=== PATIENT | male | born 1960 | race Caucasian/White ===

== ENCOUNTER 2018-03-22 00:24 | Emergency (ER) | payer OTHER ==
--- NOTE | 2018-03-22 01:59 | XR ---
EXAMINATION TYPE: XR shoulder complete RT DATE OF EXAM: 03/22/2018 COMPARISON: NONE HISTORY: Right shoulder pain TECHNIQUE: 3 views FINDINGS: I see no fracture nor dislocation. There is spurring at the AC joint. Glenohumeral joint is intact. IMPRESSION: No acute abnormality of the right shoulder.
--- NOTE | 2018-03-22 02:46 | ED ---
Alcohol HPI - General Chief Complaint: Alcohol Stated Complaint: Alcohol Time Seen by Provider: 03/22/18 00:37 Source: patient, EMS, RN notes reviewed, old records reviewed Mode of arrival: EMS Limitations: no limitations - History of Present Illness Initial Comments: This patient's a 57-year-old male presents emergency Department states she went of alcohol intoxication. He was found by [facility] the public quite intoxicated. Approximately 12 beers. He is homeless. Currently no residing at a [facility]. Patient states that he also is having some right shoulder pain it's been going on for months. Reports numbness and tingling to fingers on occasion. - Related Data Previous Rx's Medication Instructions Recorded Ibuprofen [Motrin] 600 mg PO Q8HR PRN #20 tab 03/22/18 chlordiazePOXIDE HCl [Librium] 10 mg PO DIRECTED #6 capsule 03/22/18 Allergies Allergy/AdvReac Type Severity Reaction Status Date / Time No Known Allergies Allergy Verified 03/22/18 00:35 Review of Systems ROS Statement: Those systems with pertinent positive or pertinent negative responses have been documented in the HPI. ROS Other: All systems not noted in ROS Statement are negative. Past Medical History Past Medical History: No Reported History History of Any Multi-Drug Resistant Organisms: None Reported Past Surgical History: Orthopedic Surgery Past Psychological History: No Psychological Hx Reported Smoking Status: Current every day smoker Past Alcohol Use History: Abuse Past Drug Use History: None Reported General Exam - General Exam Comments Initial Comments: Intoxicated 57-year-old male. Patient urinated on himself. Limitations: no limitations General appearance: alert, in no apparent distress Head exam: Present: atraumatic, normocephalic, normal inspection Eye exam: Present: normal appearance, PERRL, EOMI. Absent: scleral icterus, conjunctival injection, periorbital swelling ENT exam: Present: normal exam, mucous membranes moist Neck exam: Present: normal inspection. Absent: tenderness, meningismus, lymphadenopathy Respiratory exam: Present: normal lung sounds bilaterally. Absent: respiratory distress, wheezes, rales, rhonchi, stridor Cardiovascular Exam: Present: regular rate, normal rhythm, normal heart sounds. Absent: systolic murmur, diastolic murmur, rubs, gallop, clicks GI/Abdominal exam: Present: soft, normal bowel sounds. Absent: distended, tenderness, guarding, rebound, rigid Extremities exam: Present: normal inspection, full ROM, normal capillary refill. Absent: tenderness, pedal edema, joint swelling, calf tenderness Back exam: Present: normal inspection Neurological exam: Present: alert, oriented X3, CN II-XII intact Psychiatric exam: Present: normal affect, normal mood Skin exam: Present: warm, dry, intact, normal color. Absent: rash Course Vital Signs 03/22/18 00:31 Temperature 97.3 F L Pulse Rate 94 Respiratory 16 Rate Blood Pressure 123/69 O2 Sat by Pulse 97 Oximetry Medical Decision Making - Medical Decision Making Patient's 57-year-old male presents emergency department today with chief complaint alcohol and station. Patient also has had some right shoulder numbness for the past few months. Patient is quite intoxicated, Patient did urinate on his canceling sleeping. He is arousable and has normal conversation. He did complain of some numbness over his right arm and hand for many months. Vital signs are stable. He is full range of motion of the right arm and shoulder. Normal sensation. X-ray of the shoulder shows no acute abnormalities. At this time discussed the can follow-up with primary care physician with regards of the numbness and tingling down the fingers and arms. Patient will follow up with outpatient treatment service for alcohol abuse. - Radiology Data Radiology results: report reviewed No acute abnormality on right shoulder. Spurring on AC joint=. Disposition Clinical Impression: ETOH abuse, Arm paresthesia, right Disposition: HOME SELF-CARE Condition: Good Instructions: Alcohol Intoxication (ED) Additional Instructions: Patient is follow-up with outpatient treatment facilities. Prescriptions: chlordiazePOXIDE HCl [Librium] 10 mg PO DIRECTED #6 capsule Ibuprofen [Motrin] 600 mg PO Q8HR PRN #20 tab PRN Reason: Pain Is patient prescribed a controlled substance at d/c from ED?: No When asked, does pt state using other controlled substances?: No If prescribed controlled substance>3 days was MAPS reviewed?: No If opioid is for acute pain is fill amount 7 days or less?: No If Rx opioid, was Start Talking consent form obtained?: No Referrals: None,Stated [Primary Care Provider] - 1-2 days Valentina Ivy MD [STAFF PHYSICIAN] - 1-2 days Time of Disposition: 04:29
[2018-03-22 09:16] VITALS: BP 105/71; PULSE 100; RESP 18; TEMP 98.1
== END 2018-03-22 09:16 | disposition home or self-care (01) ==
LOC: EC 00:24
DX: R20.2 Paresthesia of skin (principal); M25.511 Pain in right shoulder; F10.129 Alcohol abuse with intoxication, unspecified; F17.200 Nicotine dependence, unspecified, uncomplicated; Z59.0 Homelessness
CPT/HCPCS: 82075; 99285

== ENCOUNTER 2022-07-02 11:39 | Inpatient (IN) | payer OTHER ==
--- NOTE | 2022-07-02 12:27 | XR ---
EXAMINATION TYPE: XR chest 2V DATE OF EXAM: 07/02/2022 COMPARISON: NONE HISTORY: Shortness of breath TECHNIQUE: Frontal and lateral views of the chest are obtained. FINDINGS: Small bilateral pleural effusions and bibasilar opacities favoring associated compressive atelectasis. Mild interstitial edema or prominence. The upper lungs are clear without pneumothorax T he cardiac silhouette size is upper limits of normal. The osseous structures are intact. IMPRESSION: Small bilateral pleural effusions with associated compressive atelectasis and mild bilat eral interstitial edema. Correlate for fluid overload state.
[2022-07-02 12:51] LABS: Basophils % (A) 0 %; Eosinophils % (A) 0 %; HCT 35.8 % (39.0-53.0); HGB 12.3 gm/dL (13.0-17.5); Lymphocytes # (A) 0.7 k/uL (1.0-4.8); Lymphocytes % (A) 4 %; MCH 32.1 pg (25.0-35.0); MCHC 34.3 g/dL (31.0-37.0); MCV 93.7 fL (80.0-100.0); Mean Platelet Volume 8.9; Monocytes # (A) 0.9 k/uL (0-1.0); Monocytes % (A) 5 %; Neutrophils # (A) 16.9 k/uL (1.3-7.7); Neutrophils % (A) 90 %; Platelet Count 396 k/uL (150-450); RBC 3.82 m/uL (4.30-5.90); RDW 13.9 % (11.5-15.5); WBC 18.8 k/uL (3.8-10.6)
[2022-07-02 13:11] LABS: ALT 24 U/L (4-49); AST 39 U/L (17-59); African American GFR (CKD) >90 (>60 ml/min/1.73 sqM); Albumin 3.2 g/dL (3.5-5.0); Alkaline Phosphatase 59 U/L (38-126); Anion Gap 17 mmol/L; Blood Urea Nitrogen 9 mg/dL (9-20); Calcium 8.3 mg/dL (8.4-10.2); Carbon Dioxide 18 mmol/L (22-30); Chloride 95 mmol/L (98-107); Glucose 116 mg/dL (74-99); Magnesium 1.8 mg/dL (1.6-2.3); Non-African American GFR(CKD) >90 (>60 ml/min/1.73 sqM); Potassium 3.8 mmol/L (3.5-5.1); Sodium 130 mmol/L (137-145)
[2022-07-02 13:20] LABS: Partial Thromboplastin Time 30.6 sec (22.0-30.0); Prothrombin Time 10.9 sec (9.0-12.0)
--- NOTE | 2022-07-02 14:23 | CT ---
EXAMINATION TYPE: CT chest angio for PE DATE OF EXAM: 07/02/2022 COMPARISON: Chest x-ray earlier today HISTORY: Dyspnea CT DLP: 248 mGycm. Automated Exposure Control for Dose Reduction was Utilized. CONTRAST: CTA scan of the thorax is performed with IV Contrast, patient injected with 100 mL of Isovue 370, pul monary embolism protocol. MIP Images are created on CT scanner and reviewed. FINDINGS: LUNGS: Small to borderline moderate size left pleural fluid collection does not completely layer depe ndently. Similar finding on the right is noted. Exam is suboptimal as patient unable to hold breath. Groundglass opacity organizing consolidations in the right lower lobe are present. Findings also seen in the left lower lobe but less prominent. No pneumothorax seen bilaterally. MEDIASTINUM: There is a suboptimal study. Most dense contrast in the SVC. Equal contrast opacificati on of the aorta measuring up to 3.6 cm in diameter. No dissection is seen. Bovine aortic arch and dir ect origin left vertebral artery from arch which are both normal variants. Heterogeneity in the pulmo nary arteries without central pulmonary embolism. Suboptimal evaluation of smaller peripheral segment al and subsegmental branches noted. Mild cardiomegaly confirmed. No pericardial effusion is seen. Mil [id number] left atrial and left ventricular dilatation noted. Enlarged 1.8 x 1.4 cm pericarinal ly mph node axial image 66. Prominent right hilar lymph nodes. Additional prominent lymph nodes througho ut the mediastinum are seen. OTHER: Slight scoliotic curvature. IMPRESSION: 1. Suboptimal study without central pulmonary embolism. Smaller peripheral pulmonary emboli cannot be excluded on this exam. 2. Correlate for CHF exacerbation as there is confirmation of cardiomegaly with small to borderline m oderate sized bilateral pleural fluid collections. 3. There are Ground glass opacity is and organizing consolidations in the bilateral lower lobes right greater than left, acute infectious process needs to be considered. Correlate clinically. 4. Some abnormal thoracic adenopathy. Reactive adenopathy from infection would be favored. Correlate clinically.
--- NOTE | 2022-07-02 14:30 | ED ---
General Adult HPI - General Chief complaint: Shortness of Breath Stated complaint: SOB Time Seen by Provider: 07/02/22 12:07 Source: patient, RN notes reviewed Mode of arrival: ambulatory Limitations: no limitations - History of Present Illness Initial comments: 61-year-old male presents emergency Department from PCPs office for evaluation of shortness breath, cough. Patient states 3 days ago he started having increasing cough states is per . cough at times, states it's worse when he lays down. Patient states he feels short of breath. Patient states that he has no prior lung heart disease. Patient states is normally very active right despite daily. Patient denies any recent medication changes denies abdominal pain denies any GI symptoms clean nausea and diarrhea constipation denies any symptoms leg swelling. - Related Data Home Medications Medication Instructions Recorded Confirmed Cholecalciferol [Vitamin D3 (25 25 mcg PO DAILY 07/02/22 07/02/22 Mcg = 1000 Iu)] Cyanocobalamin (Vitamin B-12) 1,000 mcg PO DAILY 07/02/22 07/02/22 [Vitamin B-12] Allergies Allergy/AdvReac Type Severity Reaction Status Date / Time No Known Allergies Allergy Verified 07/02/22 14:10 Review of Systems ROS Statement: Those systems with pertinent positive or pertinent negative responses have been documented in the HPI. ROS Other: All systems not noted in ROS Statement are negative. Past Medical History Past Medical History: No Reported History History of Any Multi-Drug Resistant Organisms: None Reported Past Surgical History: Orthopedic Surgery Past Psychological History: No Psychological Hx Reported Smoking Status: Current every day smoker Past Alcohol Use History: Occasional Past Drug Use History: None Reported General Exam Limitations: no limitations Course Vital Signs 07/02/22 07/02/22 11:42 13:05 Temperature 98.3 F Pulse Rate 123 H 84 Respiratory 24 18 Rate Blood Pressure 144/88 157/87 O2 Sat by Pulse 90 L 94 L Oximetry Medical Decision Making - Lab Data Result diagrams: 07/02/22 12:43 07/02/22 12:43 Lab Results 07/02/22 07/02/22 07/02/22 Range/Units 12:43 12:43 12:43 WBC 18.8 H (3.8-10.6) k/uL RBC 3.82 L (4.30-5.90) m/uL Hgb 12.3 L (13.0-17.5) gm/dL Hct 35.8 L (39.0-53.0) % MCV 93.7 (80.0-100.0) fL MCH 32.1 (25.0-35.0) pg MCHC 34.3 (31.0-37.0) g/dL RDW 13.9 (11.5-15.5) % Plt Count 396 (150-450) k/uL MPV 8.9 Neutrophils % 90 % Lymphocytes % 4 % Monocytes % 5 % Eosinophils % 0 % Basophils % 0 % Neutrophils # 16.9 H (1.3-7.7) k/uL Lymphocytes # 0.7 L (1.0-4.8) k/uL Monocytes # 0.9 (0-1.0) k/uL Eosinophils # 0.0 (0-0.7) k/uL Basophils # 0.0 (0-0.2) k/uL PT 10.9 (9.0-12.0) sec INR 1.0 (<1.2) APTT 30.6 H (22.0-30.0) sec D-Dimer 6.27 H (<0.60) mg/L FEU Sodium 130 L (137-145) mmol/L Potassium 3.8 (3.5-5.1) mmol/L Chloride 95 L (98-107) mmol/L Carbon Dioxide 18 L (22-30) mmol/L Anion Gap 17 mmol/L BUN 9 (9-20) mg/dL Creatinine 0.62 L (0.66-1.25) mg/dL Est GFR (CKD-EPI)AfAm >90 (>60 ml/min/1.73 sqM) Est GFR (CKD-EPI)NonAf >90 (>60 ml/min/1.73 sqM) Glucose 116 H (74-99) mg/dL Plasma Lactic Acid Magan (0.7-2.0) mmol/L Calcium 8.3 L (8.4-10.2) mg/dL Magnesium 1.8 (1.6-2.3) mg/dL Total Bilirubin 1.0 (0.2-1.3) mg/dL AST 39 (17-59) U/L ALT 24 (4-49) U/L Alkaline Phosphatase 59 (38-126) U/L Troponin I (0.000-0.034) ng/mL NT-Pro-B Natriuret Pep pg/mL Total Protein 6.0 L (6.3-8.2) g/dL Albumin 3.2 L (3.5-5.0) g/dL 07/02/22 07/02/22 07/02/22 Range/Units 12:43 12:43 12:43 WBC (3.8-10.6) k/uL RBC (4.30-5.90) m/uL Hgb (13.0-17.5) gm/dL Hct (39.0-53.0) % MCV (80.0-100.0) fL MCH (25.0-35.0) pg MCHC (31.0-37.0) g/dL RDW (11.5-15.5) % Plt Count (150-450) k/uL MPV Neutrophils % % Lymphocytes % % Monocytes % % Eosinophils % % Basophils % % Neutrophils # (1.3-7.7) k/uL Lymphocytes # (1.0-4.8) k/uL Monocytes # (0-1.0) k/uL Eosinophils # (0-0.7) k/uL Basophils # (0-0.2) k/uL PT (9.0-12.0) sec INR (<1.2) APTT (22.0-30.0) sec D-Dimer (<0.60) mg/L FEU Sodium (137-145) mmol/L Potassium (3.5-5.1) mmol/L Chloride (98-107) mmol/L Carbon Dioxide (22-30) mmol/L Anion Gap mmol/L BUN (9-20) mg/dL Creatinine (0.66-1.25) mg/dL Est GFR (CKD-EPI)AfAm (>60 ml/min/1.73 sqM) Est GFR (CKD-EPI)NonAf (>60 ml/min/1.73 sqM) Glucose (74-99) mg/dL Plasma Lactic Acid Magan 1.3 (0.7-2.0) mmol/L Calcium (8.4-10.2) mg/dL Magnesium (1.6-2.3) mg/dL Total Bilirubin (0.2-1.3) mg/dL AST (17-59) U/L ALT (4-49) U/L Alkaline Phosphatase (38-126) U/L Troponin I <0.012 (0.000-0.034) ng/mL NT-Pro-B Natriuret Pep 826 pg/mL Total Protein (6.3-8.2) g/dL Albumin (3.5-5.0) g/dL Disposition Clinical Impression: Pulmonary edema, New onset of congestive heart failure, Bilateral pneumonia Disposition: ADMITTED IP TO THIS HOSP Condition: Fair Referrals: Kristin Cavanaugh MD [Primary Care Provider] - 1-2 days Time of Disposition: 14:30
[2022-07-02] MEDS ORDERED: IPRATROPIUM-ALBUTEROL 3 ML NEB INHALATION PRN (14:35)
[2022-07-02] MEDS ORDERED: PNEUMONIA PROTOCOL UTILIZED 1 EACH MISC PO PRN (14:35)
[2022-07-02] MEDS ORDERED: AZITHROMYCIN 500 MG in SODIUM CHLORIDE 0.9% 250 ML IVPB STA (14:35)
[2022-07-02] MEDS ORDERED: FUROSEMIDE 10 MG/ML 4 ML VIAL IV STA (15:18)
--- NOTE | 2022-07-03 01:44 | P.HPIM ---
History of Present Illness H&P Date: 07/02/22 Chief Complaint: Exertional dyspnea Patient is a 61-year-old male with a known history of ongoing nicotine Addiction was sent to ER by his primary care physician for evaluation of cough and shortness of breath. Patient states that he has been having exertional dyspnea and cough for the past 3 days. Patient states that he has been feeling well before this and is easily active daily.. Patient does have cough without much sputum production. Denied any fevers or chills at home. No complaints of chest pain. No nausea vomiting abdominal pain or diarrhea. On admission blood pressure was 144/88 pulse 123 respiration 24 and pulse ox 90% on room air. Chest x-ray showed small bilateral pleural effusions with associated compressive ectasis and mild bilateral interstitial edema. Correlate for fluid overload state. Patient was found to have elevated D-dimer level to 6. CT angiogram of the chest showed suboptimal study without central pulmonary embolism. Smaller per ipheral pulmonary emboli cannot be excluded. Correlate for CHF exacerbation as there is confirmation of cardiomegaly with small to borderline moderate sized bilateral pleural fluid collections. Groundglass opacity is an organizing consolidations in the bilateral lower lobes right greater than left, acute infective process need to be considered. Correlate clinically. Some abnormal thoracic adenopathy. Reactive adenopathy from infection will be favored. Laboratory data showed WBC 18.8 hemoglobin 12.3 and platelets 396 neutrophils 16.9 D-dimer 6.27 Sodium 130 potassium 3.8 chloride 95 bicarb is 18 BUN 9 and creatinine 0.62 and blood sugar 116 Liver enzymes are not elevated proBNP 826 and albumin level is 3.2 Coronavirus PCR not detected. Review of Systems Constitutional: Patient denies any fever or chills . no Generalized weakness. Abdomen: Patient denied any nausea or vomiting or abd. pain Cardiovascular: Patient denies any chest pain. Positive short of breath no palpitations. No leg swelling Respiratory: Patient does have cough with whitish sputum production. Exertional dyspnea and shortness of breath Neurologic: Patient denied any numbness or tingling headache. Musculoskeletal: Patient denies any complaints of joint swelling or deformity. Skin: Negative Psychiatric: Negative Endocrine: No heat or cold intolerance. No recent weight gain. Genitourinary: No dysuria or hematuria. All other 14 point ROS negative except the above Past Medical History Past Medical History: No Reported History History of Any Multi-Drug Resistant Organisms: None Reported Past Surgical History: Orthopedic Surgery Past Psychological History: No Psychological Hx Reported Smoking Status: Current every day smoker Past Alcohol Use History: Occasional Past Drug Use History: None Reported Medications and Allergies Home Medications Medication Instructions Recorded Confirmed Type Cholecalciferol [Vitamin D3 (25 25 mcg PO DAILY 07/02/22 07/02/22 History Mcg = 1000 Iu)] Cyanocobalamin (Vitamin B-12) 1,000 mcg PO DAILY 07/02/22 07/02/22 History [Vitamin B-12] Allergies Allergy/AdvReac Type Severity Reaction Status Date / Time No Known Allergies Allergy Verified 07/02/22 14:10 Physical Exam Vitals: Vital Signs Temp Pulse Pulse Resp BP BP Pulse Ox 07/02/22 20:10 18 07/02/22 20:00 97.0 F L 111 H 17 131/89 94 L 07/02/22 15:55 94 L 07/02/22 15:16 90 18 134/71 94 L 07/02/22 13:05 84 18 157/87 94 L 07/02/22 11:42 98.3 F 123 H 24 144/88 90 L FiO2 07/02/22 20:10 07/02/22 20:00 07/02/22 15:55 21 07/02/22 15:16 07/02/22 13:05 07/02/22 11:42 Intake and Output 07/02/22 07/02/22 07/02/22 06:59 14:59 22:59 Other: Voiding Method Toilet # Voids 1 Weight 75.75 kg 75.75 kg PHYSICAL EXAMINATION: Patient is lying in the bed comfortably, no acute distress, awake alert and oriented.. HEENT: Normocephalic. Neck is supple. Pupils reactive. Nostrils clear. Oral cavity is moist. Neck reveals no JVD, carotid bruits, or thyromegaly. CHEST EXAMINATION: Trachea is central. Symmetrical expansion. Bibasilar crackles and mild expiratory wheeze. No rhonchi. Nonlabored breathing.. CARDIAC: Normal S1, S2 with no gallops. No murmurs ABDOMEN: Soft. Bowel sounds present. Nontender. No organomegaly. No abdominal bruits. Extremities: reveal no edema. No clubbing or cyanosis Neurologically awake, alert, oriented x3 with well-coordinated movements. No focal deficits noted Skin: No rash or skin lesions. Psychiatric: Coperative. Nonsuicidal, Musculoskeletal: No joint swelling or deformity. Normal range of motion. Results CBC & Chem 7: 07/02/22 12:43 07/02/22 12:43 Labs: Abnormal Lab Results - Last 24 Hours (Table) 07/02/22 07/02/22 07/02/22 Range/Units 12:43 12:43 12:43 WBC 18.8 H (3.8-10.6) k/uL RBC 3.82 L (4.30-5.90) m/uL Hgb 12.3 L (13.0-17.5) gm/dL Hct 35.8 L (39.0-53.0) % Neutrophils # 16.9 H (1.3-7.7) k/uL Lymphocytes # 0.7 L (1.0-4.8) k/uL APTT 30.6 H (22.0-30.0) sec D-Dimer 6.27 H (<0.60) mg/L FEU Sodium 130 L (137-145) mmol/L Chloride 95 L (98-107) mmol/L Carbon Dioxide 18 L (22-30) mmol/L Creatinine 0.62 L (0.66-1.25) mg/dL Glucose 116 H (74-99) mg/dL Calcium 8.3 L (8.4-10.2) mg/dL Total Protein 6.0 L (6.3-8.2) g/dL Albumin 3.2 L (3.5-5.0) g/dL Thrombosis Risk Factor Assmnt - DVT/VTE Prophylaxis DVT/VTE Prophylaxis: Pharmacologic Prophylaxis ordered - Choose All That Apply Any of the Below Risk Factors Present?: Yes Each Factor Represents 1 point: Age 41-60 years Other Risk Factors: No Other congenital or acquired thrombophilia - If yes, enter type in comment: No Thrombosis Risk Factor Assessment Total Risk Factor Score: 1 Thrombosis Risk Factor Assessment Level: Low Risk Assessment and Plan Assessment: Acute bilateral pneumonia with groundglass opacity and organizing consolidat ions. Sepsis secondary to pneumonia Moderate bilateral pleural effusion Possible underlying COPD Hypovolemic hyponatremia Ongoing nicotine addiction History of COVID-19 infection in November 2020 DVT prophylaxis with heparin subcu Plan: Patient will be continued on antibiotics azithromycin and ceftriaxone IV. Follow-up sputum cultures and blood cultures. Patient was given IV Lasix and continue with duo nebs. Pulmonary was consulted due to alkalizing consolidation and pleural effusions. Continue to follow closely. Prognosis guarded.. Time with Patient: Greater than 30
--- NOTE | 2022-07-03 08:34 | XR ---
EXAMINATION TYPE: XR chest 2V DATE OF EXAM: 07/03/2022 COMPARISON: Chest x-ray and CT 07/02/2022 HISTORY: Pneumonia TECHNIQUE: Frontal and lateral views of the chest are obtained. FINDINGS: Bibasilar density obscures the hemidiaphragms. Heart is also obscured and may be enlarged. There is no evident pneumothorax. Bones are stable. IMPRESSION: Possible basilar basilar effusions with associated atelectasis, correlate for pneumonia or possible congestive heart failure
[2022-07-03] MEDS: HEPARIN SODIUM,PORCINE/PF 5,000 UNIT/0.5 ML SYRINGE SQ SCH ×3 (09:43→23:45)
[2022-07-03] MEDS: FAMOTIDINE 20 MG TAB PO SCH ×2 (09:44→20:27)
[2022-07-03] MEDS: CHOLECALCIFEROL 25 MCG (1000 IU) TABLET PO SCH (09:44)
[2022-07-03] MEDS: CYANOCOBALAMIN 500 MCG TAB PO SCH (09:50)
[2022-07-03] MEDS: AZITHROMYCIN 500 MG TAB PO SCH (10:58)
[2022-07-03 12:55] LABS: Basophils # (A) 0.09 X 10*3/uL (0.00-0.10); Basophils % (A) 0.5 %; Eosinophils # (A) 0.05 X 10*3/uL (0.04-0.35); Eosinophils % (A) 0.3 %; HCT 34.2 % (39.6-50.0); HGB 11.6 g/dL (13.0-17.0); Immature Grans, Automated 1.1 %; Lymphocytes # (A) 1.06 X 10*3/uL (0.90-5.00); Lymphocytes % (A) 5.4 %; MCH 31.8 pg (27.0-32.0); MCHC 33.9 g/dL (32.0-37.0); MCV 93.7 fL (80.0-97.0); Mean Platelet Volume 11.2 fL (9.5-12.2); Monocytes # (A) 1.05 X 10*3/uL (0.20-1.00); Monocytes % (A) 5.4 %; NRBC Per 100 WBC 0 /100 WBCS (0.0-0.0); Neutrophils # (A) 17.14 X 10*3/uL (1.80-7.70); Neutrophils % (A) 87.3 %; Platelet Count 465 X 10*3/uL (140-440); RBC 3.65 X 10*6/uL (4.40-5.60); RDW 15.5 % (11.5-14.5)
[2022-07-03 13:20] LABS: BUN/Creat Ratio 15.98 Ratio (12.00-20.00); Blood Urea Nitrogen 10.5 mg/dL (9.0-27.0); Calcium 8.3 mg/dL (8.7-10.3); Carbon Dioxide 23.6 mmol/L (20.0-27.5); Chloride 94 mmol/L (96-109); Glucose 159 mg/dL (70-110); Non-African American GFR(CKD) 105.3 (60.0-200.0); Potassium 3.3 mmol/L (3.5-5.5); Sodium 132 mmol/L (135-145)
[2022-07-03] MEDS ORDERED: POTASSIUM CHLORIDE ER 20 MEQ TAB.ER PO STA (13:52)
--- NOTE | 2022-07-03 15:08 | P.CNPUL ---
History of Present Illness Consult date: 07/03/22 Requesting physician: Esau Husain Reason for consult: dyspnea, abnormal CXR/CT Chief complaint: Shortness of breath, cough or congestion History of present illness: This a very pleasant 61-year-old male patient who Follows Doctor Salvador Hughes. He has no significant past medical history. Not on any home medications. He developed increasing shortness of breath, cough and congestion and presented here to the emergency room yesterday for the same. Chest x-ray reveals small bilateral pleural effusions with associated compressive atelectasis and mild bilateral interstitial edema. Fluid volume overload. CT angiogram was suboptimal for central pulmonary embolism. Correlate for CHF exacerbation as there is confirmation of cardiomegaly small to borderline pleural effusions. There is groundglass opacity and organizing consolidation in the bilateral lower shoulders right greater than left, acute processes be considered. Thoracic adenopathy. Reactive adenopathy from infection is favored. Drip, acute infectious process needs to be considered. Some abnormal thoracic adenopathy. Reactive adenopathy from infection is favored. White count 19.6. Hemoglobin 11.6. D-dimer 6.27. Sodium 132. Potassium 3.3. Glucose 159. proCalcitonin 0.49. Clindamycin by PCR not detected. ProBNP 826. He has been initiated on azithromycin and ceftriaxone. Heparin for DVT prophylaxis. He was given Lasix 40 mg IVP 1. He is seen today in consultation on the regular medical floor. Awake and alert in no acute distress. He is currently maintaining good O2 saturations in the 90s on room air. Afebrile. Hemodynamically stable. Review of Systems REVIEW OF SYSTEMS: CONSTITUTIONAL: Denies any recent significant weight loss or weight gain. EYES: Denies change in vision. EARS, NOSE, MOUTH, THROAT: Denies headaches, denies sore throat. CARDIOVASCULAR: Denies chest pain, palpitations or syncopal episodes. RESPIRATORY: Positive for shortness of breath, cough, congestion no hemoptysis. GASTROINTESTINAL: Denies change in appetite, denies abdominal pain GENITOURINARY: Denies hematuria, denies infections. MUSKULOSKELETAL: Denies pain, denies swelling. INTEGUMENTARY: Denies rash, denies eczema. NEUROLOGICAL: Denies recent memory loss, no recent seizure activity. PSYCHIATRIC: Denies anxiety, denies depression. HEMATOLOGIC/LYMPHATIC: Denies anemia, denies enlarged lymph nodes. Past Medical History Past Medical History: No Reported History History of Any Multi-Drug Resistant Organisms: None Reported Past Surgical History: Orthopedic Surgery Past Psychological History: No Psychological Hx Reported Smoking Status: Current every day smoker Past Alcohol Use History: Occasional Past Drug Use History: None Reported Medications and Allergies Home Medications Medication Instructions Recorded Confirmed Type Cholecalciferol [Vitamin D3 (25 25 mcg PO DAILY 07/02/22 07/02/22 History Mcg = 1000 Iu)] Cyanocobalamin (Vitamin B-12) 1,000 mcg PO DAILY 07/02/22 07/02/22 History [Vitamin B-12] Allergies Allergy/AdvReac Type Severity Reaction Status Date / Time No Known Allergies Allergy Verified 07/02/22 14:10 Physical Exam Vitals: Vital Signs Temp Pulse Pulse Resp BP BP Pulse Ox 07/03/22 07:43 98.3 F 87 18 119/75 91 L 07/03/22 01:58 96.9 F L 91 16 124/77 92 L 07/02/22 20:10 18 07/02/22 20:00 97.0 F L 111 H 17 131/89 94 L 07/02/22 15:55 94 L 07/02/22 15:16 90 18 134/71 94 L FiO2 07/03/22 07:43 07/03/22 01:58 07/02/22 20:10 07/02/22 20:00 07/02/22 15:55 21 07/02/22 15:16 Intake and Output 07/02/22 07/03/22 07/03/22 22:59 06:59 14:59 Other: Voiding Method Toilet Toilet # Voids 1 4 Weight 75.75 kg GENERAL EXAM: Alert, pleasant 61-year-old male patient on room air, comfortable in no apparent distress. HEAD: Normocephalic. EYES: Normal reaction of pupils, equal size. NOSE: Clear with pink turbinates. THROAT: No erythema or exudates. NECK: No masses, no JVD. CHEST: No chest wall deformity. LUNGS: Equal air entry with faint crackles in the posterior bases. CVS: S1 and S2 normal with no audible murmur, regular rhythm. ABDOMEN: No hepatosplenomegaly, normal bowel sounds, no guarding or rigidity. SPINE: No scoliosis or deformity SKIN: No rashes CENTRAL NERVOUS SYSTEM: No focal deficits, tone is normal in all 4 extremities. EXTREMITIES: There is no peripheral edema. No clubbing, no cyanosis. Peripheral pulses are intact. Results - Laboratory Findings CBC and BMP: 07/03/22 06:53 07/03/22 06:53 PT/INR, D-dimer PT 10.9 sec (9.0-12.0) 07/02/22 12:43 INR 1.0 (<1.2) 07/02/22 12:43 D-Dimer 6.27 mg/L FEU (<0.60) H 07/02/22 12:43 Abnormal lab findings: Abnormal Labs 07/02/22 07/02/22 07/02/22 12:43 12:43 12:43 WBC 18.8 H RBC 3.82 L Hgb 12.3 L Hct 35.8 L RDW Plt Count Immature Gran # Neutrophils # 16.9 H Lymphocytes # 0.7 L Monocytes # APTT 30.6 H D-Dimer 6.27 H Sodium 130 L Potassium Chloride 95 L Carbon Dioxide 18 L Creatinine 0.62 L Glucose 116 H Calcium 8.3 L Total Protein 6.0 L Albumin 3.2 L Procalcitonin 07/03/22 07/03/22 07/03/22 06:53 06:53 06:53 WBC 19.60 H RBC 3.65 L Hgb 11.6 L Hct 34.2 L RDW 15.5 H Plt Count 465 H Immature Gran # 0.21 H Neutrophils # 17.14 H Lymphocytes # Monocytes # 1.05 H APTT D-Dimer Sodium 132 L Potassium 3.3 L Chloride 94 L Carbon Dioxide Creatinine Glucose 159 H Calcium 8.3 L Total Protein Albumin Procalcitonin 0.49 H - Diagnostic Findings Chest x-ray: image reviewed CT scan - chest: image reviewed Assessment and Plan Assessment: Dyspnea secondary to suspected exacerbation of possible systolic versus diastoli c congestive heart failure and/or community-acquired pneumonia. Echocardiogram pending. Procalcitonin 0.49. Bermudez virus not detected Leukocytosis secondary to above Chronic and ongoing tobacco dependence Plan: The patient was seen and evaluated Chest x-ray, CAT scan and labs reviewed Continue azithromycin and ceftriaxone for now Echocardiogram pending He is educated regarding the importance of complete smoking cessation Nicoderm patch should be ordered. We will continue to follow and make further recommendations based on his clinical status I have personally seen and examined the patient, performed the documentation and the assessment and plan as written. Number of minutes spent on the visit: 20.
--- NOTE | 2022-07-03 15:21 | CA ---
Transthoracic Echo Report Name: Vadim Velez Age: 61 Gender: M : 1960 Exam Date: 07/02/2022 15:32 Exam Location: [facility] Ht (in): 72 Wt (lb): 167 Ordering Physician: Ricky Benedict Attending/Referring Phys: [id number], Jak [employer] Kika Goode, RACHAEL Procedure CPT: Indications: Bilateral pleural effusion, pulmonary edema Cardiac Hx: Technical Quality: Contrast 1: Total Dose (mL): Contrast 2: Total Dose (mL): MEASUREMENTS (Male / Female) Normal Values 2D ECHO LV Diastolic Diameter PLAX 4.9 cm 4.2 - 5.9 / 3.9 - 5.3 cm LV Systolic Diameter PLAX 3.4 cm IVS Diastolic Thickness 1.0 cm 0.6 - 1.0 / 0.6 - 0.9 cm LVPW Diastolic Thickness 1.6 cm 0.6 - 1.0 / 0.6 - 0.9 cm LV Relative Wall Thickness 0.5 M-MODE Aortic Root Diameter MM 3.5 cm LA Systolic Diameter MM 3.9 cm LA Ao Ratio MM 1.1 MV E Point Septal Separation 0.3 cm AV Cusp Separation MM 2.2 cm DOPPLER MV Area PHT 3.6 cm??? Mitral E Point Velocity 67.7 cm/s Mitral A Point Velocity 86.0 cm/s Mitral E to A Ratio 0.8 MV Deceleration Time 211.9 ms MV E' Velocity 8.8 cm/s Mitral E to MV E' Ratio 7.7 TR Peak Velocity 277.8 cm/s TR Peak Gradient 30.9 mmHg Right Ventricular Systolic Press 35.8 mmHg FINDINGS Left Ventricle Left ventricular ejection fraction is estimated at 50-55%. Right Ventricle Mild right ventricular dilatation. Mild pulmonary hypertension. Right Atrium Normal right atrial size. Left Atrium Normal left atrial size. Mitral Valve Structurally normal mitral valve. Mild mitral regurgitation. Aortic Valve Trileaflet aortic valve. Tricuspid Valve Structurally normal tricuspid valve. Pulmonic Valve Structurally normal pulmonic valve. Pericardium Normal pericardium. Aorta Normal size aortic root and proximal ascending aorta. CONCLUSIONS Normal LV systolic function Previewed by: Dr. Lennox Benítez MD (Electronically Signed) Final Date: 03 July 2022 15:20
[2022-07-03] MEDS: NICOTINE 14MG/24HR PATCH TRANSDERM SCH (16:06)
--- NOTE | 2022-07-04 00:49 | P.PN ---
Subjective Progress Note Date: 07/03/22 Patient is a 61-year-old male with a known history of ongoing nicotine Addiction was sent to ER by his primary care physician for evaluation of cough and shortness of breath. Patient states that he has been having exertional dyspnea and cough for the past 3 days. Patient states that he has been feeling well before this and is easily active daily.. Patient does have cough without much sputum production. Denied any fevers or chills at home. No complaints of chest pain. No nausea vomiting abdominal pain or diarrhea. On admission blood pressure was 144/88 pulse 123 respiration 24 and pulse ox 90% on room air. Chest x-ray showed small bilateral pleural effusions with associated compressive ectasis and mild bilateral interstitial edema. Correlate for fluid overload state. Patient was found to have elevated D-dimer level to 6. CT angiogram of the chest showed suboptimal study without central pulmonary embolism. Smaller peripheral pulmonary emboli cannot be excluded. Correlate for CHF exacerbation as there is confirmation of cardiomegaly with small to borderline moderate sized bilateral pleural fluid collections. Groundglass opacity is an organizing consolidations in the bilateral lower lobes right greater than left, acute infective process need to be considered. Correlate clinically. Some abnormal thoracic adenopathy. Reactive adenopathy from infection will be favored. Laboratory data showed WBC 18.8 hemoglobin 12.3 and platelets 396 neutrophils 16.9 D-dimer 6.27 Sodium 130 potassium 3.8 chloride 95 bicarb is 18 BUN 9 and creatinine 0.62 and blood sugar 116 Liver enzymes are not elevated proBNP 826 and albumin level is 3.2 Coronavirus PCR not detected. 07/03/2022 Patient is currently lying in the bed. Awake alert and oriented x3. Patient states that his breathing is better today. Currently on room air. Patient has been afebrile. No nausea vomiting or diarrhea. Still having exertional short of breath. Patient is being current on antibiotics in the form of ceftriaxone and azithromycin. Continue on duo nebs. Pulmonology is on board. Laboratory data showed WBC 19.6 hemoglobin 11.6 and platelets 465 BUN 10.5 and creatinine 0.7 sodium 132 potassium 3.3 chloride 94 and procalcitonin level was 0.49. Current medications reviewed. Objective - Vital Signs Vital signs: Vital Signs Temp 98.3 F 07/03/22 07:43 Pulse 87 07/03/22 07:43 Resp 18 07/03/22 07:43 BP 119/75 07/03/22 07:43 Pulse Ox 91 L 07/03/22 07:43 FiO2 21 07/02/22 15:55 Intake & Output 07/02/22 07/03/22 07/03/22 18:59 06:59 18:59 Weight 75.75 kg Other: Voiding Method Toilet Toilet # Voids 1 4 - Exam PHYSICAL EXAMINATION: Patient is lying in the bed comfortably, no acute distress, awake alert and oriented.. HEENT: Normocephalic. Neck is supple. Pupils reactive. Nostrils clear. Oral cavity is moist. Neck reveals no JVD, carotid bruits, or thyromegaly. CHEST EXAMINATION: Trachea is central. Symmetrical expansion. Bibasilar crackles and mild expiratory wheeze. No rhonchi. Nonlabored breathing.. CARDIAC: Normal S1, S2 with no gallops. No murmurs ABDOMEN: Soft. Bowel sounds present. Nontender. No organomegaly. No abdominal bruits. Extremities: reveal no edema. No clubbing or cyanosis Neurologically awake, alert, oriented x3 with well-coordinated movements. No focal deficits noted Skin: No rash or skin lesions. Psychiatric: Coperative. Nonsuicidal, Musculoskeletal: No joint swelling or deformity. Normal range of motion. - Labs CBC & Chem 7: 07/03/22 06:53 07/03/22 06:53 Labs: Abnormal Lab Results - Last 24 Hours (Table) 07/03/22 07/03/22 07/03/22 Range/Units 06:53 06:53 06:53 WBC 19.60 H (4.50-10.00) X 10*3/uL RBC 3.65 L (4.40-5.60) X 10*6/uL Hgb 11.6 L (13.0-17.0) g/dL Hct 34.2 L (39.6-50.0) % RDW 15.5 H (11.5-14.5) % Plt Count 465 H (140-440) X 10*3/uL Immature Gran # 0.21 H (0.00-0.04) X 10*3/uL Neutrophils # 17.14 H (1.80-7.70) X 10*3/uL Monocytes # 1.05 H (0.20-1.00) X 10*3/uL Sodium 132 L (135-145) mmol/L Potassium 3.3 L (3.5-5.5) mmol/L Chloride 94 L (96-109) mmol/L Glucose 159 H (70-110) mg/dL Calcium 8.3 L (8.7-10.3) mg/dL Procalcitonin 0.49 H (0.02-0.09) ng/mL Assessment and Plan Assessment: Acute bilateral pneumonia with groundglass opacity and organizing conso lidations. Sepsis secondary to pneumonia Moderate bilateral pleural effusion Possible underlying COPD Hypovolemic hyponatremia Ongoing nicotine addiction History of COVID-19 infection in November 2020 DVT prophylaxis with heparin subcu Plan: Patient will be continued on antibiotics azithromycin and ceftriaxone IV. Follow-up sputum cultures and blood cultures. Patient was given IV Lasix and continue with duo nebs. 2D echocardiogram showed normal ejection fraction. Pulmonary was consulted due to organizing consolidation and pleural effusions. Continue to follow closely. Prognosis guarded.. Time with Patient: Greater than 30
[2022-07-04] MEDS: CYANOCOBALAMIN 500 MCG TAB PO SCH (09:52)
[2022-07-04] MEDS: HEPARIN SODIUM,PORCINE/PF 5,000 UNIT/0.5 ML SYRINGE SQ SCH ×3 (09:52→23:43)
[2022-07-04] MEDS: FAMOTIDINE 20 MG TAB PO SCH ×2 (09:52→22:08)
[2022-07-04] MEDS: AZITHROMYCIN 500 MG TAB PO SCH (09:53)
[2022-07-04] MEDS: CHOLECALCIFEROL 25 MCG (1000 IU) TABLET PO SCH (09:53)
[2022-07-04] MEDS: NICOTINE 14MG/24HR PATCH TRANSDERM SCH (10:05)
[2022-07-04 10:45] LABS: Basophils # (A) 0.12 X 10*3/uL (0.00-0.10); Basophils % (A) 0.7 %; Eosinophils # (A) 0.21 X 10*3/uL (0.04-0.35); Eosinophils % (A) 1.2 %; HCT 36.7 % (39.6-50.0); HGB 12.3 g/dL (13.0-17.0); Immature Grans, Automated 2.5 %; Lymphocytes # (A) 1.37 X 10*3/uL (0.90-5.00); Lymphocytes % (A) 8.1 %; MCH 31.9 pg (27.0-32.0); MCHC 33.5 g/dL (32.0-37.0); MCV 95.1 fL (80.0-97.0); Mean Platelet Volume 11.1 fL (9.5-12.2); Monocytes # (A) 1.11 X 10*3/uL (0.20-1.00); Monocytes % (A) 6.6 %; NRBC Per 100 WBC 0 /100 WBCS (0.0-0.0); Neutrophils # (A) 13.71 X 10*3/uL (1.80-7.70); Neutrophils % (A) 80.9 %; Platelet Count 554 X 10*3/uL (140-440); RBC 3.86 X 10*6/uL (4.40-5.60); RDW 15.7 % (11.5-14.5); WBC 16.94 X 10*3/uL (4.50-10.00)
[2022-07-04 10:48] LABS: African American GFR (CKD) 107.2 (60.0-200.0); Anion Gap 12.2 mmol/L (10.00-18.00); BUN/Creat Ratio 15.78 Ratio (12.00-20.00); Blood Urea Nitrogen 14.2 mg/dL (9.0-27.0); Calcium 8.9 mg/dL (8.7-10.3); Carbon Dioxide 26.8 mmol/L (20.0-27.5); Non-African American GFR(CKD) 92.5 (60.0-200.0); Potassium 4.1 mmol/L (3.5-5.5)
--- NOTE | 2022-07-04 14:16 | P.PN ---
Subjective Progress Note Date: 07/04/22 This a very pleasant 61-year-old male patient who Follows Doctor Salvador Hughes. He has no significant past medical history. Not on any home medications. He developed increasing shortness of breath, cough and congestion and presented here to the emergency room yesterday for the same. Chest x-ray reveals small bilateral pleural effusions with associated compressive atelectasis and mild bilateral interstitial edema. Fluid volume overload. CT angiogram was suboptimal for central pulmonary embolism. Correlate for CHF exacerbation as there is confirmation of cardiomegaly small to borderline pleural effusions. There is groundglass opacity and organizing consolidation in the bilateral lower shoulders right greater than left, acute processes be considered. Thoracic adenopathy. Reactive adenopathy from infection is favored. Drip, acute infectious process needs to be considered. Some abnormal thoracic adenopathy. Reactive adenopathy from infection is favored. White count 19.6. Hemoglobin 1 1.6. D-dimer 6.27. Sodium 132. Potassium 3.3. Glucose 159. proCalcitonin 0.49. Clindamycin by PCR not detected. ProBNP 826. He has been initiated on azithromycin and ceftriaxone. Heparin for DVT prophylaxis. He was given Lasix 40 mg IVP 1. He is seen today in consultation on the regular medical floor. Awake and alert in no acute distress. He is currently maintaining good O2 saturations in the 90s on room air. Afebrile. Hemodynamically stable. The patient is seen today 07/04/2022 in follow-up on the regular medical floor. He is currently sitting up in a chair at the bedside. Awake and alert in no acute distress. Denies any worsening shortness of breath, cough or congestion. He is feeling better. Maintaining O2 saturations in the 90s on room air. He's been afebrile. Hemodynamically stable. Blood cultures revealed no growth. White count 16.9. Hemoglobin 12.3. Sodium 139. Potassium 4.1. BUN 14. Creatinine 0.9. He is continued on ceftriaxone. Heparin for DVT prophylaxis. Remains on bronchodilators. NicoDerm patch in place. Objective - Vital Signs Vital signs: Vital Signs Temp 98.1 F 07/04/22 14:00 Pulse 88 07/04/22 14:00 Resp 18 07/04/22 14:00 BP 108/63 07/04/22 14:00 Pulse Ox 92 L 07/04/22 14:00 FiO2 21 07/02/22 15:55 Intake & Output 07/03/22 07/04/22 07/04/22 18:59 06:59 18:59 Other: Voiding Method Toilet Toilet Toilet # Voids 4 - Exam GENERAL EXAM: Alert, 61-year-old male patient, on room air, comfortable in no apparent distress. HEAD: Normocephalic. EYES: Normal reaction of pupils, equal size. NOSE: Clear with pink turbinates. THROAT: No erythema or exudates. NECK: No masses, no JVD. CHEST: No chest wall deformity. LUNGS: Equal air entry with faint crackles in the posterior bases. CVS: S1 and S2 normal with no audible murmur, regular rhythm. ABDOMEN: No hepatosplenomegaly, normal bowel sounds, no guarding or rigidity. SPINE: No scoliosis or deformity SKIN: No rashes CENTRAL NERVOUS SYSTEM: No focal deficits, tone is normal in all 4 extremities. EXTREMITIES: There is no peripheral edema. No clubbing, no cyanosis. Peripheral pulses are intact. - Labs CBC & Chem 7: 07/04/22 07:43 07/04/22 07:43 Labs: Abnormal Lab Results - Last 24 Hours (Table) 07/04/22 07/04/22 Range/Units 07:43 07:43 WBC 16.94 H (4.50-10.00) X 10*3/uL RBC 3.86 L (4.40-5.60) X 10*6/uL Hgb 12.3 L (13.0-17.0) g/dL Hct 36.7 L (39.6-50.0) % RDW 15.7 H (11.5-14.5) % Plt Count 554 H (140-440) X 10*3/uL Immature Gran # 0.42 H (0.00-0.04) X 10*3/uL Neutrophils # 13.71 H (1.80-7.70) X 10*3/uL Monocytes # 1.11 H (0.20-1.00) X 10*3/uL Basophils # 0.12 H (0.00-0.10) X 10*3/uL Glucose 135 H (70-110) mg/dL Microbiology - Last 24 Hours (Table) 07/02/22 15:15 Blood Culture - Preliminary Blood No Growth after 24 hours 07/02/22 15:00 Blood Culture - Preliminary Blood No Growth after 24 hours Assessment and Plan Assessment: Dyspnea secondary to suspected exacerbation of diastolic congestive heart failure and/or community-acquired pneumonia. Procalcitonin 0.49. Bermudez virus n ot detected. Echocardiogram revealed preserved left ventricular systolic function. Leukocytosis secondary to above Chronic and ongoing tobacco dependence Plan: The patient was seen and evaluated Medications and labs reviewed He is cleared for discharge from the pulmonary standpoint Complete a course of antibiotics with Ceftin or Omnicef He is educated regarding the importance of complete smoking cessation Would benefit from a follow-up in our office in 1-2 weeks' I have personally seen and examined the patient, performed the documentation and the assessment and plan as written. Number of minutes spent on the visit: 10.
--- NOTE | 2022-07-04 18:25 | P.PN ---
Subjective Progress Note Date: 07/04/22 61-year-old male with a known history of ongoing nicotine Addiction was sent to ER by his primary care physician for evaluation of cough and shortness of breath. Patient states that he has been having exertional dyspnea and cough for the past 3 days. Patient states that he has been feeling well before this and is easily active daily.. Patient does have cough without much sputum production. Denied any fevers or chills at home. No complaints of chest pain. No nausea vomiting abdominal pain or diarrhea. On admission blood pressure was 144/88 pulse 123 respiration 24 and pulse ox 90% on room air. Chest x-ray showed small bilateral pleural effusions with associated compressive ectasis and mild bilateral interstitial edema. Correlate for fluid overload state. Patient was found to have elevated D-dimer level to 6. CT angiogram of the chest showed suboptimal study without central pulmonary embolism. Smaller peripheral pulmonary emboli cannot be excluded. Correlate for CHF exacerbation as there is confirmation of cardiomegaly with small to borderline moderate sized bilateral pleural fluid collections. Groundglass opacity is an organizing consolidations in the bilateral lower lobes right greater than left, acute infective process need to be considered. Correlate clinically. Some abnormal thoracic adenopathy. Reactive adenopathy from infection will be favored. Laboratory data showed WBC 18.8 hemoglobin 12.3 and platelets 396 neutrophils 16.9 D-dimer 6.27 Sodium 130 potassium 3.8 chloride 95 bicarb is 18 BUN 9 and creatinine 0.62 and blood sugar 116 Liver enzymes are not elevated proBNP 826 and albumin level is 3.2 Coronavirus PCR not detected. Objective - Vital Signs Vital signs: Vital Signs Temp 98.3 F 07/04/22 08:00 Pulse 70 07/04/22 08:00 Resp 19 07/04/22 08:00 BP 125/74 07/04/22 08:00 Pulse Ox 92 L 07/04/22 08:00 FiO2 21 07/02/22 15:55 Intake & Output 07/03/22 07/04/22 07/04/22 18:59 06:59 18:59 Other: Voiding Method Toilet Toilet Toilet # Voids 4 - Exam HEENT: Normocephalic. Neck is supple. Pupils reactive. Nostrils clear. Oral cavity is moist. Neck reveals no JVD, carotid bruits, or thyromegaly. CHEST EXAMINATION: Trachea is central. Symmetrical expansion. Bibasilar crackles and mild expiratory wheeze. No rhonchi. Nonlabored breathing.. CARDIAC: Normal S1, S2 with no gallops. No murmurs ABDOMEN: Soft. Bowel sounds present. Nontender. No organomegaly. No abdominal bruits. Extremities: reveal no edema. No clubbing or cyanosis Neurologically awake, alert, oriented x3 with well-coordinated movements. No focal deficits noted Skin: No rash or skin lesions. Psychiatric: Coperative. Nonsuicidal, Musculoskeletal: No joint swelling or deformity. Normal range of motion. - Labs CBC & Chem 7: 07/04/22 07:43 07/04/22 07:43 Labs: Abnormal Lab Results - Last 24 Hours (Table) 07/04/22 07/04/22 Range/Units 07:43 07:43 WBC 16.94 H (4.50-10.00) X 10*3/uL RBC 3.86 L (4.40-5.60) X 10*6/uL Hgb 12.3 L (13.0-17.0) g/dL Hct 36.7 L (39.6-50.0) % RDW 15.7 H (11.5-14.5) % Plt Count 554 H (140-440) X 10*3/uL Immature Gran # 0.42 H (0.00-0.04) X 10*3/uL Neutrophils # 13.71 H (1.80-7.70) X 10*3/uL Monocytes # 1.11 H (0.20-1.00) X 10*3/uL Basophils # 0.12 H (0.00-0.10) X 10*3/uL Glucose 135 H (70-110) mg/dL Microbiology - Last 24 Hours (Table) 07/02/22 15:15 Blood Culture - Preliminary Blood No Growth after 24 hours 07/02/22 15:00 Blood Culture - Preliminary Blood No Growth after 24 hours Assessment and Plan Assessment: Acute bilateral pneumonia with groundglass opacity and organizing consolidations. Sepsis secondary to pneumonia Moderate bilateral pleural effusion Possible underlying COPD Hypovolemic hyponatremia Ongoing nicotine addiction History of COVID-19 infection in November 2020 DVT prophylaxis with heparin subcu Plan: Patient will be continued on antibiotics azithromycin and ceftriaxone IV. Follow-up sputum cultures and blood cultures. Patient was given IV Lasix and continue with duo nebs. 2D echocardiogram showed normal ejection fraction. Pulmonary was consulted due to organizing consolidation and pleural effusions. Continue to follow closely. Prognosis guarded..
[2022-07-05] MEDS: HEPARIN SODIUM,PORCINE/PF 5,000 UNIT/0.5 ML SYRINGE SQ SCH ×3 (06:52→23:32)
[2022-07-05] MEDS: NICOTINE 14MG/24HR PATCH TRANSDERM SCH (06:53)
[2022-07-05] MEDS: FAMOTIDINE 20 MG TAB PO SCH ×2 (06:53→20:20)
[2022-07-05] MEDS: CYANOCOBALAMIN 500 MCG TAB PO SCH (06:53)
[2022-07-05] MEDS: CHOLECALCIFEROL 25 MCG (1000 IU) TABLET PO SCH (06:53)
[2022-07-05 12:59] LABS: Basophils # (A) 0.1 k/uL (0-0.2); Basophils % (A) 1 %; Eosinophils # (A) 0.2 k/uL (0-0.7); Eosinophils % (A) 1 %; HCT 36.8 % (39.0-53.0); HGB 12.3 gm/dL (13.0-17.5); Lymphocytes # (A) 1.5 k/uL (1.0-4.8); Lymphocytes % (A) 11 %; MCH 31.8 pg (25.0-35.0); MCHC 33.3 g/dL (31.0-37.0); MCV 95.5 fL (80.0-100.0); Mean Platelet Volume 8.8; Monocytes # (A) 0.7 k/uL (0-1.0); Monocytes % (A) 5 %; Neutrophils # (A) 11.1 k/uL (1.3-7.7); Neutrophils % (A) 80 %; Platelet Count 531 k/uL (150-450); RBC 3.86 m/uL (4.30-5.90); RDW 14.5 % (11.5-15.5); WBC 13.9 k/uL (3.8-10.6)
--- NOTE | 2022-07-05 13:06 | P.PN ---
Subjective Progress Note Date: 07/05/22 This a very pleasant 61-year-old male patient who follows Doctor Viola Franco. He has no significant past medical history. Not on any home medications. He developed increasing shortness of breath, cough and congestion and presented here to the emergency room yesterday for the same. Chest x-ray reveals small bilateral pleural effusions with associated compressive atelectasis and mild bilateral interstitial edema. Fluid volume overload. CT angiogram was suboptimal for central pulmonary embolism. Correlate for CHF exacerbation as there is confirmation of cardiomegaly small to borderline pleural effusions. There is groundglass opacity and organizing consolidation in the bilateral lower shoulders right greater than left, acute processes be considered. Thoracic adenopathy. Reactive adenopathy from infection is favored. Drip, acute infectious process needs to be considered. Some abnormal thoracic adenopathy. Reactive adenopathy from infection is favored. White count 19.6. Hemoglobin 1 1.6. D-dimer 6.27. Sodium 132. Potassium 3.3. Glucose 159. proCalcitonin 0.49. Clindamycin by PCR not detected. ProBNP 826. He has been initiated on azithromycin and ceftriaxone. Heparin for DVT prophylaxis. He was given Lasix 40 mg IVP 1. He is seen today in consultation on the regular medical floor. Awake and alert in no acute distress. He is currently maintaining good O2 saturations in the 90s on room air. Afebrile. Hemodynamically stable. The patient is seen today 07/04/2022 in follow-up on the regular medical floor. He is currently sitting up in a chair at the bedside. Awake and alert in no acute distress. Denies any worsening shortness of breath, cough or congestion. He is feeling better. Maintaining O2 saturations in the 90s on room air. He's been afebrile. Hemodynamically stable. Blood cultures revealed no growth. White count 16.9. Hemoglobin 12.3. Sodium 139. Potassium 4.1. BUN 14. Creatinine 0.9. He is continued on ceftriaxone. Heparin for DVT prophylaxis. Remains on bronchodilators. NicoDerm patch in place. Patient is seen today 07/05/2022 in follow-up on the regular medical floor. He is awake and alert in no acute distress. He's been up ambulating in his room. He denies any worsening shortness of breath, cough or congestion. No hemoptysis. He is maintaining O2 saturations in the 90s on room air. He's been afebrile. The cultures revealed no growth. White count 13.9. He won't 13.3. He is continued on ceftriaxone. Heparin for DVT prophylaxis. Continued on bronchodilators. NicoDerm patch in place. Objective - Vital Signs Vital signs: Vital Signs Temp 98.0 F 07/05/22 07:58 Pulse 88 07/05/22 07:58 Resp 18 07/05/22 07:58 BP 109/68 07/05/22 07:58 Pulse Ox 91 L 07/05/22 07:58 FiO2 21 07/02/22 15:55 Intake & Output 07/04/22 07/05/22 07/05/22 18:59 06:59 18:59 Other: Voiding Method Toilet Toilet # Voids 2 3 # Bowel Movements 1 1 - Exam GENERAL EXAM: Alert, pleasant 61-year-old male patient, on room air, comfortable in no apparent distress. HEAD: Normocephalic. EYES: Normal reaction of pupils, equal size. NOSE: Clear with pink turbinates. THROAT: No erythema or exudates. NECK: No masses, no JVD. CHEST: No chest wall deformity. LUNGS: Equal air entry with faint crackles in the posterior bases. CVS: S1 and S2 normal with no audible murmur, regular rhythm. ABDOMEN: No hepatosplenomegaly, normal bowel sounds, no guarding or rigidity. SPINE: No scoliosis or deformity SKIN: No rashes CENTRAL NERVOUS SYSTEM: No focal deficits, tone is normal in all 4 extremities. EXTREMITIES: There is no peripheral edema. No clubbing, no cyanosis. Peripheral pulses are intact. - Labs CBC & Chem 7: 07/05/22 12:51 07/04/22 07:43 Labs: Abnormal Lab Results - Last 24 Hours (Table) 07/05/22 Range/Units 12:51 WBC 13.9 H (3.8-10.6) k/uL RBC 3.86 L (4.30-5.90) m/uL Hgb 12.3 L (13.0-17.5) gm/dL Hct 36.8 L (39.0-53.0) % Plt Count 531 H (150-450) k/uL Neutrophils # 11.1 H (1.3-7.7) k/uL Microbiology - Last 24 Hours (Table) 07/02/22 15:15 Blood Culture - Preliminary Blood No Growth after 48 hours 07/02/22 15:00 Blood Culture - Preliminary Blood No Growth after 48 hours Assessment and Plan Assessment: Dyspnea secondary to suspected exacerbation of diastolic congestive heart failure and/or community-acquired pneumonia. Procalcitonin 0.49. Bermudez virus not detected. Echocardiogram revealed preserved left ventricular systolic function. Leukocytosis secondary to above Chronic and ongoing tobacco dependence Plan: The patient was seen and evaluated Medications and labs reviewed He is cleared for discharge from the pulmonary standpoint Complete a course of antibiotics with Ceftin or Omnicef Again educated regarding the importance of complete smoking cessation Follow-up in our office in 1-2 weeks' I have personally seen and examined the patient, performed the documentation and the assessment and plan as written. Number of minutes spent on the visit: 10.
[2022-07-05 13:16] LABS: African American GFR (CKD) >90 (>60 ml/min/1.73 sqM); Anion Gap 12 mmol/L; Blood Urea Nitrogen 11 mg/dL (9-20); Calcium 8.1 mg/dL (8.4-10.2); Carbon Dioxide 24 mmol/L (22-30); Chloride 98 mmol/L (98-107); Glucose 134 mg/dL (74-99); Non-African American GFR(CKD) >90 (>60 ml/min/1.73 sqM); Potassium 3.7 mmol/L (3.5-5.1); Sodium 134 mmol/L (137-145)
[2022-07-06] MEDS: FAMOTIDINE 20 MG TAB PO SCH (07:00)
[2022-07-06] MEDS: HEPARIN SODIUM,PORCINE/PF 5,000 UNIT/0.5 ML SYRINGE SQ SCH (07:00)
[2022-07-06] MEDS: NICOTINE 14MG/24HR PATCH TRANSDERM SCH (07:01)
[2022-07-06] MEDS: CYANOCOBALAMIN 500 MCG TAB PO SCH (07:01)
[2022-07-06] MEDS: CHOLECALCIFEROL 25 MCG (1000 IU) TABLET PO SCH (07:01)
[2022-07-06 07:46] VITALS: BP 108/69; PULSE 91; RESP 17; TEMP 98.4
--- NOTE | 2022-07-06 11:17 | P.PN ---
Subjective Progress Note Date: 07/06/22 Principal diagnosis: Shortness of breath. This a very pleasant 61-year-old male patient who follows Doctor Viola Franco. He has no significant past medical history. Not on any home medications. He developed increasing shortness of breath, cough and congestion and presented her e to the emergency room yesterday for the same. Chest x-ray reveals small bilateral pleural effusions with associated compressive atelectasis and mild bilateral interstitial edema. Fluid volume overload. CT angiogram was suboptimal for central pulmonary embolism. Correlate for CHF exacerbation as there is confirmation of cardiomegaly small to borderline pleural effusions. There is groundglass opacity and organizing consolidation in the bilateral lower shoulders right greater than left, acute processes be considered. Thoracic adenopathy. Reactive adenopathy from infection is favored. Drip, acute infectious process needs to be considered. Some abnormal thoracic adenopathy. Reactive adenopathy from infection is favored. White count 19.6. Hemoglobin 11.6. D-dimer 6.27. Sodium 132. Potassium 3.3. Glucose 159. proCalcitonin 0.49. Clindamycin by PCR not detected. ProBNP 826. He has been initiated on azithromycin and ceftriaxone. Heparin for DVT prophylaxis. He was given Lasix 40 mg IVP 1. He is seen today in consultation on the regular medical floor. Awake and alert in no acute distress. He is currently maintaining good O2 saturations in the 90s on room air. Afebrile. Hemodynamically stable. The patient is seen today 07/04/2022 in follow-up on the regular medical floor. He is currently sitting up in a chair at the bedside. Awake and alert in no acute distress. Denies any worsening shortness of breath, cough or congestion. He is feeling better. Maintaining O2 saturations in the 90s on room air. He's been afebrile. Hemodynamically stable. Blood cultures revealed no growth. White count 16.9. Hemoglobin 12.3. Sodium 139. Potassium 4.1. BUN 14. Creatinine 0.9. He is continued on ceftriaxone. Heparin for DVT prophylaxis. Remains on bronchodilators. NicoDerm patch in place. Patient is seen today 07/05/2022 in follow-up on the regular medical floor. He is awake and alert in no acute distress. He's been up ambulating in his room. He denies any worsening shortness of breath, cough or congestion. No hemoptysis. He is maintaining O2 saturations in the 90s on room air. He's been afebrile. The cultures revealed no growth. White count 13.9. He won't 13.3. He is continued on ceftriaxone. Heparin for DVT prophylaxis. Continued on bronchodilators. NicoDerm patch in place. Progress note dated 07/06/2022. The patient is on room air. Not receiving any IV fluids. We mentioned yesterday and our note that we thought the patient could be discharged. Clinically, he is very stable. No new labs today. Labs from July 05 are reviewed. Blood cultures are negative. No recent chest x-ray. The patient denies shortness of breath, cough, wheezing, or phlegm production. There is no chest pain or pressure. There is no fever or chills. Objective - Vital Signs Vital signs: Vital Signs Temp 98.4 F 07/06/22 07:45 Pulse 91 07/06/22 07:45 Resp 17 07/06/22 07:45 BP 108/69 07/06/22 07:45 Pulse Ox 92 L 07/06/22 07:45 FiO2 21 07/02/22 15:55 Intake & Output 07/05/22 07/06/22 07/06/22 18:59 06:59 18:59 Intake Total 300 Output Total 0 Balance 0 300 Intake: Oral 300 Output: Stool 0 Other: Voiding Method Toilet # Voids 3 3 - Exam No acute distress, oriented 3. No conversational dyspnea or use of accessory muscles. Room air saturation between 92-95%. HEENT examination is grossly unremarkable. Neck supple. Full range of motion. No adenopathy thyromegaly or neck vein distention. Cardiovascular examination reveals regular rhythm rate. S1-S2 normal. No S3 or S4. No discernible murmur noted. Heart rate 91 bpm. Lungs reveal scattered rhonchi. No wheezes or crackles. Breath sounds equal bilaterally. Abdomen soft bowel sounds are heard. No masses or tenderness. Extremities are intact. No cyanosis clubbing or edema. Skin is without rash or lesion. Neurologic examination is brief but nonfocal. - Labs CBC & Chem 7: 07/05/22 12:51 07/05/22 12:51 Labs: Abnormal Lab Results - Last 24 Hours (Table) 07/05/22 07/05/22 Range/Units 12:51 12:51 WBC 13.9 H (3.8-10.6) k/uL RBC 3.86 L (4.30-5.90) m/uL Hgb 12.3 L (13.0-17.5) gm/dL Hct 36.8 L (39.0-53.0) % Plt Count 531 H (150-450) k/uL Neutrophils # 11.1 H (1.3-7.7) k/uL Sodium 134 L (137-145) mmol/L Glucose 134 H (74-99) mg/dL Calcium 8.1 L (8.4-10.2) mg/dL Microbiology - Last 24 Hours (Table) 07/02/22 15:15 Blood Culture - Preliminary Blood No Growth after 72 hours 07/02/22 15:00 Blood Culture - Preliminary Blood No Growth after 72 hours Assessment and Plan Assessment: Shortness of breath, secondary to suspected exacerbation of diastolic CHF, and/or community-acquired pneumonia. Chronic and ongoing tobacco dependence, rule out COPD. No history of any major medical problems. Plan: Progress note dated 07/06/2022. The patient is stable. He's on room air. The patient could be considered for possible discharge. No additional recommendations are made. We will be happy to see the patient post discharge, for complete pulmonary function testing, to determine whether or not the patient has any underlying COPD, chronic and ongoing tobacco use. Labs, x-rays, and medications are all reviewed. Time with Patient: Less than 30
--- NOTE | 2022-07-06 19:03 | P.PN ---
Subjective Progress Note Date: 07/05/22 61-year-old male with a known history of ongoing nicotine Addiction was sent to ER by his primary care physician for evaluation of cough and shortness of breath. Patient states that he has been having exertional dyspnea and cough for the past 3 days. Patient states that he has been feeling well before this and is easily active daily.. Patient does have cough without much sputum production. Denied any fevers or chills at home. No complaints of chest pain. No nausea vomiting abdominal pain or diarrhea. On admission blood pressure was 144/88 pulse 123 respiration 24 and pulse ox 90% on room air. Chest x-ray showed small bilateral pleural effusions with associated compressive ectasis and mild bilateral interstitial edema. Correlate for fluid overload state. Patient was found to have elevated D-dimer level to 6. CT angiogram of the chest showed suboptimal study without central pulmonary embolism. Smaller peripheral pulmonary emboli cannot be excluded. Correlate for CHF exacerbation as there is confirmation of cardiomegaly with small to borderline moderate sized bilateral pleural fluid collections. Groundglass opacity is an organizing consolidations in the bilateral lower lobes right greater than left, acute infective process need to be considered. Correlate clinically. Some abnormal thoracic adenopathy. Reactive adenopathy from infection will be favored. Laboratory data showed WBC 18.8 hemoglobin 12.3 and platelets 396 neutrophils 16.9 D-dimer 6.27 Sodium 130 potassium 3.8 chloride 95 bicarb is 18 BUN 9 and creatinine 0.62 and blood sugar 116 Liver enzymes are not elevated proBNP 826 and albumin level is 3.2 Coronavirus PCR not detected. 07/05/2022 Patient is seen in follow-up on the regular medical floor. He is awake and alert in no acute distress. He's been up ambulating in his room. He denies any worsening shortness of breath, cough or congestion. No hemoptysis. He is maintaining O2 saturations in the 90s on room air. He's been afebrile. The cultures revealed no growth. White count 13.9. He won't 13.3. He is continued on ceftriaxone. Heparin for DVT prophylaxis. Continued on bronchodilators. NicoDerm patch in place. Objective - Vital Signs Vital signs: Vital Signs Temp 98.0 F 07/05/22 07:58 Pulse 88 07/05/22 07:58 Resp 18 07/05/22 07:58 BP 109/68 07/05/22 07:58 Pulse Ox 91 L 07/05/22 07:58 FiO2 21 07/02/22 15:55 Intake & Output 07/04/22 07/05/22 07/05/22 18:59 06:59 18:59 Other: Voiding Method Toilet Toilet # Voids 2 3 # Bowel Movements 1 1 - Exam HEENT: Normocephalic. Neck is supple. Pupils reactive. Nostrils clear. Oral cavity is moist. Neck reveals no JVD, carotid bruits, or thyromegaly. CHEST EXAMINATION: Trachea is central. Symmetrical expansion. Bibasilar crackles and mild expiratory wheeze. No rhonchi. Nonlabored breathing.. CARDIAC: Normal S1, S2 with no gallops. No murmurs ABDOMEN: Soft. Bowel sounds present. Nontender. No organomegaly. No abdominal bruits. Extremities: reveal no edema. No clubbing or cyanosis Neurologically awake, alert, oriented x3 with well-coordinated movements. No focal deficits noted Skin: No rash or skin lesions. Psychiatric: Coperative. Nonsuicidal, Musculoskeletal: No joint swelling or deformity. Normal range of motion. - Labs CBC & Chem 7: 07/05/22 12:51 07/05/22 12:51 Labs: Microbiology - Last 24 Hours (Table) 07/02/22 15:15 Blood Culture - Preliminary Blood No Growth after 48 hours 07/02/22 15:00 Blood Culture - Preliminary Blood No Growth after 48 hours Assessment and Plan Assessment: Acute bilateral pneumonia with groundglass opacity and organizing consolidations. Sepsis secondary to pneumonia Moderate bilateral pleural effusion Possible underlying COPD Hypovolemic hyponatremia Ongoing nicotine addiction History of COVID-19 infection in November 2020 DVT prophylaxis with heparin subcu Plan: Patient will be continued on antibiotics azithromycin and ceftriaxone IV. Follow-up sputum cultures and blood cultures. Patient was given IV Lasix and continue with duo nebs. 2D echocardiogram showed normal ejection fraction. Pulmonary was consulted due to organizing consolidation and pleural effusions. Continue to follow closely. Prognosis guarded..
--- NOTE | 2022-07-06 19:04 | P.DS ---
Providers Date of admission: 07/02/22 14:47 Expected date of discharge: 07/06/22 Attending physician: Esau Husain Consults: 07/02/22 14:35 Consult Physician Routine Consulting Provider: Roberto Knapp Consult Reason/Comments: Pneumonia, pleural effusion Do you want consulting provider notified?: Yes Primary care physician: [facility] Hospital Course: 61-year-old male with a known history of ongoing nicotine Addiction was sent to ER by his primary care physician for evaluation of cough and shortness of breath. Patient states that he has been having exertional dyspnea and cough for the past 3 days. Patient states that he has been feeling well before this and is easily active daily.. Patient does have cough without much sputum production. Denied any fevers or chills at home. No complaints of chest pain. No nausea vomiting abdominal pain or diarrhea. On admission blood pressure was 144/88 pulse 123 respiration 24 and pulse ox 90% on room air. Chest x-ray showed small bilateral pleural effusions with associated compressive ectasis and mild bilateral interstitial edema. Correlate for fluid overload state. Patient was found to have elevated D-dimer level to 6. CT angiogram of the chest showed suboptimal study without central pulmonary embolism. Smaller peripheral pulmonary emboli cannot be excluded. Correlate for CHF exacerbation as there is confirmation of cardiomegaly with small to borderline moderate sized bilateral pleural fluid collections. Groundglass opacity is an organizing consolidations in the bilateral lower lobes right greater than left, acute infective process need to be considered. Correlate clinically. Some abnormal thoracic adenopathy. Reactive adenopathy from infection will be favored. Laboratory data showed WBC 18.8 hemoglobin 12.3 and platelets 396 neutrophils 16.9 D-dimer 6.27 Sodium 130 potassium 3.8 chloride 95 bicarb is 18 BUN 9 and creatinine 0.62 and blood sugar 116 Liver enzymes are not elevated proBNP 826 and albumin level is 3.2 Coronavirus PCR not detected. 07/05/2022 Patient is seen in follow-up on the regular medical floor. He is awake and alert in no acute distress. He's been up ambulating in his room. He denies any worsening shortness of breath, cough or congestion. No hemoptysis. He is maintaining O2 saturations in the 90s on room air. He's been afebrile. The cultures revealed no growth. White count 13.9. He won't 13.3. He is continued on ceftriaxone. Heparin for DVT prophylaxis. Continued on bronchodilators. NicoDerm patch in place. 07/06/2022; patient is stable and cleared for discharge by pulmonary service on Omnicef 300 mg every 12 hours for 3 days Patient Condition at Discharge: Fair Plan - Discharge Summary Discharge Rx Participant: No New Discharge Prescriptions: New Nicotine 14Mg/24Hr Patch [Habitrol] 1 patch TRANSDERM DAILY 7 Days #7 patch Cefdinir [Omnicef] 300 mg PO Q12HR 3 Days #6 capsule Continue Cholecalciferol [Vitamin D3 (25 Mcg = 1000 Iu)] 25 mcg PO DAILY Cyanocobalamin (Vitamin B-12) [Vitamin B-12] 1,000 mcg PO DAILY Discharge Medication List Cholecalciferol [Vitamin D3 (25 Mcg = 1000 Iu)] 25 mcg PO DAILY 07/02/22 [History] Cyanocobalamin (Vitamin B-12) [Vitamin B-12] 1,000 mcg PO DAILY 07/02/22 [History] Cefdinir [Omnicef] 300 mg PO Q12HR 3 Days #6 capsule 07/06/22 [Rx] Nicotine 14Mg/24Hr Patch [Habitrol] 1 patch TRANSDERM DAILY 7 Days #7 patch 07/06/22 [Rx] Follow up Appointment(s)/Referral(s): Kristin Cavanaugh MD [Primary Care Provider] - 1-2 days Patient Instructions/Handouts: Heart Failure (DC), Pulmonary Edema (DC), Community Acquired Pneumonia (DC) Discharge Disposition: HOME SELF-CARE
== END 2022-07-06 14:20 | disposition home or self-care (01) | DRG 871 ==
LOC: EC 11:39 → 4SSUR 14:47
PROVIDERS: ADMIT Internal Medicine; ATTEND Internal Medicine
DX: A41.9 Sepsis, unspecified organism (principal); I26.99 Other pulmonary embolism without acute cor pulmonale; I50.33 Acute on chronic diastolic (congestive) heart failure; J18.9 Pneumonia, unspecified organism; J98.11 Atelectasis; E87.1 Hypo-osmolality and hyponatremia; Z20.822 Contact with and (suspected) exposure to COVID-19; F17.210 Nicotine dependence, cigarettes, uncomplicated; Z86.16 Personal history of COVID-19; Z71.6 Tobacco abuse counseling; E86.1 Hypovolemia; R59.9 Enlarged lymph nodes, unspecified; I34.0 Nonrheumatic mitral (valve) insufficiency; I27.20 Pulmonary hypertension, unspecified
CPT/HCPCS: 36415; 71046; 71275; 80048; 80053; 83605; 83735; 83880; 84145; 84443; 84484; 85025; 85379; 85610; 85730; 87040; 87635; 93005; 93306; 96365; 96367; 96375; 99285

== ENCOUNTER 2024-07-29 12:28 | Inpatient (IN) | payer OTHER ==
--- NOTE | 2024-07-29 13:01 | ED ---
Male Urogenital HPI - General Source: patient, RN notes reviewed Mode of arrival: ambulatory Limitations: no limitations <Antonio Vann - Last Filed: 07/29/24 12:59> <Teressa Isbell - Last Filed: 07/31/24 09:28> - General Stated complaint: Urogenital Time Seen by Provider: 07/29/24 12:42 - History of Present Illness Initial comments: Quick note: This is a 63-year-old male complaining of a cyst/tumor near his right groin x 1 week. Patient states size has not changed during that time but endorses concern due to bilateral foot swelling since then. States pain is intermittent and 2/10. (Antonio Vann) 63-year-old male who presents to the emergency department with right pubic swelling. States it has been going on for the past week. Denies any trauma. Did admit that he had an upper respiratory infection 1 week ago which passed. No recent surgeries. He states the pain has progressed. He attempted to follow-up with his primary care doctor however he could not get an appointment. He denies any fevers. No nausea or vomiting. States that his lower extremities have been swelling. No history of heart failure. No history of DVT or PE. Admits that it has been more difficult for him to urinate. No dysuria or hematuria. Denies any chronic medical conditions. Has not taken anything stronger than Tylenol for pain. Denies drug or daily alcohol use. Reports to drinking 2 beers last week but denies any injuries. Patient does not take any blood thinners. No other alleviating, precipitating modifying factors (Teressa Isbell) - Related Data Home Medications Medication Instructions Recorded Confirmed No Known Home Medications 07/29/24 07/29/24 Allergies Allergy/AdvReac Type Severity Reaction Status Date / Time No Known Allergies Allergy Verified 07/29/24 17:35 Review of Systems ROS Other: All systems not noted in ROS Statement are negative. <Antonio Vann - Last Filed: 07/29/24 12:59> ROS Other: All systems not noted in ROS Statement are negative. <Teressa Isbell - Last Filed: 07/31/24 09:28> ROS Statement: Those systems with pertinent positive or pertinent negative responses have been documented in the HPI. Past Medical History Past Medical History: No Reported History History of Any Multi-Drug Resistant Organisms: None Reported Past Surgical History: Orthopedic Surgery Past Psychological History: No Psychological Hx Reported Smoking Status: Current every day smoker Past Alcohol Use History: Occasional Past Drug Use History: None Reported <Antonio Vann - Last Filed: 07/29/24 12:59> General Exam Limitations: no limitations <Antonio Vann - Last Filed: 07/29/24 12:59> General appearance: alert, in no apparent distress Head exam: Present: atraumatic, normocephalic, normal inspection Eye exam: Present: normal appearance, PERRL, EOMI. Absent: scleral icterus, conjunctival injection, periorbital swelling ENT exam: Present: normal exam, mucous membranes moist Neck exam: Present: normal inspection. Absent: tenderness, meningismus, lymphadenopathy Respiratory exam: Present: normal lung sounds bilaterally. Absent: respiratory distress, wheezes, rales, rhonchi, stridor Cardiovascular Exam: Present: regular rate, normal rhythm, normal heart sounds. Absent: systolic murmur, diastolic murmur, rubs, gallop, clicks GI/Abdominal exam: Present: soft, distended, tenderness (To the right lower quadrant, suprapubic region. Nonreducible), normal bowel sounds. Absent: guarding, rebound, rigid Extremities exam: Present: normal inspection, full ROM, normal capillary refill. Absent: tenderness, pedal edema, joint swelling, calf tenderness Back exam: Present: normal inspection Neurological exam: Present: alert, oriented X3, CN II-XII intact Psychiatric exam: Present: normal affect, normal mood Skin exam: Present: warm, dry, intact, normal color. Absent: rash <Teressa Isbell - Last Filed: 07/31/24 09:28> - General Exam Comments Initial Comments: Visual Physical Exam Vital signs reviewed General: Well-appearing, nontoxic, no acute distress. Head: Normocephalic, atraumatic Eyes: PERRLA, EOMI ENT: Airway patent Chest: Nonlabored breathing Skin: No visual rash, normal skin tone Neuro: Alert and oriented 3 Musculoskeletal: No gross abnormalities (Antonio Vann) Course Vital Signs 07/29/24 07/29/24 07/29/24 12:54 17:52 20:27 Temperature 98.2 F 98.8 F 98.7 F Pulse Rate 84 87 81 Respiratory 19 20 19 Rate Blood Pressure 119/74 118/74 128/78 O2 Sat by Pulse 98 97 96 Oximetry Medical Decision Making <Antonio Vann - Last Filed: 07/29/24 12:59> - Lab Data Result diagrams: 07/30/24 07:47 07/30/24 07:47 <Teressa Isbell - Last Filed: 07/31/24 09:28> - Medical Decision Making I completed the quick note portion of this chart signed IGNACIO Costa (Antonio Vann) Was pt. sent in by a medical professional or institution ([facility]IND[facility] Moore, SHOE REPAIRER, urgent care, hospital, or fpc...) When possible be specific @ -No Did you speak to anyone other than the patient for history (EMS, parent, family, police, friend...)? What history was obtained from this source @ -No Did you review nursing and triage notes (agree or disagree)? Why? @ -I reviewed and agree with nursing and triage notes Were old charts reviewed (outside hosp., previous admission, EMS record, old EKG, old radiological studies, urgent care reports/EKG's, fpc records)? Report findings @ -No old charts were reviewed Differential Diagnosis (chest pain, altered mental status, abdominal pain women, abdominal pain men, vaginal bleeding, weakness, fever, dyspnea, syncope, headache, dizziness, GI bleed, back pain, seizure, CVA, palpatations, mental health, musculoskeletal)? @ -Strangulated hernia, incarcerated hernia, abdominal mass, lymphadenopathy EKG interpreted by me (3pts min.). @ -Yes and demonstrates sinus rhythm with a rate of 77. SD interval 130. QRS 84. QTc of 425. No acute ST segment elevation or depression X-rays interpreted by me (1pt min.). @ -None done CT interpreted by me (1pt min.). @ -Yes and demonstrates large retroperitoneal mass U/S interpreted by me (1pt. min.). @ -None done What testing was considered but not performed or refused? (CT, X-rays, U/S, labs)? Why? @ -None What meds were considered but not given or refused? Why? @ -None Did you discuss the management of the patient with other professionals (professionals i.e. , PA, SHOE REPAIRER, lab, RT, psych nurse, social media coordinator, income tax auditor, teacher, pharmaceutical officer, vocational case manager)? Give summary @ -Spoke with Dr. Dumont. Recommended admission to medicine with IR consult Was smoking cessation discussed for >3mins.? @ -No Was critical care preformed (if so, how long)? @ -No Were there social determinants of health that impacted care today? How? (Homelessness, low income, unemployed, alcoholism, drug addiction, transportatio n, low edu. Level, literacy, decrease access to med. care, longterm, rehab)? @ -No Was there de-escalation of care discussed even if they declined (Discuss DNR or withdrawal of care, Hospice)? DNR status @ -No What co-morbidities impacted this encounter? (DM, HTN, Smoking, COPD, CAD, Cancer, CVA, ARF, Chemo, Hep., AIDS, mental health diagnosis, sleep apnea, morbid obesity)? @ -None Was patient admitted / discharged? Hospital course, mention meds given and route, prescriptions, significant lab abnormalities, going to OR and other pertinent info. @ -Upon arrival patient seen and evaluated in bed 21. Thorough history and physical exam was performed. IV was established. Laboratory studies are conducted. Patient is sent for CT which demonstrates a large retroperitoneal mass. Spoke with Dr. Dumont. Recommended medicine admission with antibiotics. Serial CBCs. Spoke with the patient and he was agreeable to admission. I will place IR on consult. Patient is admitted to the hospital in stable condition Undiagnosed new problem with uncertain prognosis? @ -No Drug Therapy requiring intensive monitoring for toxicity (Heparin, Nitro, Insulin, Cardizem)? @ -No Were any procedures done? @ -No Diagnosis/symptom? @ -Acute abdominal pain, large retroperitoneal massabscess versus hematoma Acute, or Chronic, or Acute on Chronic? @ -Acute Uncomplicated (without systemic symptoms) or Complicated (systemic symptoms)? @ -Complicated Side effects of treatment? @ -No Exacerbation, Progression, or Severe Exacerbation? @ -No Poses a threat to life or bodily function? How? (Chest pain, USA, VT, pneumonia, PE, COPD, DKA, ARF, appy, cholecystitis, CVA, Diverticulitis, Homicidal, Suicid al, threat to staff... and all critical care pts) @ -No (Teressa Isbell) - Lab Data Lab Results 07/29/24 07/29/24 07/29/24 Range/Units 13:08 13:08 13:08 WBC 9.1 (3.8-10.6) k/uL RBC 3.80 L (4.30-5.90) m/uL Hgb 12.4 L (13.0-17.5) gm/dL Hct 38.8 L (39.0-53.0) % MCV 102.2 H (80.0-100.0) fL MCH 32.6 (25.0-35.0) pg MCHC 31.9 (31.0-37.0) g/dL RDW 12.9 (11.5-15.5) % Plt Count 863 H (150-450) k/uL MPV 6.8 Neutrophils % 68 % Lymphocytes % 24 % Monocytes % 5 % Eosinophils % 1 % Basophils % 1 % Neutrophils # 6.2 (1.3-7.7) k/uL Lymphocytes # 2.2 (1.0-4.8) k/uL Monocytes # 0.5 (0-1.0) k/uL Eosinophils # 0.1 (0-0.7) k/uL Basophils # 0.0 (0-0.2) k/uL PT 10.4 (10.0-12.5) sec INR 0.9 (<1.2) APTT 26.9 (22.0-30.0) sec D-Dimer 1.76 H (<0.60) mg/L FEU Sodium 138 (137-145) mmol/L Potassium 4.4 (3.5-5.1) mmol/L Chloride 106 (98-107) mmol/L Carbon Dioxide 27 (22-30) mmol/L Anion Gap 5 mmol/L BUN 6 L (9-20) mg/dL Creatinine 0.69 (0.66-1.25) mg/dL Est GFR (CKD-EPI)AfAm >90 (>60 ml/min/1.73 sqM) Est GFR (CKD-EPI)NonAf >90 (>60 ml/min/1.73 sqM) Glucose 95 (74-99) mg/dL Plasma Lactic Acid Magan (0.7-2.0) mmol/L Calcium 8.8 (8.4-10.2) mg/dL Total Bilirubin 0.5 (0.2-1.3) mg/dL AST 28 (17-59) U/L ALT 17 (4-49) U/L Alkaline Phosphatase 48 (38-126) U/L Troponin I (0.000-0.034) ng/mL Total Protein 6.6 (6.3-8.2) g/dL Albumin 3.2 L (3.5-5.0) g/dL Urine Color Urine Appearance (Clear) Urine pH (5.0-8.0) Ur Specific [place] (1.001-1.035) Urine Protein (Negative) Urine Glucose (UA) (Negative) Urine Ketones (Negative) Urine Blood (Negative) Urine Nitrite (Negative) Urine Bilirubin (Negative) Urine Urobilinogen (<2.0) mg/dL Ur Leukocyte Esterase (Negative) 07/29/24 07/29/24 07/29/24 Range/Units 13:08 13:08 16:19 WBC (3.8-10.6) k/uL RBC (4.30-5.90) m/uL Hgb (13.0-17.5) gm/dL Hct (39.0-53.0) % MCV (80.0-100.0) fL MCH (25.0-35.0) pg MCHC (31.0-37.0) g/dL RDW (11.5-15.5) % Plt Count (150-450) k/uL MPV Neutrophils % % Lymphocytes % % Monocytes % % Eosinophils % % Basophils % % Neutrophils # (1.3-7.7) k/uL Lymphocytes # (1.0-4.8) k/uL Monocytes # (0-1.0) k/uL Eosinophils # (0-0.7) k/uL Basophils # (0-0.2) k/uL PT (10.0-12.5) sec INR (<1.2) APTT (22.0-30.0) sec D-Dimer (<0.60) mg/L FEU Sodium (137-145) mmol/L Potassium (3.5-5.1) mmol/L Chloride (98-107) mmol/L Carbon Dioxide (22-30) mmol/L Anion Gap mmol/L BUN (9-20) mg/dL Creatinine (0.66-1.25) mg/dL Est GFR (CKD-EPI)AfAm (>60 ml/min/1.73 sqM) Est GFR (CKD-EPI)NonAf (>60 ml/min/1.73 sqM) Glucose (74-99) mg/dL Plasma Lactic Acid Magan 0.7 (0.7-2.0) mmol/L Calcium (8.4-10.2) mg/dL Total Bilirubin (0.2-1.3) mg/dL AST (17-59) U/L ALT (4-49) U/L Alkaline Phosphatase (38-126) U/L Troponin I <0.012 (0.000-0.034) ng/mL Total Protein (6.3-8.2) g/dL Albumin (3.5-5.0) g/dL Urine Color Colorless Urine Appearance Clear (Clear) Urine pH 6.5 (5.0-8.0) Ur Specific [place] >1.050 H (1.001-1.035) Urine Protein Negative (Negative) Urine Glucose (UA) Negative (Negative) Urine Ketones Negative (Negative) Urine Blood Negative (Negative) Urine Nitrite Negative (Negative) Urine Bilirubin Negative (Negative) Urine Urobilinogen <2.0 (<2.0) mg/dL Ur Leukocyte Esterase Negative (Negative) Disposition <Antonio Vann - Last Filed: 07/29/24 12:59> Is patient prescribed a controlled substance at d/c from ED?: No Time of Disposition: 17:01 Decision to Admit Reason: Admit from EC Decision Date: 07/29/24 Decision Time: 17:01 <Teressa Isbell - Last Filed: 07/31/24 09:28> Clinical Impression: Retroperitoneal mass, Groin mass Disposition: ADMITTED IP TO THIS HOSP Condition: Stable
[2024-07-29 13:50] LABS: Basophils % (A) 1 %; Eosinophils # (A) 0.1 k/uL (0-0.7); Eosinophils % (A) 1 %; HCT 38.8 % (39.0-53.0); HGB 12.4 gm/dL (13.0-17.5); Lymphocytes # (A) 2.2 k/uL (1.0-4.8); Lymphocytes % (A) 24 %; MCH 32.6 pg (25.0-35.0); MCHC 31.9 g/dL (31.0-37.0); MCV 102.2 fL (80.0-100.0); Mean Platelet Volume 6.8; Monocytes # (A) 0.5 k/uL (0-1.0); Monocytes % (A) 5 %; Neutrophils # (A) 6.2 k/uL (1.3-7.7); Neutrophils % (A) 68 %; Platelet Count 863 k/uL (150-450); RDW 12.9 % (11.5-15.5); WBC 9.1 k/uL (3.8-10.6)
[2024-07-29 14:03] LABS: ALT 17 U/L (4-49); AST 28 U/L (17-59); African American GFR (CKD) >90 (>60 ml/min/1.73 sqM); Albumin 3.2 g/dL (3.5-5.0); Alkaline Phosphatase 48 U/L (38-126); Anion Gap 5 mmol/L; Blood Urea Nitrogen 6 mg/dL (9-20); Calcium 8.8 mg/dL (8.4-10.2); Carbon Dioxide 27 mmol/L (22-30); Chloride 106 mmol/L (98-107); Glucose 95 mg/dL (74-99); Non-African American GFR(CKD) >90 (>60 ml/min/1.73 sqM); Potassium 4.4 mmol/L (3.5-5.1); Sodium 138 mmol/L (137-145); Total Bilirubin 0.5 mg/dL (0.2-1.3); Total Protein 6.6 g/dL (6.3-8.2)
[2024-07-29 14:06] LABS: INR 0.9 (<1.2); Partial Thromboplastin Time 26.9 sec (22.0-30.0); Prothrombin Time 10.4 sec (10.0-12.5)
--- NOTE | 2024-07-29 14:45 | XR ---
EXAMINATION TYPE: XR chest 2V DATE OF EXAM: 07/29/2024 2:22 PM COMPARISON: Chest radiographs from CLINICAL INDICATION: Male, 63 years old with history of pulmonary edema; [facility] TECHNIQUE: XR chest 2V Frontal and lateral views of the chest. FINDINGS: Lungs/Pleura: There is no evidence of pleural effusion, focal consolidation, or pneumothorax. Pulmonary vascularity: Unremarkable. Heart/mediastinum: Cardiomediastinal silhouette is unremarkable. Musculoskeletal: No acute osseous pathology. Other findings: None IMPRESSION: No acute cardiopulmonary disease/process. No pulmonary edema. [facility], , 07/29/2024 2:42 PM
--- NOTE | 2024-07-29 14:54 | CT ---
EXAMINATION TYPE: CT angio chest DATE OF EXAM: 07/29/2024 COMPARISON: 07/02/2022 CLINICAL INDICATION: Male, 63 years old with history of Elevated D-dimer; PHH, rlq mass/ lower leg sw elling TECHNIQUE: CTA scan of the thorax is performed with IV Contrast, patient injected with 100ml mL of Isovue 370, p ulmonary embolism protocol. MIP images are created and reviewed. CT DLP: combined dlp 1368.[address] CTDI: mGy Automated exposure control for dose reduction was used. FINDINGS: The pulmonary arterial circulation is well opacified with contrast and there are no filling defects t o suggest pulmonary embolism. There is no mediastinal, hilar or axillary adenopathy. The great vessels the chest are normal in diam eter. There is no cardiomegaly. There is no airspace consolidation or abnormal interstitial density. There is no pleural effusion or pneumothorax. There is a stable 6 mm groundglass nodule in the right upper lobe with a tiny solid component. There is no new or suspicious lung mass or nodule. Impression: 1. No evidence of pulmonary embolism. 2. No acute cardiopulmonary disease. [facility], , 07/29/2024 2:52 PM
--- NOTE | 2024-07-29 15:02 | CT ---
EXAMINATION TYPE: CT abdomen pelvis w con DATE OF EXAM: 07/29/2024 COMPARISON: None CLINICAL INDICATION: Male, 63 years old with history of Mass noted near right groin; PHH, rlq mass/ l ower leg swelling TECHNIQUE: Performed without Oral Contrast and with IV Contrast, patient injected with 100ml mL of Isovue 370. CT DLP: combined 1368.[address] CTDI: mGy Automated exposure control for dose reduction was used. FINDINGS: The lung bases are clear. There are multiple gallstones but no gallbladder distention, wall thickening or pericholecystic fluid . There is no biliary ductal dilatation. There is no focal mass or organomegaly involving the liver, pancreas, spleen or adrenal glands. There is no solid renal mass or hydronephrosis and there is homogeneous contrast enhancement of the r enal parenchyma. The caliber the abdominal aorta is normal is no retroperitoneal adenopathy or hemorr neftali. The bowel loops are normal in caliber and there is no evidence of dilatation or obstruction. No infla mmatory changes are identified in the bowel wall or mesentery. There is a massive 16 cm x 13 cm x 19 cm somewhat heterogeneous but predominantly low density fluid collection in the right retroperitoneum which extends into the right aspect of the pelvis and and pr esacral region as well as anteriorly within the right inguinal region and anterior to the pubic symph ysis. The anterior portion of the fluid collection/mass is multiloculated. There are no intraluminal bubbles to suggest abscess but the collection could represent an abscess or possibly chronic hematoma . There are no focal osseous lesions. There is advanced degenerative disc disease in the lower lumbar s pine. IMPRESSION: 1. Massive retroperitoneal complex fluid collection on the right and extending into the presacral reg ion and anterior to the pubic symphysis. Findings suggest possibly an abscess chronic hematoma and cl inical correlation is recommended. 2. Cholelithiasis [facility], , 07/29/2024 3:00 PM
[2024-07-29] MEDS ORDERED: NALOXONE 0.4 MG/ML 1 ML VIAL IV PRN (17:02)
[2024-07-29 18:18] LABS: Appearance,Urine Clear (Clear); Bilirubin,Urine Negative (Negative); Blood,Urine Negative (Negative); Color,Urine Colorless; Glucose,Urine (UA) Negative (Negative); Ketones,Urine Negative (Negative); Leukocyte Esterase,Urine Negative (Negative); Nitrite,Urine Negative (Negative); PH, Urine 6.5 (5.0-8.0); Protein,Urine Negative (Negative); Urobilinogen,Urine <2.0 mg/dL (<2.0)
[2024-07-29] MEDS: PIPERACILLIN-TAZOBACTAM 3.375 GM in SODIUM CHLORIDE 0.9% 100 ML IVPB SCH (18:31)
[2024-07-29 18:38] LABS: Specific Gravity,Urine >1.050 (1.001-1.035)
[2024-07-29] MEDS: ACETAMINOPHEN TAB 325 MG TAB PO PRN (23:12)
[2024-07-30 02:56] LABS: Basophils % (A) 0 %; Eosinophils # (A) 0.1 k/uL (0-0.7); Eosinophils % (A) 2 %; HCT 34.2 % (39.0-53.0); Lymphocytes # (A) 1.7 k/uL (1.0-4.8); Lymphocytes % (A) 21 %; MCH 32.7 pg (25.0-35.0); MCHC 32.2 g/dL (31.0-37.0); MCV 101.4 fL (80.0-100.0); Mean Platelet Volume 7.3; Monocytes # (A) 0.5 k/uL (0-1.0); Monocytes % (A) 6 %; Neutrophils # (A) 5.6 k/uL (1.3-7.7); Neutrophils % (A) 69 %; Platelet Count 714 k/uL (150-450); RBC 3.37 m/uL (4.30-5.90); WBC 8.1 k/uL (3.8-10.6)
--- NOTE | 2024-07-30 07:22 | P.CON ---
Consult Note - . Consult date: 07/29/24 Assessment/Plan:: 63-year-old male who presents to the [facility] ED with right pubic swelling. He states that it has been going on for the past week. Denies any trauma. Did admit that he had an upper respiratory infection 1 week ago which passed. No recent surgeries. He states the pain has progressed. He attempted to follow-up with his primary care doctor however he could not get an appointment. He denies any fevers. No nausea or vomiting. States that his lower extremities have been swelling. No history of heart failure. No history of DVT or PE. Admits that it has been more difficult for him to urinate. No dysuria or hematuria. Denies any chronic medical conditions. Denies drug or daily alcohol use. Reports to drinking 2 beers last week but denies any injuries. Patient does not take any blood thinners. No other alleviating, precipitating modifying factors. He had a CT-AP which showed a massive retroperitoneal fluid collection on the right side which could represent a hematoma or abscess. Review of Systems ROS Statement: Those systems with pertinent positive or pertinent negative responses have been documented in the HPI. Past Medical History Past Medical History: No Reported History History of Any Multi-Drug Resistant Organisms: None Reported Past Surgical History: Orthopedic Surgery Past Psychological History: No Psychological Hx Reported Smoking Status: Current every day smoker Past Alcohol Use History: Occasional Past Drug Use History: None Reported General Exam Limitations: no limitations General appearance: alert, in no apparent distress Head exam: Present: atraumatic, normocephalic, normal inspection Eye exam: Present: normal appearance, PERRL, EOMI. Absent: scleral icterus, conjunctival injection, periorbital swelling ENT exam: Present: normal exam, mucous membranes moist Neck exam: Present: normal inspection. Absent: tenderness, meningismus, lymphadenopathy Respiratory exam: Present: normal lung sounds bilaterally. Absent: respiratory distress, wheezes, rales, rhonchi, stridor Cardiovascular Exam: Present: regular rate, normal rhythm, normal heart sounds. Absent: systolic murmur, diastolic murmur, rubs, gallop, clicks GI/Abdominal exam: Present: soft, normal bowel sounds. Absent: distended, tenderness, guarding, rebound, rigid Extremities exam: Present: normal inspection, full ROM, normal capillary refill. Absent: tenderness, pedal edema, joint swelling, calf tenderness Back exam: Present: normal inspection Neurological exam: Present: alert, oriented X3, CN II-XII intact Psychiatric exam: Present: normal affect, normal mood Skin exam: Present: warm, dry, intact, normal color. Absent: rash 63 year old male with complex retroperitoneal right sided fluid collection possibly representing a hematoma or abscess. -Recommend IR consult for drainage of collection -Recommend H/H q 8 hrs -Recommend Urology consult -Zosyn -Pain control -No acute surgical intervention. Further recs pending patients clinical course Herman Dumont DO [facility] [phone]
--- NOTE | 2024-07-30 07:23 | P.PN ---
Progress Note - Text Progress Note Date: 07/30/24 No acute events overnight. Vital Signs Stable. Pain is controlled. Physical Exam General-NAD CVS-RRR Lungs-NLB Abdomen-soft, NTND, no guarding, no rigidity 63 year old male with complex retroperitoneal right sided fluid collection possibly representing a hematoma or abscess. -Recommend IR consult for drainage of collection -Recommend H/H q 8 hrs -Ok for Regular Diet -Recommend Urology consult -Zosyn -Pain control -No acute surgical intervention. Further recs pending patients clinical course Herman Dumont DO [facility] [phone]
[2024-07-30 12:57] LABS: Basophils # (A) 0.08 X 10*3/uL (0.00-0.10); Eosinophils # (A) 0.16 X 10*3/uL (0.04-0.35); HCT 34.7 % (39.6-50.0); HGB 11.3 g/dL (13.0-17.0); Lymphocytes # (A) 1.68 X 10*3/uL (0.90-5.00); Lymphocytes % (A) 21.2 %; MCH 33.2 pg (27.0-32.0); MCHC 32.6 g/dL (32.0-37.0); MCV 102.1 FL (80.0-97.0); Mean Platelet Volume 9.2 FL (9.5-12.2); Monocytes # (A) 0.74 X 10*3/uL (0.20-1.00); Monocytes % (A) 9.3 %; NRBC Per 100 WBC 0 X 10*3/uL (0.00-0.01); Neutrophils # (A) 5.24 X 10*3/uL (1.80-7.70); Neutrophils % (A) 66.2 %; Platelet Count 724 X 10*3/uL (140-440); RDW 13.1 % (11.5-14.5); WBC 7.92 X 10*3/uL (4.50-10.00)
[2024-07-30 13:17] LABS: BUN/Creat Ratio 10.62 Ratio (12.00-20.00); Blood Urea Nitrogen 8.5 mg/dL (9.0-27.0); Chloride 104 mmol/L (96-109); Glucose 106 mg/dL (70-110); Potassium 3.9 mmol/L (3.5-5.5); Sodium 139 mmol/L (135-145)
[2024-07-30 13:18] LABS: Calcium 8.5 mg/dL (8.7-10.3); Carbon Dioxide 25.5 mmol/L (21.6-31.8)
--- NOTE | 2024-07-30 19:18 | P.HPIM ---
History of Present Illness This is a pleasant 63 years old male who presents with feeling a lump above his pubic symphysis area with little pain and bilateral leg swelling Patient fully awake oriented, denies overt abdominal pain vomiting or diarrhea. However he complains from mild pain about 2/10 in the right lower quadrant for about 1 week. Also has pain proximal to his right thigh. Denies urological symptoms like dysuria or urgency No chest pain or dyspnea. No headache dizziness weakness or numbness He smokes about 5 to 6 cigarettes/day and he was counseled to quit but he agrees. He declines nicotine patch. He denies alcohol or illicit drugs He states that his urine is little tight therefore we are going to check bladder scan Nicotine dependence Patient is afebrile Labs reviewed, no leukocytosis, hemoglobin 12.4 and 11.0 Platelet count 714 BMP, liver enzymes, INR and troponin x 1 were unremarkable Urinalysis is not significantly abnormal CT of the abdomen and pelvis showing massive retroperitoneal complex fluid collection on the right side extending into the presacral region and about 2 pubic symphysis, abscess versus chronic hematoma CTA of the chest is negative for PE D-dimer was elevated 1.76 Patient currently covered with [employer] Review of Systems Review of systems CONSTITUTIONAL: No fever, no malaise, no fatigue. HEENT: No recent visual problems or hearing problems. Denied any sore throat. CARDIOVASCULAR: No orthopnea, PND, no palpitations, no syncope. PULMONARY: No shortness of breath, no cough, no hemoptysis. GASTROINTESTINAL: No diarrhea, no nausea, no vomiting, no abdominal pain. N ormoactive bowel sounds. NEUROLOGICAL: No headaches, no weakness, no numbness. HEMATOLOGICAL: Denies any bleeding or petechiae. GENITOURINARY: Denies any burning micturition, frequency, or urgency. MUSCULOSKELETAL/RHEUMATOLOGICAL: Denies any joint pain, swelling, or any muscle pain. ENDOCRINE: Denies any polyuria or polydipsia. Past Medical History Past Medical History: No Reported History History of Any Multi-Drug Resistant Organisms: None Reported Past Surgical History: Orthopedic Surgery Past Psychological History: No Psychological Hx Reported Smoking Status: Current every day smoker Past Alcohol Use History: Rare Past Drug Use History: None Reported Medications and Allergies Home Medications Medication Instructions Recorded Confirmed Type No Known Home Medications 07/29/24 07/29/24 History Allergies Allergy/AdvReac Type Severity Reaction Status Date / Time No Known Allergies Allergy Verified 07/29/24 17:35 Physical Exam Vitals: Vital Signs Temp Pulse Pulse Resp BP BP Pulse Ox 07/30/24 06:54 98.4 F 68 18 125/67 97 07/30/24 02:00 98.1 F 86 13 123/75 96 07/29/24 21:51 98.1 F 95 16 107/66 95 07/29/24 20:27 98.7 F 81 19 128/78 96 07/29/24 17:52 98.8 F 87 20 118/74 97 07/29/24 12:54 98.2 F 84 19 119/74 98 Intake and Output 07/29/24 07/30/24 07/30/24 22:59 06:59 14:59 Other: Voiding Method Toilet Toilet Weight 72.575 kg GENERAL: The patient is alert and oriented x3, not in any acute distress. Well developed, well nourished. HEENT: Pupils are round and equally reacting to light. EOMI. No scleral icterus. No conjunctival pallor. Normocephalic, atraumatic. No pharyngeal erythema. No thyromegaly. CARDIOVASCULAR: S1 and S2 present. No murmurs, rubs, or gallops. PULMONARY: Chest is clear to auscultation, no wheezing , no crackles. -ABDOMEN: Soft, nontender, nondistended, normoactive bowel sounds. No palpable organomegaly. Mild fullness in the suprapubic area, on the right side, nontender, not red MUSCULOSKELETAL: No joint swelling or deformity. EXTREMITIES: No cyanosis, clubbing, or pedal edema. NEUROLOGICAL: Gross neurological examination did not reveal any focal deficits. SKIN: No rashes. no petechiae. Results CBC & Chem 7: 07/30/24 07:47 07/30/24 07:47 Labs: Abnormal Lab Results - Last 24 Hours (Table) 07/29/24 07/29/24 07/29/24 Range/Units 13:08 13:08 13:08 RBC 3.80 L (4.30-5.90) m/uL Hgb 12.4 L (13.0-17.5) gm/dL Hct 38.8 L (39.0-53.0) % MCV 102.2 H (80.0-100.0) fL Plt Count 863 H (150-450) k/uL D-Dimer 1.76 H (<0.60) mg/L FEU BUN 6 L (9-20) mg/dL Albumin 3.2 L (3.5-5.0) g/dL Ur Specific [place] (1.001-1.035) 07/29/24 07/30/24 Range/Units 16:19 02:34 RBC 3.37 L (4.30-5.90) m/uL Hgb 11.0 L (13.0-17.5) gm/dL Hct 34.2 L (39.0-53.0) % MCV 101.4 H (80.0-100.0) fL Plt Count 714 H (150-450) k/uL D-Dimer (<0.60) mg/L FEU BUN (9-20) mg/dL Albumin (3.5-5.0) g/dL Ur Specific [place] >1.050 H (1.001-1.035) Thrombosis Risk Factor Assmnt - Choose All That Apply Each Risk Factor Represents 2 Points: Age 61-74 years Thrombosis Risk Factor Assessment Total Risk Factor Score: 2 Thrombosis Risk Factor Assessment Level: Low Risk Assessment and Plan Assessment: Right retroperitoneal complex fluid collection, differential diagnosis including abscess versus hematoma. Rule out neurological causes Elevated D-dimer with negative CT of the chest for PE Mild bilateral feet and leg swelling. With mild right thigh pain Mild anemia Nicotine dependence Plan: Patient was started on Zosyn in the emergency room Follow-up culture results General Surgery on the case for recommended IR consult which is pending as it is weekend Urology team consulted per recommendation of surgery team Will check urine analysis and bladder scan Labs and medication were reviewed.. Continue same treatment. Continue with symptomatic treatment. Resume home medication. Monitor labs and vitals. DVT and GI prophylaxis. Further recommendations as per clinical course of the patient DVT prophylaxis: no Subcutaneous heparin, in view of possible hematoma of the retroperitoneal region GI Prophylaxis: Pepcid Prognosis is guarded
--- NOTE | 2024-07-30 20:08 | US ---
EXAMINATION TYPE: US venous doppler duplex LE BI DATE OF EXAM: 07/30/2024 7:57 PM COMPARISON: NONE CLINICAL INDICATION: Male, 63 years old with history of leg swelling; Patient states upper thigh pain ; otherwise no relevant signs, symptoms, or history, TECHNIQUE: The lower extremity deep venous system is examined utilizing real time linear array sonog sally with graded compression, color doppler sonography, and spectral doppler. SIDE PERFORMED: Bilateral FINDINGS: VESSELS IMAGED: Common Femoral Vein Deep Femoral Vein Greater Saphenous Vein Femoral Vein Popliteal Vein Small Saphenous Vein Proximal Calf Veins Right Leg: Negative for DVT, Color Doppler imaging shows patency of the vessels. Spectral waveforms are within normal limits. Left Leg: Negative for DVT, Color Doppler imaging shows patency of the vessels. Spectral waveforms a re within normal limits. IMPRESSION: No ultrasound evidence for deep venous thrombosis. [facility], , 07/30/2024 8:06 PM
[2024-07-30] MEDS: FAMOTIDINE 20 MG/2 ML VIAL IV SCH (20:53)
[2024-07-31 09:25] LABS: Basophils # (A) 0.07 X 10*3/uL (0.00-0.10); Eosinophils # (A) 0.13 X 10*3/uL (0.04-0.35); Eosinophils % (A) 1.8 %; HCT 34.7 % (39.6-50.0); HGB 11.2 g/dL (13.0-17.0); Lymphocytes # (A) 1.72 X 10*3/uL (0.90-5.00); MCH 32.7 pg (27.0-32.0); MCHC 32.3 g/dL (32.0-37.0); MCV 101.2 FL (80.0-97.0); Mean Platelet Volume 9.2 FL (9.5-12.2); Monocytes # (A) 0.71 X 10*3/uL (0.20-1.00); Monocytes % (A) 9.9 %; NRBC Per 100 WBC 0 X 10*3/uL (0.00-0.01); Neutrophils # (A) 4.52 X 10*3/uL (1.80-7.70); Neutrophils % (A) 63.2 %; Platelet Count 693 X 10*3/uL (140-440); RBC 3.43 X 10*6/uL (4.40-5.60); WBC 7.16 X 10*3/uL (4.50-10.00)
[2024-07-31 10:34] LABS: BUN/Creat Ratio 7.75 Ratio (12.00-20.00); Blood Urea Nitrogen 6.2 mg/dL (9.0-27.0); Calcium 8.7 mg/dL (8.7-10.3); Carbon Dioxide 26.4 mmol/L (21.6-31.8); Chloride 105 mmol/L (96-109); Glucose 110 mg/dL (70-110); Potassium 4.2 mmol/L (3.5-5.5); Sodium 140 mmol/L (135-145)
--- NOTE | 2024-07-31 11:09 | P.PN ---
Progress Note - Text Progress Note Date: 07/31/24 No acute events overnight. Vital Signs Stable. Pain is controlled. Physical Exam General-NAD CVS-RRR Lungs-NLB Abdomen-soft, NTND, no guarding, no rigidity 63 year old male with complex retroperitoneal right sided fluid collection possibly representing a hematoma or abscess. -Recommend IR consult for drainage of collection -monitor Hgb -Regular Diet -Urology recs -Zosyn -Pain control -No acute surgical intervention. Further recs pending patients clinical course Herman Dumont DO [facility] [phone]
--- NOTE | 2024-07-31 11:45 | P.GSCN ---
History of Present Illness Consult date: 07/31/24 Reason for Consult: Retroperitoneal fluid collection History of present illness: 63-year-old male presented to the hospital with right groin pain and right lower quadrant abdominal pain. Underwent a CT abdomen and pelvis that showed a large right-sided retroperitoneal fluid collection that extends from the retroperitoneum and into the presacral space and around the pubic symphysis. He denies any history of trauma, falls. No recent abdominal or retroperitoneal surgeries. Pain has been ongoing for 1 week. No previous history of kidney stones or any urological surgeries. Denies any voiding symptoms, denies any gross hematuria or dysuria or difficulty voiding. no previous known history of malignancies. His hemoglobin has been stable since admission, Review of Systems - Constitutional Denies fever, Denies weight loss - EENT Ears, nose, mouth and throat: Denies dysphagia - Cardiovascular Denies chest pain, Denies shortness of breath - Gastrointestinal Reports abdominal pain, Denies nausea, Denies vomiting - Genitourinary Reports flank pain, Denies testicular pain - Integumentary Denies rash, Denies unusual bruising - Neurological Denies headaches, Denies syncope Past Medical History Past Medical History: No Reported History History of Any Multi-Drug Resistant Organisms: None Reported Past Surgical History: Orthopedic Surgery Past Psychological History: No Psychological Hx Reported Smoking Status: Current every day smoker Past Alcohol Use History: Rare Past Drug Use History: None Reported Medications and Allergies Home Medications Medication Instructions Recorded Confirmed Type No Known Home Medications 07/29/24 07/29/24 History Allergies Allergy/AdvReac Type Severity Reaction Status Date / Time No Known Allergies Allergy Verified 07/29/24 17:35 Surgical - Exam Vital Signs Temp Pulse Resp BP Pulse Ox 98.2 F 84 19 119/74 98 07/29/24 12:54 07/29/24 12:54 07/29/24 12:54 07/29/24 12:54 07/29/24 12:54 - General no distress, no pain - Eyes normal ocular movement, no pale - ENT normal nares, normal mucosa - Respiratory normal expansion, normal respiratory effort - Abdomen Right indurated area along the right of the pubic symphysis and right groin Abdomen: soft, non tender - Genitourinary normal penis with no external lesions, testicles present - Psychiatric oriented to time, oriented to person, oriented to place Results - Labs 07/31/24 06:48 07/31/24 06:48 Abnormal Lab Results - Last 24 Hours (Table) 07/30/24 07/30/24 07/31/24 Range/Units 07:47 07:47 06:48 RBC 3.40 L 3.43 L (4.40-5.60) X 10*6/uL Hgb 11.3 L 11.2 L (13.0-17.0) g/dL Hct 34.7 L 34.7 L (39.6-50.0) % MCV 102.1 H 101.2 H (80.0-97.0) FL MCH 33.2 H 32.7 H (27.0-32.0) pg Plt Count 724 H 693 H (140-440) X 10*3/uL MPV 9.2 L 9.2 L (9.5-12.2) FL BUN 8.5 L (9.0-27.0) mg/dL BUN/Creatinine Ratio 10.62 L (12.00-20.00) Ratio Calcium 8.5 L (8.7-10.3) mg/dL C-Reactive Protein (0.00-0.80) mg/dL 07/31/24 Range/Units 06:48 RBC (4.40-5.60) X 10*6/uL Hgb (13.0-17.0) g/dL Hct (39.6-50.0) % MCV (80.0-97.0) FL MCH (27.0-32.0) pg Plt Count (140-440) X 10*3/uL MPV (9.5-12.2) FL BUN 6.2 L (9.0-27.0) mg/dL BUN/Creatinine Ratio 7.75 L (12.00-20.00) Ratio Calcium (8.7-10.3) mg/dL C-Reactive Protein 1.20 H (0.00-0.80) mg/dL Microbiology - Last 24 Hours (Table) 07/29/24 18:19 Blood Culture - Preliminary Blood Diabetes panel 07/30/24 07/31/24 Range/Units 07:47 06:48 Sodium 139 140 (135-145) mmol/L Potassium 3.9 4.2 (3.5-5.5) mmol/L Chloride 104 105 (96-109) mmol/L Carbon Dioxide 25.5 26.4 (21.6-31.8) mmol/L BUN 8.5 L 6.2 L (9.0-27.0) mg/dL Creatinine 0.8 0.8 (0.6-1.5) mg/dL Glucose 106 110 (70-110) mg/dL Calcium 8.5 L 8.7 (8.7-10.3) mg/dL Calcium panel 07/30/24 07/31/24 Range/Units 07:47 06:48 Calcium 8.5 L 8.7 (8.7-10.3) mg/dL Pituitary panel 07/30/24 07/31/24 Range/Units 07:47 06:48 Sodium 139 140 (135-145) mmol/L Potassium 3.9 4.2 (3.5-5.5) mmol/L Chloride 104 105 (96-109) mmol/L Carbon Dioxide 25.5 26.4 (21.6-31.8) mmol/L BUN 8.5 L 6.2 L (9.0-27.0) mg/dL Creatinine 0.8 0.8 (0.6-1.5) mg/dL Glucose 106 110 (70-110) mg/dL Calcium 8.5 L 8.7 (8.7-10.3) mg/dL Adrenal panel 07/30/24 07/31/24 Range/Units 07:47 06:48 Sodium 139 140 (135-145) mmol/L Potassium 3.9 4.2 (3.5-5.5) mmol/L Chloride 104 105 (96-109) mmol/L Carbon Dioxide 25.5 26.4 (21.6-31.8) mmol/L BUN 8.5 L 6.2 L (9.0-27.0) mg/dL Creatinine 0.8 0.8 (0.6-1.5) mg/dL Glucose 106 110 (70-110) mg/dL Calcium 8.5 L 8.7 (8.7-10.3) mg/dL Assessment and Plan Assessment: 63-year-old male with a large right sided retroperitoneal fluid collection, of unknown etiology. I reviewed his CT scans this appears to be independent of the kidney, also there is a 3-minute delayed images that showed no evidence of contrast extravasation though this is not a urine leak. Bladder on CT is within normal limits, there is no hematuria this does not represent a urine leak either. this is unlikely to be urological origin. Given the lack of leukocytosis, fever is highly unlikely this is an abscess. -From Urology standpoint no further intervention, I do recommend a repeat CT in 6 weeks to assess for progression versus resolution, -follow-up on general surgery Recs
--- NOTE | 2024-07-31 18:34 | P.PN ---
Subjective This is a pleasant 63 years old male who presents with feeling a lump above his pubic symphysis area with little pain and bilateral leg swelling Patient fully awake oriented, denies overt abdominal pain vomiting or diarrhea. However he complains from mild pain about 2/10 in the right lower quadrant for about 1 week. Also has pain proximal to his right thigh. Denies urological symptoms like dysuria or urgency No chest pain or dyspnea. No headache dizziness weakness or numbness He smokes about 5 to 6 cigarettes/day and he was counseled to quit but he agrees. He declines nicotine patch. He denies alcohol or illicit drugs He states that his urine is little tight therefore we are going to check bladder scan Nicotine dependence Patient is afebrile Labs reviewed, no leukocytosis, hemoglobin 12.4 and 11.0 Platelet count 714 BMP, liver enzymes, INR and troponin x 1 were unremarkable Urinalysis is not significantly abnormal CT of the abdomen and pelvis showing massive retroperitoneal complex fluid collection on the right side extending into the presacral region and about 2 pubic symphysis, abscess versus chronic hematoma CTA of the chest is negative for PE D-dimer was elevated 1.76 Patient currently covered with Zosyn 07/31 Patient clinically the same, with some suprapubic fullness and mild pain He has no fever, no leukocytosis He remains on Zosyn for his complex retroperitoneal cyst collection Plan for IR consult tomorrow/Thursday as there is no IR team on weekends Surgery team following closely Urologist also evaluated the patient today and he does not feel it is related to his renal system besides his UA and bladder scan were unremarkable Objective - Vital Signs Vital signs: Vital Signs Temp 98.0 F 07/31/24 07:03 Pulse 83 07/31/24 07:03 Resp 18 07/31/24 07:03 BP 117/67 07/31/24 07:03 Pulse Ox 94 L 07/31/24 07:03 FiO2 Intake & Output 07/30/24 07/31/24 07/31/24 18:59 06:59 18:59 Intake Total 680 Balance 680 Intake: Intake, IV Titration 100 Amount Piperacillin-Tazobactam 3 100 .375 gm In Sodium Chloride 0.9% 100 ml @ 25 mls/hr IVPB Q8HR [facility] Rx# :[id number] Oral 580 Other: Voiding Method Toilet Toilet Toilet # Voids 3 3 # Bowel Movements 3 - Exam GENERAL: The patient is alert and oriented x3, not in any acute distress. Well developed, well nourished. HEENT: Pupils are round and equally reacting to light. EOMI. No scleral icterus. No conjunctival pallor. Normocephalic, atraumatic. No pharyngeal erythema. No thyromegaly. CARDIOVASCULAR: S1 and S2 present. No murmurs, rubs, or gallops. PULMONARY: Chest is clear to auscultation, no wheezing , no crackles. -ABDOMEN: Soft, nontender, nondistended, normoactive bowel sounds. No palpable organomegaly. Fullness in the suprapubic area from fluid collection MUSCULOSKELETAL: No joint swelling or deformity. EXTREMITIES: No cyanosis, clubbing, or pedal edema. NEUROLOGICAL: Gross neurological examination did not reveal any focal deficits. SKIN: No rashes. no petechiae. - Labs CBC & Chem 7: 07/31/24 06:48 07/31/24 06:48 Labs: Abnormal Lab Results - Last 24 Hours (Table) 07/31/24 07/31/24 Range/Units 06:48 06:48 RBC 3.43 L (4.40-5.60) X 10*6/uL Hgb 11.2 L (13.0-17.0) g/dL Hct 34.7 L (39.6-50.0) % MCV 101.2 H (80.0-97.0) FL MCH 32.7 H (27.0-32.0) pg Plt Count 693 H (140-440) X 10*3/uL MPV 9.2 L (9.5-12.2) FL BUN 6.2 L (9.0-27.0) mg/dL BUN/Creatinine Ratio 7.75 L (12.00-20.00) Ratio C-Reactive Protein 1.20 H (0.00-0.80) mg/dL Microbiology - Last 24 Hours (Table) 07/29/24 18:19 Blood Culture - Preliminary Blood Assessment and Plan Assessment: Right retroperitoneal complex fluid collection, differential diagnosis including abscess versus hematoma. Rule out neurological causes Elevated D-dimer with negative CT of the chest for PE Mild bilateral feet and leg swelling. With mild right thigh pain Mild anemia Nicotine dependence Plan: Patient was started on Zosyn in the emergency room Follow-up culture results General Surgery on the case for recommended IR consult which is pending Urology team consulted: Unlikely to be of urological source, recommend to repeat CAT scan in 6 weeks urine analysis and bladder scan: Reviewed and they were unremarkable Labs and medication were reviewed.. Continue same treatment. Continue with symptomatic treatment. Resume home medication. Monitor labs and vitals. DVT and GI prophylaxis. Further recommendations as per clinical course of the patient DVT prophylaxis: no Subcutaneous heparin, in view of possible hematoma of the retroperitoneal region GI Prophylaxis: Pepcid Prognosis is guarded
[2024-08-01 09:09] LABS: Basophils # (A) 0.08 X 10*3/uL (0.00-0.10); Basophils % (A) 1.1 %; Eosinophils # (A) 0.19 X 10*3/uL (0.04-0.35); Eosinophils % (A) 2.5 %; HCT 33.5 % (39.6-50.0); Lymphocytes # (A) 2.09 X 10*3/uL (0.90-5.00); Lymphocytes % (A) 27.5 %; MCH 33.2 pg (27.0-32.0); MCHC 32.8 g/dL (32.0-37.0); MCV 101.2 FL (80.0-97.0); Mean Platelet Volume 9.1 FL (9.5-12.2); Monocytes # (A) 0.74 X 10*3/uL (0.20-1.00); Monocytes % (A) 9.7 %; NRBC Per 100 WBC 0 X 10*3/uL (0.00-0.01); Neutrophils # (A) 4.46 X 10*3/uL (1.80-7.70); Neutrophils % (A) 58.7 %; Platelet Count 659 X 10*3/uL (140-440); RBC 3.31 X 10*6/uL (4.40-5.60); RDW 13.1 % (11.5-14.5)
--- NOTE | 2024-08-01 09:20 | P.PN ---
Subjective Progress Note Date: 08/01/24 The patient is in the hospital with abdominal pain. He was identified to have a retroperitoneal fluid collection on the right side on computed tomography scan. He was seen by from our service yesterday. There did not appear to be any connection with the kidney or bladder. He is afebrile. His pain is minimal. His white count was normal. His urine is clear. Objective - Vital Signs Vital signs: Vital Signs Temp 97.9 F 08/01/24 07:20 Pulse 71 08/01/24 07:20 Resp 16 08/01/24 07:20 BP 130/82 08/01/24 07:20 Pulse Ox 95 08/01/24 07:20 FiO2 Intake & Output 07/31/24 08/01/24 08/01/24 18:59 06:59 18:59 Output Total 5 Balance -5 Output: Urine 5 Other: Voiding Method Toilet Toilet # Bowel Movements 3 - Labs CBC & Chem 7: 08/01/24 02:59 07/31/24 06:48 Labs: Abnormal Lab Results - Last 24 Hours (Table) 07/31/24 07/31/24 08/01/24 Range/Units 06:48 06:48 02:59 RBC 3.43 L 3.31 L (4.40-5.60) X 10*6/uL Hgb 11.2 L 11.0 L (13.0-17.0) g/dL Hct 34.7 L 33.5 L (39.6-50.0) % MCV 101.2 H 101.2 H (80.0-97.0) FL MCH 32.7 H 33.2 H (27.0-32.0) pg Plt Count 693 H 659 H (140-440) X 10*3/uL MPV 9.2 L 9.1 L (9.5-12.2) FL BUN 6.2 L (9.0-27.0) mg/dL BUN/Creatinine Ratio 7.75 L (12.00-20.00) Ratio C-Reactive Protein 1.20 H (0.00-0.80) mg/dL Microbiology - Last 24 Hours (Table) 07/29/24 18:19 Blood Culture - Preliminary Blood Assessment and Plan Assessment: Impression: Retroperitoneal fluid collection indeterminate etiology. Recommendations: I concur with recommendation. Since he is asymptomatic, afebrile, normal white count intervention may lead to infection or more surgeries. I suspect this is related to minor trauma. From a urologic standpoint would recommend a follow-up computed tomography scan in about 6 weeks.
[2024-08-01 09:25] LABS: BUN/Creat Ratio 8.67 Ratio (12.00-20.00); Blood Urea Nitrogen 7.8 mg/dL (9.0-27.0); Calcium 8.6 mg/dL (8.7-10.3); Carbon Dioxide 27.1 mmol/L (21.6-31.8); Chloride 105 mmol/L (96-109); Glucose 120 mg/dL (70-110); Potassium 4.4 mmol/L (3.5-5.5); Sodium 141 mmol/L (135-145)
--- NOTE | 2024-08-01 11:22 | P.PN ---
Subjective Progress Note Date: 08/01/24 SURGICAL PROGRESS NOTE CHIEF COMPLAINT: Retroperitoneal right-sided fluid collection HISTORY OF PRESENT ILLNESS: Patient continues to have pain and swelling in the right lower groin/suprapubic area. Patient reports having this pain and swelling for about 1 week. No drainage. Denies any nausea or vomiting. He reports having bowel movements. Denies any difficulty urinating. Afebrile. WBC 7.16 Hgb 11.2. PHYSICAL EXAM: VITAL SIGNS: Reviewed. GENERAL: Well-developed in no acute distress. HEENT: No sclera icterus. Extraocular movements grossly intact. Moist buccal mucosa. Head is atraumatic, normocephalic. ABDOMEN: Soft. Nondistended. Patient was swelling and tenderness noted suprapubic right groin area. No erythema. No drainage. NEUROLOGIC: Alert and oriented. Cranial nerves II through XII grossly intact. ASSESSMENT: 1. 63 year old male with complex retroperitoneal right sided fluid collection possibly representing a hematoma or abscess. PLAN: -Possible IR drain placement today. Awaiting IR recommendations -Continue antibiotics -Continue pain management -Continue regular diet -Continue monitor hemoglobin -No surgical intervention planned Physician [employer] Process Hand note has been reviewed by physician. Signing provider agrees with the documented findings, assessment, and plan of care. Objective - Vital Signs Vital signs: Vital Signs Temp 97.9 F 08/01/24 07:20 Pulse 71 08/01/24 07:20 Resp 16 08/01/24 07:20 BP 130/82 08/01/24 07:20 Pulse Ox 95 08/01/24 07:20 FiO2 Intake & Output 07/31/24 08/01/24 08/01/24 18:59 06:59 18:59 Output Total 5 Balance -5 Output: Urine 5 Other: Voiding Method Toilet Toilet # Bowel Movements 3 - Labs CBC & Chem 7: 08/01/24 02:59 08/01/24 02:59 Labs: Abnormal Lab Results - Last 24 Hours (Table) 08/01/24 08/01/24 Range/Units 02:59 02:59 RBC 3.31 L (4.40-5.60) X 10*6/uL Hgb 11.0 L (13.0-17.0) g/dL Hct 33.5 L (39.6-50.0) % MCV 101.2 H (80.0-97.0) FL MCH 33.2 H (27.0-32.0) pg Plt Count 659 H (140-440) X 10*3/uL MPV 9.1 L (9.5-12.2) FL BUN 7.8 L (9.0-27.0) mg/dL BUN/Creatinine Ratio 8.67 L (12.00-20.00) Ratio Glucose 120 H (70-110) mg/dL Calcium 8.6 L (8.7-10.3) mg/dL Microbiology - Last 24 Hours (Table) 07/29/24 18:19 Blood Culture - Preliminary Blood
[2024-08-01] MEDS ORDERED: MORPHINE SULFATE 2 MG/ML SYRINGE IVP PRN (12:22)
[2024-08-01] MEDS: MORPHINE SULFATE 2 MG/ML SYRINGE IVP STA (12:31)
--- NOTE | 2024-08-01 14:06 | CT ---
EXAMINATION TYPE: CT guided abscess drainage DATE OF EXAM: 08/01/2024 COMPARISON: 07/29/2024 CLINICAL INDICATION: Male, 63 years old with history of right retroperitoneal fluid collection; RT re troperitoneal fluid collection. CT DLP: 1069 mGycm The procedure is discussed with the patient, the risks, complications, benefits and alternatives, wer e discussed and any questions were answered. Informed consent was obtained. The patient is placed l ateral on the CT table, prepped and draped in the usual sterile fashion. Utilizing a 18-gauge needle access into a right abdominal fluid collection achieved with passage of a n 0.018 wire. Serial dilation to 8 [place] and placement of an 8.5 [place] drainage catheter. Small myriam ple of serous fluid was sent to pathology for analysis. Pathology pending. All elements of maximal barrier and sterile technique were utilized. The patient remained stable throughout the procedure wi th no immediate postprocedural complication. IMPRESSION: 1. Successful CT guided abdominal\retroperitoneal fluid collection drainage catheter insertion. [facility], , 08/01/2024 2:04 PM
--- NOTE | 2024-08-01 20:52 | P.PN ---
Subjective This is a pleasant 63 years old male who presents with feeling a lump above his pubic symphysis area with little pain and bilateral leg swelling Patient fully awake oriented, denies overt abdominal pain vomiting or diarrhea. However he complains from mild pain about 2/10 in the right lower quadrant for about 1 week. Also has pain proximal to his right thigh. Denies urological symptoms like dysuria or urgency No chest pain or dyspnea. No headache dizziness weakness or numbness He smokes about 5 to 6 cigarettes/day and he was counseled to quit but he agrees. He declines nicotine patch. He denies alcohol or illicit drugs He states that his urine is little tight therefore we are going to check bladder scan Nicotine dependence Patient is afebrile Labs reviewed, no leukocytosis, hemoglobin 12.4 and 11.0 Platelet count 714 BMP, liver enzymes, INR and troponin x 1 were unremarkable Urinalysis is not significantly abnormal CT of the abdomen and pelvis showing massive retroperitoneal complex fluid collection on the right side extending into the presacral region and about 2 pubic symphysis, abscess versus chronic hematoma CTA of the chest is negative for PE D-dimer was elevated 1.76 Patient currently covered with Zosyn 07/31 Patient clinically the same, with some suprapubic fullness and mild pain He has no fever, no leukocytosis He remains on Zosyn for his complex retroperitoneal cyst collection Plan for IR consult tomorrow/Thursday as there is no IR team on s Surgery team following closely Urologist also evaluated the patient today and he does not feel it is related to his renal system besides his UA and bladder scan were unremarkable 08/01 Patient s/p catheter drainage of his retroperitoneal fluid collection with IR team A small sample of serous fluid obtained and sent for pathology, No suspicion of hematoma now is low Patient remains on Zosyn. Urology team following, general surgery team following Objective - Vital Signs Vital signs: Vital Signs Temp 97.9 F 08/01/24 07:20 Pulse 78 08/01/24 12:38 Resp 12 08/01/24 12:38 BP 145/96 08/01/24 12:38 Pulse Ox 98 08/01/24 12:38 FiO2 Intake & Output 07/31/24 08/01/24 08/01/24 18:59 06:59 18:59 Output Total 5 1400 Balance -5 -1400 Output: Drainage 1400 Right lower back 1400 Urine 5 Other: Voiding Method Toilet Toilet # Bowel Movements 3 - Exam GENERAL: The patient is alert and oriented x3, not in any acute distress. Well developed, well nourished. HEENT: Pupils are round and equally reacting to light. EOMI. No scleral icterus. No conjunctival pallor. Normocephalic, atraumatic. No pharyngeal erythema. No thyromegaly. CARDIOVASCULAR: S1 and S2 present. No murmurs, rubs, or gallops. PULMONARY: Chest is clear to auscultation, no wheezing , no crackles. -ABDOMEN: Soft, nontender, nondistended, normoactive bowel sounds. No palpable organomegaly. Fullness in the suprapubic area from fluid collection MUSCULOSKELETAL: No joint swelling or deformity. EXTREMITIES: No cyanosis, clubbing, or pedal edema. NEUROLOGICAL: Gross neurological examination did not reveal any focal deficits. SKIN: No rashes. no petechiae. - Labs CBC & Chem 7: 08/01/24 02:59 08/01/24 02:59 Labs: Abnormal Lab Results - Last 24 Hours (Table) 08/01/24 08/01/24 Range/Units 02:59 02:59 RBC 3.31 L (4.40-5.60) X 10*6/uL Hgb 11.0 L (13.0-17.0) g/dL Hct 33.5 L (39.6-50.0) % MCV 101.2 H (80.0-97.0) FL MCH 33.2 H (27.0-32.0) pg Plt Count 659 H (140-440) X 10*3/uL MPV 9.1 L (9.5-12.2) FL BUN 7.8 L (9.0-27.0) mg/dL BUN/Creatinine Ratio 8.67 L (12.00-20.00) Ratio Glucose 120 H (70-110) mg/dL Calcium 8.6 L (8.7-10.3) mg/dL Microbiology - Last 24 Hours (Table) 07/29/24 18:19 Blood Culture - Preliminary Blood Assessment and Plan Assessment: Right retroperitoneal complex fluid collection, differential diagnosis including abscess versus hematoma neurological causes unlikely by urologist. Status post catheter drainage by IR on 08/01, small sample of serous fluid sent to pathology which is pending Elevated D-dimer with negative CT of the chest for PE Mild bilateral feet and leg swelling. With mild right thigh pain Mild anemia Nicotine dependence Plan: Patient was started on Zosyn in the emergency room Follow-up culture results Follow-up pathology result Mild morphine for pain control General Surgery on the case for recommended IR consult which is pending Urology team consulted: Unlikely to be of urological source, recommend to repeat CAT scan in 6 weeks urine analysis and bladder scan: Reviewed and they were unremarkable Labs and medication were reviewed.. Continue same treatment. Continue with symptomatic treatment. Resume home medication. Monitor labs and vitals. DVT and GI prophylaxis. Further recommendations as per clinical course of the patient DVT prophylaxis: Patient is low risk and he is mobile, we will request physical therapy evaluation GI Prophylaxis: Pepcid Prognosis is guarded
[2024-08-02 08:27] LABS: Basophils # (A) 0.08 X 10*3/uL (0.00-0.10); Eosinophils # (A) 0.23 X 10*3/uL (0.04-0.35); HCT 33.5 % (39.6-50.0); HGB 10.8 g/dL (13.0-17.0); Lymphocytes % (A) 31.3 %; MCH 32.8 pg (27.0-32.0); MCHC 32.2 g/dL (32.0-37.0); MCV 101.8 FL (80.0-97.0); Mean Platelet Volume 9.5 FL (9.5-12.2); Monocytes # (A) 0.84 X 10*3/uL (0.20-1.00); Monocytes % (A) 10.9 %; NRBC Per 100 WBC 0 X 10*3/uL (0.00-0.01); Neutrophils % (A) 53.4 %; Platelet Count 617 X 10*3/uL (140-440); RBC 3.29 X 10*6/uL (4.40-5.60); RDW 13.1 % (11.5-14.5); WBC 7.68 X 10*3/uL (4.50-10.00)
--- NOTE | 2024-08-02 14:54 | P.PN ---
Subjective Progress Note Date: 08/02/24 SURGICAL PROGRESS NOTE CHIEF COMPLAINT: Retroperitoneal right-sided fluid collection HISTORY OF PRESENT ILLNESS: Patient is status post drain placement for the right sided retroperitoneal fluid collection. Patient had significant output from the drain 1.4 L initially and then 400 mL during the night and then 300 mL this morning. The fluid is very dark brown in color. Patient does report that the pain is improving. Afebrile. WBC 7.68 Hgb 10.8 PHYSICAL EXAM: VITAL SIGNS: Reviewed. GENERAL: Well-developed in no acute distress. HEENT: No sclera icterus. Extraocular movements grossly intact. Moist buccal mucosa. Head is atraumatic, normocephalic. ABDOMEN: Soft. Nondistended. Patient was swelling and tenderness noted suprapubic right groin area. No erythema. No drainage. NEUROLOGIC: Alert and oriented. Cranial nerves II through XII grossly intact. ASSESSMENT: 1. 63 year old male with complex retroperitoneal right sided fluid collection possibly representing a hematoma or abscess. Status post IR drain placement PLAN: -Continue to monitor drain output -Continue antibiotics -Continue pain management -Continue regular diet -Continue monitor hemoglobin -No surgical intervention planned Physician Nursing Officer note has been reviewed by physician. Signing provider agrees with the documented findings, assessment, and plan of care. Attestation Patient seen and examined at bedside. IR drain in place with continued brown output. States pain is improving. No leukocytosis. Awaiting cultures. Theodore Erazo DO Objective - Vital Signs Vital signs: Vital Signs Temp 97.8 F 08/02/24 07:17 Pulse 69 08/02/24 07:17 Resp 16 08/02/24 07:17 BP 118/75 08/02/24 07:17 Pulse Ox 93 L 08/02/24 07:17 FiO2 Intake & Output 08/01/24 08/02/24 08/02/24 18:59 06:59 18:59 Output Total 1800 300 Balance -1800 -300 Output: Drainage 1800 300 Right lower back 1800 300 Other: Voiding Method Toilet Toilet Toilet # Voids 5 2 # Bowel Movements 4 - Labs CBC & Chem 7: 08/02/24 03:04 08/01/24 02:59 Labs: Abnormal Lab Results - Last 24 Hours (Table) 08/02/24 Range/Units 03:04 RBC 3.29 L (4.40-5.60) X 10*6/uL Hgb 10.8 L (13.0-17.0) g/dL Hct 33.5 L (39.6-50.0) % MCV 101.8 H (80.0-97.0) FL MCH 32.8 H (27.0-32.0) pg Plt Count 617 H (140-440) X 10*3/uL Microbiology - Last 24 Hours (Table) 07/29/24 18:19 Blood Culture - Preliminary Blood
--- NOTE | 2024-08-02 14:56 | P.PN ---
Subjective Progress Note Date: 08/02/24 This is a pleasant 63 years old male who presents with feeling a lump above his pubic symphysis area with little pain and bilateral leg swelling Patient fully awake oriented, denies overt abdominal pain vomiting or diarrhea. However he complains from mild pain about 2/10 in the right lower quadrant for about 1 week. Also has pain proximal to his right thigh. Denies urological symptoms like dysuria or urgency No chest pain or dyspnea. No headache dizziness weakness or numbness He smokes about 5 to 6 cigarettes/day and he was counseled to quit but he agrees. He declines nicotine patch. He denies alcohol or illicit drugs He states that his urine is little tight therefore we are going to check bladder scan Nicotine dependence Patient is afebrile Labs reviewed, no leukocytosis, hemoglobin 12.4 and 11.0 Platelet count 714 BMP, liver enzymes, INR and troponin x 1 were unremarkable Urinalysis is not significantly abnormal CT of the abdomen and pelvis showing massive retroperitoneal complex fluid collection on the right side extending into the presacral region and about 2 pubic symphysis, abscess versus chronic hematoma CTA of the chest is negative for PE D-dimer was elevated 1.76 Patient currently covered with Zosyn 07/31 Patient clinically the same, with some suprapubic fullness and mild pain He has no fever, no leukocytosis He remains on Zosyn for his complex retroperitoneal cyst collection Plan for IR consult tomorrow/Thursday as there is no IR team on weekends Surgery team following closely Urologist also evaluated the patient today and he does not feel it is related to his renal system besides his UA and bladder scan were unremarkable 08/01 Patient s/p catheter drainage of his retroperitoneal fluid collection with IR team A small sample of serous fluid obtained and sent for pathology, No suspicion of hematoma now is low Patient remains on Zosyn. Urology team following, general surgery team following 08/02/2024 Patient is seen and evaluated in follow-up with interventional radiology, general surgery, and urology following. Patient is status post drainage of the retroperitoneal fluid collection with interventional radiology yesterday. Patient remains on IV antibiotics with urology and general surgery following. No plans for surgical intervention at this time. Preliminary cultures awaiting finalized cultures to determine discharge antibiotics. Will consult and appreciate input and recommendations from infectious disease. Patient continues with the drainage bag and will continue to monitor output. Patient is afebrile with no reports of chest pain or shortness of breath. Patient reports plans on going home on discharge. Case management is following in the event patient needs antibiotics on discharge. Hopeful for oral as patient has no insurance c urrently. Review of systems: Constitutional: No reports of fatigue, fever, or chills Cardiovascular: No reports of chest pain or palpitations Respiratory: No reports of shortness of breath or cough GI: No reports of nausea, vomiting, or diarrhea : No reports of dysuria or retention Neurovascular: reports of generalized weakness Physical exam: GENERAL: The patient is alert and oriented x3, not in any acute distress. Well developed, elderly appearing, thin built HEENT: Pupils are round and equally reacting to light. EOMI. No scleral icterus. No conjunctival pallor. Normocephalic, atraumatic. No pharyngeal erythema. No thyromegaly. CARDIOVASCULAR: S1 and S2 muffled PULMONARY: Diminished breath sounds bilaterally otherwise chest is clear to auscultation, no wheezing , no crackles. ABDOMEN: Soft, thin, nontender, nondistended, normoactive bowel sounds. No palpable organomegaly. Fullness in the suprapubic area has subsided, drainage catheter noted with serous fluid in the drainage bag MUSCULOSKELETAL: No joint swelling or deformity. EXTREMITIES: No cyanosis, clubbing, or pedal edema. NEUROLOGICAL: Gross neurological examination did not reveal any focal deficits. Diffuse weakness SKIN: No rashes. no petechiae. Assessment: Right retroperitoneal complex fluid collection, differential diagnosis including abscess versus hematoma neurological causes unlikely by urologist. Status post catheter drainage by IR on 08/01, small sample of serous fluid sent to pathology which is pending Elevated D-dimer with negative CT of the chest for PE Mild bilateral feet and leg swelling. With mild right thigh pain Mild anemia Continued ongoing nicotine dependence Noncompliance with outpatient follow-up, currently has no insurance GI prophylaxis DVT prophylaxis Full code Plan: Patient was started on Zosyn and is continued on this. Will consult infectious disease and appreciate input and recommendations Follow-up culture results, currently pending and blood cultures remain negative Follow-up pathology result Continue with other medications, recommend limiting narcotic use General Surgery on the case with no plans for surgical intervention. Interventional radiology was consulted and is status post drainage tube of this retroperitoneal mass Urology team following: Unlikely to be of urological source, recommend to repeat CAT scan in 6 weeks Awaiting finalized cultures to determine appropriate antibiotic coverage Overall prognosis is guarded at this time The impression and plan of care has been dictated by Shraddha Arguelles, Nurse Practitioner as directed. Dr. Rodrigue MD I have performed a history and examination and MDM of this patient, discussed the same with the dictator, and agree with the dictator's assessment and plan as written ,documented as a scribe. Based on total visit time, I have performed more than 50% of the visit. Objective - Vital Signs Vital signs: Vital Signs Temp 97.8 F 08/02/24 07:17 Pulse 69 08/02/24 07:17 Resp 16 08/02/24 07:17 BP 118/75 08/02/24 07:17 Pulse Ox 93 L 08/02/24 07:17 FiO2 Intake & Output 08/01/24 08/02/24 08/02/24 18:59 06:59 18:59 Output Total 1800 300 Balance -1800 -300 Output: Drainage 1800 300 Right lower back 1800 300 Other: Voiding Method Toilet Toilet Toilet # Voids 5 2 # Bowel Movements 4 - Labs CBC & Chem 7: 08/02/24 03:04 08/01/24 02:59 Labs: Abnormal Lab Results - Last 24 Hours (Table) 08/02/24 Range/Units 03:04 RBC 3.29 L (4.40-5.60) X 10*6/uL Hgb 10.8 L (13.0-17.0) g/dL Hct 33.5 L (39.6-50.0) % MCV 101.8 H (80.0-97.0) FL MCH 32.8 H (27.0-32.0) pg Plt Count 617 H (140-440) X 10*3/uL Microbiology - Last 24 Hours (Table) 07/29/24 18:19 Blood Culture - Preliminary Blood
--- NOTE | 2024-08-02 21:38 | P.CONS ---
History of Present Illness - Reason for Consult Consult date: 08/02/24 Right groin abscess Requesting physician: Shraddha Arguelles - Chief Complaint Suprapubic and abdominal swelling x days - History of Present Illness Patient is a 63-year-old male with no significant past medical history current everyday smoker presenting to the hospital about 4 days ago for evaluation of increasing swelling to the right pubic area that the pain has been going on for about a week and has been progressing getting worse patient denies any history of any trauma denies having any fever or any chills no headache or URI symptoms no chest pain shortness of breath or cough no abdominal pain he did have some difficulty urination when he did have the swelling but no significant burning patient on presentation to the hospital was afebrile and no fever have been recorded during this hospital stay patient was not tachycardic hypotensive or hypoxic he did have normal white count of 7.68 hemoglobin slightly low side creatinine 0.9 CRP 1.20 patient did have a abdominal pelvis CT we did shows massive retroperitoneal complex fluid collection on the right and extending into the presacral region and anterior to the pubic symphysis findings suggestive p ossible abscess chronic hematoma patient did have CT-guided drainage of this abscess yesterday afternoon with drainage of mostly serous fluid which has been sent for the culture patient has been empirically treated with Zosyn infectious disease was consulted today for further management of antibiotic therapy Review of Systems Positive point and negatives has been mentioned in the HPI, complete review of systems was performed and all other systems are negative Past Medical History Past Medical History: No Reported History History of Any Multi-Drug Resistant Organisms: None Reported Past Surgical History: Orthopedic Surgery Past Psychological History: No Psychological Hx Reported Smoking Status: Current every day smoker Past Alcohol Use History: Rare Past Drug Use History: None Reported Medications and Allergies Home Medications Medication Instructions Recorded Confirmed Type No Known Home Medications 07/29/24 07/29/24 History Allergies Allergy/AdvReac Type Severity Reaction Status Date / Time No Known Allergies Allergy Verified 07/29/24 17:35 Physical Exam Vitals: Vital Signs Temp Pulse Resp BP Pulse Ox 08/02/24 07:17 97.8 F 69 16 118/75 93 L 08/02/24 01:25 98.2 F 65 16 113/70 98 08/01/24 20:13 98.3 F 65 17 114/71 99 Intake and Output 08/01/24 08/02/24 08/02/24 22:59 06:59 14:59 Output Total 400 300 Balance -400 -300 Output: Drainage 400 300 Right lower back 400 300 Other: Voiding Method Toilet Toilet # Voids 5 2 # Bowel Movements 4 GENERAL DESCRIPTION: Middle-aged male lying in bed, no distress. No tachypnea or accessory muscle of respiration use. HEENT: Shows Pallor , no scleral icterus. Oral mucous membrane is dry. No pharyngeal erythema or thrush NECK: Trachea central, no thyromegaly. LUNGS: Unlabored breathing. Clear to auscultation anteriorly. No wheeze or crackle. HEART: S1, S2, regular rate and rhythm. No loud murmur ABDOMEN: Soft, no significant swelling or tenderness he did have drainage catheter with mostly dark flow rate EXTREMITIES: No edema of feet. SKIN: No rash, no masses palpable. NEUROLOGICAL: The patient is awake, alert, oriented x3, mood and affect normal. Results CBC & Chem 7: 08/02/24 03:04 08/01/24 02:59 Labs: Abnormal Lab Results - Last 24 Hours (Table) 08/02/24 Range/Units 03:04 RBC 3.29 L (4.40-5.60) X 10*6/uL Hgb 10.8 L (13.0-17.0) g/dL Hct 33.5 L (39.6-50.0) % MCV 101.8 H (80.0-97.0) FL MCH 32.8 H (27.0-32.0) pg Plt Count 617 H (140-440) X 10*3/uL Microbiology - Last 24 Hours (Table) 07/29/24 18:19 Blood Culture - Preliminary Blood Assessment and Plan (1) Groin mass Current Visit: Yes Status: Acute Code(s): R19.09 - OTHER INTRA-ABDOMINAL AND PELVIC SWELLING, MASS AND LUMP SNOMED Code(s): 683220263 (2) Retroperitoneal mass Current Visit: Yes Status: Acute Code(s): R19.00 - INTRA-ABD AND PELVIC SWELLING, MASS AND LUMP, UNSP SITE SNOMED Code(s): 37207427 Plan: 1patient presented to hospital initially with a swelling to the suprapubic abdominal area also have some difficulty urination patient noticed to have extensive retroperitoneal fluid collection with extension into the pubic symphysis status post CT-guided drainage however the fluid described was mostly serous the exact etiology currently not clear questionable urinary in origin patient did not have any fever or elevated white count we will make infection to be less likely but not entirely excluded excluded 2-patient benefit from a cystogram to rule out bladder leak and will also benefit from urology evaluation 3-May continue with Zosyn while waiting for the culture to finalize We will follow on clinical condition and cultures to further adjust medication if needed Thank you for this consultation we will follow the patient along with you Dictation was produced using [employer] dictation software. please excuse any grammatical, word or spelling errors. Time with Patient: Greater than 30
--- NOTE | 2024-08-03 09:56 | P.PN ---
Subjective Progress Note Date: 08/03/24 Patient seen and examined at bedside. No acute events. States abdominal pain is minimal Objective - Vital Signs Vital signs: Vital Signs Temp 98.1 F 08/03/24 07:03 Pulse 72 08/03/24 07:03 Resp 17 08/03/24 07:03 BP 118/75 08/03/24 07:03 Pulse Ox 93 L 08/03/24 07:03 FiO2 Intake & Output 08/02/24 08/03/24 08/03/24 18:59 06:59 18:59 Output Total 200 130 Balance -200 -130 Output: Drainage 200 130 Right lower back 200 130 Other: Voiding Method Toilet # Voids 3 2 - Constitutional General appearance: Present: cooperative, no acute distress - Gastrointestinal Gastrointestinal Comment(s): Soft, nontender, nondistended, no rebound, no guarding, palpable bulge in right groin continues to be present, decreasing in size - Psychiatric Psychiatric: Present: A&O x's 3 - Labs CBC & Chem 7: 08/02/24 03:04 08/01/24 02:59 Labs: Microbiology - Last 24 Hours (Table) 08/01/24 12:30 Gram Stain - Preliminary Peritoneal Fluid Body Fluid Culture - Preliminary 07/29/24 18:19 Blood Culture - Preliminary Blood Assessment and Plan Plan: 63-year-old male with retroperitoneal large fluid collection. Drainage catheter in place with continued output that is brown. Continue workup as this does not appear infectious. Possibility of old hematoma being drained based on quality of fluid. Cultures pending. Consider running cytology on this fluid.
--- NOTE | 2024-08-03 18:41 | CT ---
EXAMINATION TYPE: CT urogram wo/w con DATE OF EXAM: 08/03/2024 4:53 PM COMPARISON: CT abdomen pelvis most recent from 07/29/2024 CLINICAL INDICATION: Male, 63 years old with history of ?? rupture, further evaluation; PHH, bladder lac TECHNIQUE: Urogram with imaging of the abdomen and pelvis. Coronal and sagittal reformats were performed. 2D and 3D reconstructions are performed to assist visualization of the urinary tract on a separate workstat ion. Contrast used:100 mL of Isovue 370 without and with IV Contrast, Oral contrast used: None. CT DLP: 1279.2 mGycm, Automated exposure control for dose reduction was used. FINDINGS: LOWER CHEST: No significant findings. GENITOURINARY: RIGHT KIDNEY AND URETER: No calculi. No hydronephrosis or hydroureter. No renal mass or other lesions . Poor excretion of contrast into the right ureter limits evaluation. LEFT KIDNEY AND URETER: No calculi. No hydronephrosis or hydroureter. No renal mass or other lesions. No urothelial lesions: no filling defect, dilation, stricture or wall thickening. URINARY BLADDER: REPRODUCTIVE: Unremarkable. ABDOMEN LIVER: Unremarkable. GALLBLADDER AND BILE DUCTS: Multiple gallstones in the gallbladder lumen. PANCREAS: Unremarkable. SPLEEN: Unremarkable. ADRENAL GLANDS: Unremarkable. STOMACH AND BOWEL: . No evidence of bowel obstruction. PERITONEUM: No evidence of pneumoperitoneum, free fluid, or adenopathy. Heterogenous fluid collectio n in the right perirenal space extending down along the psoas and into the posterior pelvis. Fluid co llection surrounds the right ureter. Exchange catheter extends into this fluid collection more latera lly. VASCULATURE: No evidence of aortic aneurysm. MUSCULOSKELETAL: No acute osseous abnormalities LYMPH NODES: No gross evidence for lymphadenopathy. SOFT TISSUE/ABDOMINAL WALL: Fat-containing umbilical hernia. IMPRESSION: 1. No evidence of urolithiasis or renal/urothelial neoplasm. 2. Asymmetrically decreased excretion of contrast into the right ureter with poor visualization of th e entire right ureter. Consider follow-up exam 6 hours for further evaluation of the right renal rachell ecting system with limited noncontrast CT. 3. Right perinephric fluid collection with percutaneous catheter placed. There remains fluid extendin g down into the pelvis. 4. Cholelithiasis. [facility], Workstation: [id number], 08/03/2024 6:38 PM
--- NOTE | 2024-08-03 19:09 | P.PN ---
Subjective Progress Note Date: 08/03/24 This is a pleasant 63 years old male who presents with feeling a lump above his pubic symphysis area with little pain and bilateral leg swelling Patient fully awake oriented, denies overt abdominal pain vomiting or diarrhea. However he complains from mild pain about 2/10 in the right lower quadrant for about 1 week. Also has pain proximal to his right thigh. Denies urological symptoms like dysuria or urgency No chest pain or dyspnea. No headache dizziness weakness or numbness He smokes about 5 to 6 cigarettes/day and he was counseled to quit but he agrees. He declines nicotine patch. He denies alcohol or illicit drugs He states that his urine is little tight therefore we are going to check bladder scan Nicotine dependence Patient is afebrile Labs reviewed, no leukocytosis, hemoglobin 12.4 and 11.0 Platelet count 714 BMP, liver enzymes, INR and troponin x 1 were unremarkable Urinalysis is not significantly abnormal CT of the abdomen and pelvis showing massive retroperitoneal complex fluid collection on the right side extending into the presacral region and about 2 pubic symphysis, abscess versus chronic hematoma CTA of the chest is negative for PE D-dimer was elevated 1.76 Patient currently covered with Zosyn 07/31 Patient clinically the same, with some suprapubic fullness and mild pain He has no fever, no leukocytosis He remains on Zosyn for his complex retroperitoneal cyst collection Plan for IR consult tomorrow/Thursday as there is no IR team on weekends Surgery team following closely Urologist also evaluated the patient today and he does not feel it is related to his renal system besides his UA and bladder scan were unremarkable 08/01 Patient s/p catheter drainage of his retroperitoneal fluid collection with IR team A small sample of serous fluid obtained and sent for pathology, No suspicion of hematoma now is low Patient remains on Zosyn. Urology team following, general surgery team following 08/02/2024 Patient is seen and evaluated in follow-up with interventional radiology, general surgery, and urology following. Patient is status post drainage of the retroperitoneal fluid collection with interventional radiology yesterday. Patient remains on IV antibiotics with urology and general surgery following. No plans for surgical intervention at this time. Preliminary cultures awaiting finalized cultures to determine discharge antibiotics. Will consult and appreciate input and recommendations from infectious disease. Patient continues with the drainage bag and will continue to monitor output. Patient is afebrile with no reports of chest pain or shortness of breath. Patient reports plans on going home on discharge. Case management is following in the event patient needs antibiotics on discharge. Hopeful for oral as patient has no insurance c urrently. 08/03/2024 Patient is seen and evaluated in follow-up today with no acute overnight issues noted. Patient continues to have drainage noted in the groin catheter and appears serous and somewhat milky although also appears to be with urine. Will obtain a specimen and run urinalysis as well as discussing further with infectious disease with concerns of possible perforation will order cystogram for further evaluation. Patient is afebrile and white count remains stable and patient denies significant pain. Patient reports is voiding and urine is yellow and clear. Patient continues on antibiotics and cultures thus far negative. Awaiting repeat cultures to finalize to determine discharge antibiotics. Review of systems: Constitutional: No reports of fatigue, fever, or chills Cardiovascular: No reports of chest pain or palpitations Respiratory: No reports of shortness of breath or cough GI: No reports of nausea, vomiting, or diarrhea : No reports of dysuria or retention Neurovascular: reports of generalized weakness Physical exam: GENERAL: The patient is alert and oriented x3, not in any acute distress. Well developed, elderly appearing, thin built HEENT: Pupils are round and equally reacting to light. EOMI. No scleral icterus. No conjunctival pallor. Normocephalic, atraumatic. No pharyngeal erythema. No thyromegaly. CARDIOVASCULAR: S1 and S2 muffled PULMONARY: Diminished breath sounds bilaterally otherwise chest is clear to auscultation, no wheezing , no crackles. ABDOMEN: Soft, thin, nontender, nondistended, normoactive bowel sounds. No palpable organomegaly. Fullness in the suprapubic area has subsided, drainage catheter noted with serous fluid in the drainage bag MUSCULOSKELETAL: No joint swelling or deformity. EXTREMITIES: No cyanosis, clubbing, or pedal edema. NEUROLOGICAL: Gross neurological examination did not reveal any focal deficits. Diffuse weakness SKIN: No rashes. no petechiae. Assessment: Right retroperitoneal complex fluid collection, differential diagnosis including abscess versus hematoma, urological causes unlikely by urologist. Status post catheter drainage by IR on 08/01, small sample of serous fluid sent to pathology which is pending Elevated D-dimer with negative CT of the chest for PE Mild bilateral feet and leg swelling. With mild right thigh pain, negative for DVT Mild anemia Continued ongoing nicotine dependence Noncompliance with outpatient follow-up, currently has no insurance GI prophylaxis DVT prophylaxis Full code Plan: Patient was started on Zosyn and is continued on this. Infectious disease following and awaiting finalized cultures to determine discharge antibiotics. Concerns for possible perforation of this retroperitoneal area as the fluid in the drainage bag appears to be somewhat like urine. Will obtain cytology and also send urinalysis and will order a cystogram for further evaluation. Follow-up culture results, currently pending and blood cultures remain negative Follow-up pathology result. Lab was contacted regarding cytology which was not sent and have requested this which is pending at this time. Continue with other medications, recommend limiting narcotic use General Surgery on the case with no plans for surgical intervention. Interventional radiology following and is status post drainage tube of this retroperitoneal mass Urology team following: Unlikely to be of urological source, recommend to repeat CAT scan in 6 weeks Awaiting finalized cultures to determine appropriate antibiotic coverage Overall prognosis is guarded at this time The impression and plan of care has been dictated by Shraddha Arguelles, Nurse Practitioner as directed. Dr. Rodrigue MD I have performed a history and examination and MDM of this patient, discussed the same with the dictator, and agree with the dictator's assessment and plan as written ,documented as a scribe. Based on total visit time, I have performed more than 50% of the visit. Objective - Vital Signs Vital signs: Vital Signs Temp 98.1 F 08/03/24 07:03 Pulse 72 08/03/24 07:03 Resp 17 08/03/24 07:03 BP 118/75 08/03/24 07:03 Pulse Ox 93 L 08/03/24 07:03 FiO2 Intake & Output 08/02/24 08/03/24 08/03/24 18:59 06:59 18:59 Output Total 200 130 Balance -200 -130 Output: Drainage 200 130 Right lower back 200 130 Other: Voiding Method Toilet # Voids 3 2 - Labs CBC & Chem 7: 08/02/24 03:04 08/01/24 02:59 Labs: Microbiology - Last 24 Hours (Table) 08/01/24 12:30 Gram Stain - Preliminary Peritoneal Fluid Body Fluid Culture - Preliminary
[2024-08-03 19:34] LABS: Appearance,Urine Turbid (Clear); Bacteria,Urine Many /hpf; RBC,Urine >182 /hpf (0-5); WBC,Urine >182 /hpf (0-5)
[2024-08-03 19:35] LABS: Color,Urine Dark Brown
--- NOTE | 2024-08-04 06:43 | P.PN ---
Progress Note - Text Progress Note Date: 08/04/24 CHIEF COMPLAINT: Retroperitoneal right-sided fluid collection HISTORY OF PRESENT ILLNESS: No acute events overnight. Patient is status post drain placement for the right sided retroperitoneal fluid collection. The fluid is very dark brown in color. Patient does report that the pain is improving. Afebrile. PHYSICAL EXAM: VITAL SIGNS: Reviewed. GENERAL: Well-developed in no acute distress. HEENT: No sclera icterus. Extraocular movements grossly intact. Moist buccal mucosa. Head is atraumatic, normocephalic. ABDOMEN: Soft. Nondistended. Patient was swelling and tenderness noted suprapubic right groin area. No erythema. No drainage. NEUROLOGIC: Alert and oriented. Cranial nerves II through XII grossly intact. ASSESSMENT: 1. 63 year old male with complex retroperitoneal right sided fluid collection possibly representing a hematoma or abscess. Status post IR drain placement PLAN: -Continue to monitor drain output -Continue antibiotics -Continue pain management -Continue regular diet -Continue monitor hemoglobin -No surgical intervention planned Herman Dumont DO [facility] [phone]
[2024-08-04 08:51] LABS: Basophils % (A) 0 %; Eosinophils # (A) 0.3 k/uL (0-0.7); Eosinophils % (A) 4 %; HCT 37.7 % (39.0-53.0); HGB 12.1 gm/dL (13.0-17.5); Lymphocytes # (A) 1.3 k/uL (1.0-4.8); Lymphocytes % (A) 21 %; MCH 32.7 pg (25.0-35.0); MCHC 32.1 g/dL (31.0-37.0); Macrocytosis Slight; Mean Platelet Volume 7.8; Monocytes # (A) 0.5 k/uL (0-1.0); Monocytes % (A) 8 %; Neutrophils % (A) 65 %; Platelet Count 593 k/uL (150-450); RBC 3.69 m/uL (4.30-5.90); RDW 13.3 % (11.5-15.5); WBC 6.2 k/uL (3.8-10.6)
[2024-08-04 09:02] LABS: African American GFR (CKD) >90 (>60 ml/min/1.73 sqM); Anion Gap 5 mmol/L; Blood Urea Nitrogen 9 mg/dL (9-20); Calcium 9.1 mg/dL (8.4-10.2); Carbon Dioxide 29 mmol/L (22-30); Chloride 104 mmol/L (98-107); Glucose 84 mg/dL (74-99); Non-African American GFR(CKD) >90 (>60 ml/min/1.73 sqM); Potassium 4.1 mmol/L (3.5-5.1); Sodium 138 mmol/L (137-145)
--- NOTE | 2024-08-04 09:40 | P.PN ---
Subjective Progress Note Date: 08/03/24 Principal diagnosis: Reason for follow-up is retroperitoneal/suprapubic fluid collection questionable abscess Patient is a 63-year-old male with no significant past medical history current everyday smoker presenting to the hospital for evaluation of increasing swelling to the right pubic area that the pain has been going on for about a week, patient did have a CT abdominal pelvis suggestive of massive retroperitoneal complex fluid collection extending into the presacral and pubic symphysis area status post CT-guided aspiration of the fluid patient has been treated with [facility] infectious disease consulted for management of antibiotic. On today's evaluation that is 08/03/2024, Patient is afebrile this morning patient denies having any chest pain shortness of breath or cough, the patient is currently on room air, patient denies any abdominal pain no diarrhea no nausea no vomiting still having good output in the drainage catheter. Patient did not have any lab draw today cultures are currently pending Objective - Vital Signs Vital signs: Vital Signs Temp 98.1 F 08/03/24 07:03 Pulse 72 08/03/24 07:03 Resp 17 08/03/24 08:45 BP 118/75 08/03/24 07:03 Pulse Ox 93 L 08/03/24 07:03 FiO2 Intake & Output 08/02/24 08/03/24 08/03/24 18:59 06:59 18:59 Output Total 200 130 100 Balance -200 -130 -100 Output: Drainage 200 130 100 Right lower back 200 130 100 Other: Voiding Method Toilet Toilet # Voids 3 2 - Exam GENERAL DESCRIPTION: Middle-age male lying in bed in no distress RESPIRATORY SYSTEM: Unlabored breathing , decreased breath sounds at bases HEART: S1 S2 regular rate and rhythm , ABDOMEN: Soft , no tenderness EXTREMITIES: No edema feet - Labs CBC & Chem 7: 08/04/24 07:47 08/04/24 07:47 Labs: Microbiology - Last 24 Hours (Table) 08/01/24 12:30 Gram Stain - Preliminary Peritoneal Fluid Body Fluid Culture - Preliminary Assessment and Plan (1) Groin mass Current Visit: Yes Status: Acute Code(s): R19.09 - OTHER INTRA-ABDOMINAL AND PELVIC SWELLING, MASS AND LUMP SNOMED Code(s): 160789332 (2) Retroperitoneal mass Current Visit: Yes Status: Acute Code(s): R19.00 - INTRA-ABD AND PELVIC SWELLING, MASS AND LUMP, UNSP SITE SNOMED Code(s): 96322059 Plan: 1patient presented to hospital initially with a swelling to the suprapubic abdominal area also have some difficulty urination patient noticed to have exte nsive retroperitoneal fluid collection with extension into the pubic symphysis status post CT-guided drainage however the fluid described was mostly serous the exact etiology currently not clear questionable urinary in origin patient did not have any fever or elevated white count we will make infection to be less likely but not entirely excluded excluded 2-patient benefit from a cystogram to rule out bladder leak also check a UA discussed with the PROPULSION MOTOR AND GENERATOR REPAIRER for admitting team 3-patient to continue with Zosyn while waiting for the culture to finalize and monitor clinical course closely Dictation was produced using [employer] dictation software. please excuse any grammatical, word or spelling errors. Time with Patient: Less than 30
--- NOTE | 2024-08-04 10:38 | P.PN ---
Subjective Progress Note Date: 08/04/24 the patient is in the hospital for right sided abdominal pain due to a retroperitneal fluid collection. It was drained and the fluid is old blood. He feels better. the cultures are negative. He is afebrile He had a ct scan yesterday where no hydronephrosis was seen but there is delayed excretion sig nificantly on the right side.. Objective - Vital Signs Vital signs: Vital Signs Temp 98.0 F 08/04/24 08:12 Pulse 73 08/04/24 08:12 Resp 16 08/04/24 08:12 BP 100/65 08/04/24 08:12 Pulse Ox 96 08/04/24 08:12 FiO2 Intake & Output 08/03/24 08/04/24 08/04/24 18:59 06:59 18:59 Intake Total 1440 Output Total 100 Balance -100 1440 Intake: Oral 1440 Output: Drainage 100 Right lower back 100 Other: Voiding Method Toilet Toilet # Voids 4 3 1 - Gastrointestinal Gastrointestinal Comment(s): old bloody fluid per drain - Labs CBC & Chem 7: 08/04/24 07:47 08/04/24 07:47 Labs: Abnormal Lab Results - Last 24 Hours (Table) 08/03/24 08/04/24 Range/Units 18:35 07:47 RBC 3.69 L (4.30-5.90) m/uL Hgb 12.1 L (13.0-17.5) gm/dL Hct 37.7 L (39.0-53.0) % MCV 102.0 H (80.0-100.0) fL Plt Count 593 H (150-450) k/uL Urine RBC >182 H (0-5) /hpf Urine WBC >182 H (0-5) /hpf Urine WBC Clumps Many H (None) /hpf Urine Bacteria Many H (None) /hpf Microbiology - Last 24 Hours (Table) 07/29/24 18:19 Blood Culture - Final Blood 08/01/24 12:30 Anaerobic Culture - Preliminary Peritoneal Fluid 08/01/24 12:30 Gram Stain - Preliminary Peritoneal Fluid Body Fluid Culture - Preliminary Assessment and Plan Assessment: Impression: retroperitoneal fluid collection, serosanguinous. decreased right renal function, non obstructive. Recommendations; the findings on the ct scan make me wonder if there was a vascular insult leading to an infarct with secondary bleeding, There is no obstruction of the right urinary system. A stent is not beneficial. Vascular consultation would be in order
--- NOTE | 2024-08-04 13:44 | P.PN ---
Subjective Progress Note Date: 08/04/24 Principal diagnosis: Reason for follow-up is retroperitoneal/suprapubic fluid collection questionable abscess Patient is a 63-year-old male with no significant past medical history current everyday smoker presenting to the hospital for evaluation of increasing swelling to the right pubic area that the pain has been going on for about a week, patient did have a CT abdominal pelvis suggestive of massive retroperitoneal complex fluid collection extending into the presacral and pubic symphysis area status post CT-guided aspiration of the fluid patient has been treated with [facility] infectious disease consulted for management of antibiotic. On today's evaluation that is 08/04/2024,the patient denies any fever or any chills, patient is breathing comfortably on room air, the patient denies chest pain shortness of breath and no significant cough, patient abdominal suprapubic discomfort has decreased still have output in his drainage catheter which is mostly dark. The patient white count 6.2, creatinine 0.91, patient did have a CT urogram asymmetric decreased excretion of contrast into the right ureter with the poor visualization of the entire ureter Objective - Vital Signs Vital signs: Vital Signs Temp 97.6 F 08/04/24 00:36 Pulse 67 08/04/24 00:36 Resp 18 08/04/24 00:36 BP 117/72 08/04/24 00:36 Pulse Ox 95 08/04/24 00:36 FiO2 Intake & Output 08/03/24 08/04/24 08/04/24 18:59 06:59 18:59 Intake Total 1440 Output Total 100 Balance -100 1440 Intake: Oral 1440 Output: Drainage 100 Right lower back 100 Other: Voiding Method Toilet Toilet # Voids 4 3 - Exam GENERAL DESCRIPTION: Middle-age male lying in bed in no distress RESPIRATORY SYSTEM: Unlabored breathing , decreased breath sounds at bases HEART: S1 S2 regular rate and rhythm , ABDOMEN: Soft , no tenderness EXTREMITIES: No edema feet - Labs CBC & Chem 7: 08/04/24 07:47 08/04/24 07:47 Labs: Abnormal Lab Results - Last 24 Hours (Table) 08/03/24 08/04/24 Range/Units 18:35 07:47 RBC 3.69 L (4.30-5.90) m/uL Hgb 12.1 L (13.0-17.5) gm/dL Hct 37.7 L (39.0-53.0) % MCV 102.0 H (80.0-100.0) fL Plt Count 593 H (150-450) k/uL Urine RBC >182 H (0-5) /hpf Urine WBC >182 H (0-5) /hpf Urine WBC Clumps Many H (None) /hpf Urine Bacteria Many H (None) /hpf Microbiology - Last 24 Hours (Table) 07/29/24 18:19 Blood Culture - Final Blood 08/01/24 12:30 Anaerobic Culture - Preliminary Peritoneal Fluid 08/01/24 12:30 Gram Stain - Preliminary Peritoneal Fluid Body Fluid Culture - Preliminary Assessment and Plan (1) Groin mass Current Visit: Yes Status: Acute Code(s): R19.09 - OTHER INTRA-ABDOMINAL AND PELVIC SWELLING, MASS AND LUMP SNOMED Code(s): 433005861 (2) Retroperitoneal mass Current Visit: Yes Status: Acute Code(s): R19.00 - INTRA-ABD AND PELVIC SWELLING, MASS AND LUMP, UNSP SITE SNOMED Code(s): 07619108 Plan: 1patient presented to hospital initially with a swelling to the suprapubic abdominal area also have some difficulty urination patient noticed to have extensive retroperitoneal fluid collection with extension into the pubic symphysis status post CT-guided drainage however the fluid described was mostly serous the exact etiology currently not clear questionable urinary in origin patient did not have any fever or elevated white count we will make infection to be less likely but not entirely excluded excluded 2-patient benefit from CT urogram for visualization of the right ureter questionable injury urology following the patient recommending vascular evaluation 3-patient to continue with Zosyn while waiting for the culture to finalize and continue supportive care Dictation was produced using [employer] dictation software. please excuse any grammatical, word or spelling errors. Time with Patient: Less than 30
--- NOTE | 2024-08-05 06:50 | P.PN ---
Subjective Progress Note Date: 08/04/24 This is a pleasant 63 years old male who presents with feeling a lump above his pubic symphysis area with little pain and bilateral leg swelling Patient fully awake oriented, denies overt abdominal pain vomiting or diarrhea. However he complains from mild pain about 2/10 in the right lower quadrant for about 1 week. Also has pain proximal to his right thigh. Denies urological symptoms like dysuria or urgency No chest pain or dyspnea. No headache dizziness weakness or numbness He smokes about 5 to 6 cigarettes/day and he was counseled to quit but he agrees. He declines nicotine patch. He denies alcohol or illicit drugs He states that his urine is little tight therefore we are going to check bladder scan Nicotine dependence Patient is afebrile Labs reviewed, no leukocytosis, hemoglobin 12.4 and 11.0 Platelet count 714 BMP, liver enzymes, INR and troponin x 1 were unremarkable Urinalysis is not significantly abnormal CT of the abdomen and pelvis showing massive retroperitoneal complex fluid collection on the right side extending into the presacral region and about 2 pubic symphysis, abscess versus chronic hematoma CTA of the chest is negative for PE D-dimer was elevated 1.76 Patient currently covered with Zosyn 07/31 Patient clinically the same, with some suprapubic fullness and mild pain He has no fever, no leukocytosis He remains on Zosyn for his complex retroperitoneal cyst collection Plan for IR consult tomorrow/Thursday as there is no IR team on weekends Surgery team following closely Urologist also evaluated the patient today and he does not feel it is related to his renal system besides his UA and bladder scan were unremarkable 08/01 Patient s/p catheter drainage of his retroperitoneal fluid collection with IR team A small sample of serous fluid obtained and sent for pathology, No suspicion of hematoma now is low Patient remains on Zosyn. Urology team following, general surgery team following 08/02/2024 Patient is seen and evaluated in follow-up with interventional radiology, general surgery, and urology following. Patient is status post drainage of the retroperitoneal fluid collection with interventional radiology yesterday. Patient remains on IV antibiotics with urology and general surgery following. No plans for surgical intervention at this time. Preliminary cultures awaiting finalized cultures to determine discharge antibiotics. Will consult and appreciate input and recommendations from infectious disease. Patient continues with the drainage bag and will continue to monitor output. Patient is afebrile with no reports of chest pain or shortness of breath. Patient reports plans on going home on discharge. Case management is following in the event patient needs antibiotics on discharge. Hopeful for oral as patient has no insurance c urrently. 08/03/2024 Patient is seen and evaluated in follow-up today with no acute overnight issues noted. Patient continues to have drainage noted in the groin catheter and appears serous and somewhat milky although also appears to be with urine. Will obtain a specimen and run urinalysis as well as discussing further with infectious disease with concerns of possible perforation will order cystogram for further evaluation. Patient is afebrile and white count remains stable and patient denies significant pain. Patient reports is voiding and urine is yellow and clear. Patient continues on antibiotics and cultures thus far negative. Awaiting repeat cultures to finalize to determine discharge antibiotics. 08/04/2024 Patient is seen in follow-up today being followed by multiple consultations including urology, general surgery, infectious disease. Patient is status post IR drainage of the retroperitoneal mass versus hematoma and continues on IV antibiotics. Cultures thus far remain negative. Patient is having improvements in his abdominal pain and continues to have some drainage that is dark but has lessened. Patient did undergo CT urogram for evaluation of possible leak or perforation which was not detected although there was some decreased flow noted on the right. Urology evaluated recommending vascular surgery with concerns of possible vascular insult that would cause this bleeding into the retroperitoneum. Patient is afebrile and white count is within normal limits and again cultures have been negative. Review of systems: Constitutional: No reports of fatigue, fever, or chills Cardiovascular: No reports of chest pain or palpitations Respiratory: No reports of shortness of breath or cough GI: No reports of nausea, vomiting, or diarrhea : No reports of dysuria or retention Neurovascular: reports of generalized weakness Physical exam: GENERAL: The patient is alert and oriented x3, not in any acute distress. Well developed, elderly appearing, thin built HEENT: Pupils are round and equally reacting to light. EOMI. No scleral icterus. No conjunctival pallor. Normocephalic, atraumatic. No pharyngeal erythema. No thyromegaly. CARDIOVASCULAR: S1 and S2 muffled PULMONARY: Diminished breath sounds bilaterally otherwise chest is clear to auscultation, no wheezing , no crackles. ABDOMEN: Soft, thin, nontender, nondistended, normoactive bowel sounds. No palpable organomegaly. Fullness in the suprapubic area has subsided, drainage catheter noted with dark serous fluid in the drainage bag MUSCULOSKELETAL: No joint swelling or deformity. EXTREMITIES: No cyanosis, clubbing, or pedal edema. NEUROLOGICAL: Gross neurological examination did not reveal any focal deficits. Diffuse weakness SKIN: No rashes. no petechiae. Assessment: Right retroperitoneal complex fluid collection, differential diagnosis including abscess versus hematoma, urological causes unlikely by urologist. Status post catheter drainage by IR on 08/01, small sample of serous fluid sent to pathology which is pending Elevated D-dimer with negative CT of the chest for PE Mild bilateral feet and leg swelling. With mild right thigh pain, negative for DVT Mild anemia Continued ongoing nicotine dependence Noncompliance with outpatient follow-up, currently has no insurance GI prophylaxis DVT prophylaxis Full code Plan: Patient was started on Zosyn and is continued on this. Infectious disease following and awaiting finalized cultures to determine discharge antibiotics. Concerns for possible perforation of this retroperitoneal area as the fluid in the drainage bag appears to be somewhat like urine. cytology sent and pending and urinalysis from the bag showed dark turbid. Urogram was done showing no evidence of urolithiasis or renal urothelial neoplasm, and asymmetrically decreased excretion of contrast into the right ureter with poor visualization of the right ureter considering a follow-up exam of the right renal collecting system, right perinephric fluid collection with percutaneous catheter placed and fluid remains extending down into the pelvis with cholelithiasis. Per urology unsure if there was a vascular insult which would cause this bleeding and vascular will be consulted and appreciate input and recommendations. currently cultures and blood cultures remain negative Follow-up pathology result. Lab was contacted regarding cytology which was not sent and have requested this which is pending at this time. Continue with other medications, recommend limiting narcotic use General Surgery on the case with no plans for surgical intervention. Interventional radiology following and is status post drainage tube of this retroperitoneal mass Urology team following: Unlikely to be of urological source, recommend vascular surgery consult Overall prognosis is guarded at this time The impression and plan of care has been dictated by Shraddha Arguelles, Nurse Practitioner as directed. Dr. Rodrigue MD I have performed a history and examination and MDM of this patient, discussed the same with the dictator, and agree with the dictator's assessment and plan as written ,documented as a scribe. Based on total visit time, I have performed more than 50% of the visit. Objective - Vital Signs Vital signs: Vital Signs Temp 98 F 08/05/24 02:00 Pulse 74 08/05/24 02:00 Resp 15 08/05/24 02:00 BP 112/71 08/05/24 02:00 Pulse Ox 96 08/05/24 02:00 FiO2 Intake & Output 08/04/24 08/04/24 08/05/24 06:59 18:59 06:59 Intake Total 1440 100 Output Total 25 60 Balance 1440 -25 40 Intake: Intake, IV Titration 100 Amount Piperacillin-Tazobactam 3 100 .375 gm In Sodium Chloride 0.9% 100 ml @ 25 mls/hr IVPB Q8HR [facility] Rx# :[id number] Oral 1440 Output: Drainage 25 60 Right lower back 25 60 Other: Voiding Method Toilet # Voids 3 4 3 # Bowel Movements 1 - Labs CBC & Chem 7: 08/04/24 07:47 08/04/24 07:47 Labs: Abnormal Lab Results - Last 24 Hours (Table) 08/04/24 Range/Units 07:47 RBC 3.69 L (4.30-5.90) m/uL Hgb 12.1 L (13.0-17.5) gm/dL Hct 37.7 L (39.0-53.0) % MCV 102.0 H (80.0-100.0) fL Plt Count 593 H (150-450) k/uL Microbiology - Last 24 Hours (Table) 08/01/24 12:30 Gram Stain - Preliminary Peritoneal Fluid Body Fluid Culture - Preliminary 07/29/24 18:19 Blood Culture - Final Blood
[2024-08-05 09:03] VITALS: BMI 21.7
--- NOTE | 2024-08-05 10:08 | P.GSCN ---
History of Present Illness Consult date: 08/05/24 Reason for Consult: Retroperitoneal fluid collection possible vascular injury History of present illness: 63-year-old gentleman who presented originally to the emergency department secondary to right pubic swelling and right lower quadrant swelling and discomfort. He states roughly 2 weeks ago he was having coughing fits and nausea with vomiting and was wrenching pretty hard at that time. Since then he had recovered and acutely developed discomfort in his lower quadrant and pubic area. He was evaluated in the emergency department with CT scan which demonstrated a large retroperitoneal fluid collection. The scan was done with contrast and did not show any extravasation. He underwent IR drain which demonstrated dark old blood. He then underwent another CT scan with contrast for a urogram which once again demonstrated no evidence of active extravasation or bleeding. He states that his drain has been putting out dark fluid no bright red blood. Currently he states he feels pretty good and has no significant pain. He denies any fevers, chills, chest pain or shortness of breath. Review of Systems All systems: negative (What is mentioned in the HPI or past medical history) Past Medical History Past Medical History: No Reported History History of Any Multi-Drug Resistant Organisms: None Reported Past Surgical History: Orthopedic Surgery Past Psychological History: No Psychological Hx Reported Smoking Status: Current every day smoker Past Alcohol Use History: Rare Past Drug Use History: None Reported Medications and Allergies Home Medications Medication Instructions Recorded Confirmed Type No Known Home Medications 07/29/24 07/29/24 History Allergies Allergy/AdvReac Type Severity Reaction Status Date / Time No Known Allergies Allergy Verified 07/29/24 17:35 Surgical - Exam Vital Signs Temp Pulse Resp BP Pulse Ox 98.2 F 84 19 119/74 98 07/29/24 12:54 07/29/24 12:54 07/29/24 12:54 07/29/24 12:54 07/29/24 12:54 Patient Seen Date: 08/05/24 Patient Seen Time: 09:00 - General well developed, well nourished, no distress - Eyes PERRL, normal ocular movement - ENT normal pinna, normal nares - Neck no masses, no bruits - Cardiovascular Rhythm: regular - Abdomen Abdomen: soft, non tender - Integumentary no rash, no growths - Neurologic normal coordination, normal sensation - Psychiatric oriented to time, oriented to person, oriented to place, speech is normal Palpable femoral, popliteal, DP and PT pulses bilaterally No significant swelling noted in the lower abdomen or back. IR drain with dark old appearing blood Results Reviewed multiple CT scans with contrast which demonstrated no active extravasation Reviewed the labs which demonstrated no significant drop in hemoglobin - Labs 08/04/24 07:47 08/04/24 07:47 Microbiology - Last 24 Hours (Table) 08/03/24 18:35 Urine Culture - Final Urine,Catheterized 08/01/24 12:30 Gram Stain - Preliminary Peritoneal Fluid Body Fluid Culture - Preliminary 07/29/24 18:19 Blood Culture - Final Blood Assessment and Plan Assessment: Retroperitoneal fluid collection, old retained hematoma versus abscess No active bleeding noted on multiple images Likely old retroperitoneal bleed secondary to previous infection, coughing and vomiting Plan: Reviewed all images with the patient in full detail No active extravasation noted on any of the CTs with contrast Hemoglobin noted to be stable at this time. Would recommend continued monitoring. No vascular surgical intervention required at this time. Agree with continuing IR drain and repeat CT scan at a later time. Thank you for the consultation.
--- NOTE | 2024-08-05 10:19 | P.PN ---
Subjective Progress Note Date: 08/05/24 the patient is in the hospital with a retroperitoneal bleed leading to abdominal pain. He had interventional drainage of this fluid which is old blood. He had a follow-up computed tomography scan which showed delayed function of the right kidney without hydronephrosis. He was seen by vascular surgery yesterday and they had no recommendations. Objective - Vital Signs Vital signs: Vital Signs Temp 97.8 F 08/05/24 07:41 Pulse 70 08/05/24 07:41 Resp 18 08/05/24 07:41 BP 110/74 08/05/24 07:41 Pulse Ox 95 08/05/24 07:41 FiO2 Intake & Output 08/04/24 08/05/24 08/05/24 18:59 06:59 18:59 Intake Total 100 Output Total 25 60 Balance -25 40 Weight 72.575 kg Intake: Intake, IV Titration 100 Amount Piperacillin-Tazobactam 3 100 .375 gm In Sodium Chloride 0.9% 100 ml @ 25 mls/hr IVPB Q8HR [facility] Rx# :[id number] Output: Drainage 25 60 Right lower back 25 60 Other: # Voids 4 3 # Bowel Movements 1 - Labs CBC & Chem 7: 08/04/24 07:47 08/04/24 07:47 Labs: Microbiology - Last 24 Hours (Table) 08/03/24 18:35 Urine Culture - Final Urine,Catheterized 08/01/24 12:30 Gram Stain - Preliminary Peritoneal Fluid Body Fluid Culture - Preliminary Assessment and Plan Assessment: impression: Retroperitoneal bleed of indeterminate etiology possibly related to minor trauma aggravated by anticoagulation. Diminished function of the right kidney of indeterminate etiology Recommendations: I have no further urologic recommendations at this point in time.
--- NOTE | 2024-08-05 15:14 | P.PN ---
Subjective Patient seen and evaluated at bedside. Patient's abd pain improved, tolerating diet, denies fevers, chills, shortness of breath or chest pain. Objective - Vital Signs Vital signs: Vital Signs Temp 97.8 F 08/05/24 07:41 Pulse 70 08/05/24 07:41 Resp 18 08/05/24 09:50 BP 110/74 08/05/24 07:41 Pulse Ox 95 08/05/24 07:41 FiO2 Intake & Output 08/04/24 08/05/24 08/05/24 18:59 06:59 18:59 Intake Total 100 Output Total 25 60 Balance -25 40 Weight 72.575 kg Intake: Intake, IV Titration 100 Amount Piperacillin-Tazobactam 3 100 .375 gm In Sodium Chloride 0.9% 100 ml @ 25 mls/hr IVPB Q8HR [facility] Rx# :[id number] Output: Drainage 25 60 Right lower back 25 60 Other: # Voids 4 3 # Bowel Movements 1 - Exam gen: nad cv: rrr pul: non labored breathing abd: soft, min tenderness to palpation in the left lower quadrant, no guarding or rebound tenderness - Labs CBC & Chem 7: 08/04/24 07:47 08/04/24 07:47 Labs: Microbiology - Last 24 Hours (Table) 08/03/24 18:35 Urine Culture - Final Urine,Catheterized 08/01/24 12:30 Gram Stain - Preliminary Peritoneal Fluid Body Fluid Culture - Preliminary Assessment and Plan Assessment: 63 year old male with complex retroperitoneal right sided fluid collection possibly representing a hematoma or abscess. Status post IR drain placement PLAN: -Continue to monitor drain output -Continue antibiotics -Continue pain management -Continue regular diet -Continue monitor hemoglobin -No surgical intervention planned Time with Patient: Less than 30
--- NOTE | 2024-08-05 15:14 | P.PN ---
Subjective Progress Note Date: 08/05/24 Principal diagnosis: Reason for follow-up is retroperitoneal/suprapubic fluid collection questionable abscess Patient is a 63-year-old male with no significant past medical history current everyday smoker presenting to the hospital for evaluation of increasing swelling to the right pubic area that the pain has been going on for about a week, patient did have a CT abdominal pelvis suggestive of massive retroperitoneal complex fluid collection extending into the presacral and pubic symphysis area status post CT-guided aspiration of the fluid patient has been treated with [facility] infectious disease consulted for management of antibiotic. On today's evaluation that is 08/05/2024,the patient remains to be afebrile, patient is on room air not requiring supplemental oxygen and denies any shortness of breath no chest pain or cough.Patient denies having any nausea or vomiting, no abdominal pain still having drainage in that drainage catheter. Patient white count 6.2, creatinine 0.91 cultures so far pending Objective - Vital Signs Vital signs: Vital Signs Temp 97.8 F 08/05/24 07:41 Pulse 70 08/05/24 07:41 Resp 18 08/05/24 09:50 BP 110/74 08/05/24 07:41 Pulse Ox 95 08/05/24 07:41 FiO2 Intake & Output 08/04/24 08/05/24 08/05/24 18:59 06:59 18:59 Intake Total 100 Output Total 25 60 Balance -25 40 Weight 72.575 kg Intake: Intake, IV Titration 100 Amount Piperacillin-Tazobactam 3 100 .375 gm In Sodium Chloride 0.9% 100 ml @ 25 mls/hr IVPB Q8HR [facility] Rx# :[id number] Output: Drainage 25 60 Right lower back 25 60 Other: # Voids 4 3 # Bowel Movements 1 - Exam GENERAL DESCRIPTION: Middle-age male lying in bed in no distress RESPIRATORY SYSTEM: Unlabored breathing , decreased breath sounds at bases HEART: S1 S2 regular rate and rhythm , ABDOMEN: Soft , no tenderness EXTREMITIES: No edema feet - Labs CBC & Chem 7: 08/04/24 07:47 08/04/24 07:47 Labs: Microbiology - Last 24 Hours (Table) 08/03/24 18:35 Urine Culture - Final Urine,Catheterized 08/01/24 12:30 Gram Stain - Preliminary Peritoneal Fluid Body Fluid Culture - Preliminary Assessment and Plan (1) Groin mass Current Visit: Yes Status: Acute Code(s): R19.09 - OTHER INTRA-ABDOMINAL AND PELVIC SWELLING, MASS AND LUMP SNOMED Code(s): 133839256 (2) Retroperitoneal mass Current Visit: Yes Status: Acute Code(s): R19.00 - INTRA-ABD AND PELVIC SWELLING, MASS AND LUMP, UNSP SITE SNOMED Code(s): 10324737 Plan: 1patient presented to hospital initially with a swelling to the suprapubic abdominal area also have some difficulty urination patient noticed to have extensive retroperitoneal fluid collection with extension into the pubic symphysis status post CT-guided drainage however the fluid described was mostly serous the exact etiology currently not clear questionable urinary in origin patient did not have any fever or elevated white count we will make infection to be less likely but not entirely excluded excluded 2-patient has been evaluated by multiple consultants including neurology as well as vascular surgery and mentioning no evidence of any active bleeding or evidence of leakage from the right ureter 3-patient to continue with Zosyn however the culture remains to be negative recommend discontinue antibiotics Dictation was produced using [employer] dictation software. please excuse any grammatical, word or spelling errors. Time with Patient: Less than 30
--- NOTE | 2024-08-06 09:00 | P.PN ---
Subjective Progress Note Date: 08/05/24 This is a pleasant 63 years old male who presents with feeling a lump above his pubic symphysis area with little pain and bilateral leg swelling Patient fully awake oriented, denies overt abdominal pain vomiting or diarrhea. However he complains from mild pain about 2/10 in the right lower quadrant for about 1 week. Also has pain proximal to his right thigh. Denies urological symptoms like dysuria or urgency No chest pain or dyspnea. No headache dizziness weakness or numbness He smokes about 5 to 6 cigarettes/day and he was counseled to quit but he agrees. He declines nicotine patch. He denies alcohol or illicit drugs He states that his urine is little tight therefore we are going to check bladder scan Nicotine dependence Patient is afebrile Labs reviewed, no leukocytosis, hemoglobin 12.4 and 11.0 Platelet count 714 BMP, liver enzymes, INR and troponin x 1 were unremarkable Urinalysis is not significantly abnormal CT of the abdomen and pelvis showing massive retroperitoneal complex fluid collection on the right side extending into the presacral region and about 2 pubic symphysis, abscess versus chronic hematoma CTA of the chest is negative for PE D-dimer was elevated 1.76 Patient currently covered with Zosyn 07/31 Patient clinically the same, with some suprapubic fullness and mild pain He has no fever, no leukocytosis He remains on Zosyn for his complex retroperitoneal cyst collection Plan for IR consult tomorrow/Thursday as there is no IR team on weekends Surgery team following closely Urologist also evaluated the patient today and he does not feel it is related to his renal system besides his UA and bladder scan were unremarkable 08/01 Patient s/p catheter drainage of his retroperitoneal fluid collection with IR team A small sample of serous fluid obtained and sent for pathology, No suspicion of hematoma now is low Patient remains on Zosyn. Urology team following, general surgery team following 08/02/2024 Patient is seen and evaluated in follow-up with interventional radiology, general surgery, and urology following. Patient is status post drainage of the retroperitoneal fluid collection with interventional radiology yesterday. Patient remains on IV antibiotics with urology and general surgery following. No plans for surgical intervention at this time. Preliminary cultures awaiting finalized cultures to determine discharge antibiotics. Will consult and appreciate input and recommendations from infectious disease. Patient continues with the drainage bag and will continue to monitor output. Patient is afebrile with no reports of chest pain or shortness of breath. Patient reports plans on going home on discharge. Case management is following in the event patient needs antibiotics on discharge. Hopeful for oral as patient has no insurance c urrenkaitlin. 08/03/2024 Patient is seen and evaluated in follow-up today with no acute overnight issues noted. Patient continues to have drainage noted in the groin catheter and appears serous and somewhat milky although also appears to be with urine. Will obtain a specimen and run urinalysis as well as discussing further with infectious disease with concerns of possible perforation will order cystogram for further evaluation. Patient is afebrile and white count remains stable and patient denies significant pain. Patient reports is voiding and urine is yellow and clear. Patient continues on antibiotics and cultures thus far negative. Awaiting repeat cultures to finalize to determine discharge antibiotics. 08/04/2024 Patient is seen in follow-up today being followed by multiple consultations including urology, general surgery, infectious disease. Patient is status post IR drainage of the retroperitoneal mass versus hematoma and continues on IV antibiotics. Cultures thus far remain negative. Patient is having improvements in his abdominal pain and continues to have some drainage that is dark but has lessened. Patient did undergo CT urogram for evaluation of possible leak or perforation which was not detected although there was some decreased flow noted on the right. Urology evaluated recommending vascular surgery with concerns of possible vascular insult that would cause this bleeding into the retroperitoneum. Patient is afebrile and white count is within normal limits and again cultures have been negative. 08/05/2024 Patient is seen in follow-up today with multiple consultations following. Cultures remain negative of the drainage and patient continues to have some drainage output noted. Surgery following with no plans of surgical intervention. Vascular surgery evaluated the patient with no plans of intervention recommend to continue monitoring the output of the drainage bag. Patient is afebrile and white count remains negative. Infectious disease emmett burkett recommending monitoring off antibiotics. Will need to reconsult interventional radiology regarding drainage catheter removal and discuss further with other consultations regarding removing the drain. Review of systems: Constitutional: No reports of fatigue, fever, or chills Cardiovascular: No reports of chest pain or palpitations Respiratory: No reports of shortness of breath or cough GI: No reports of nausea, vomiting, or diarrhea : No reports of dysuria or retention Neurovascular: reports of generalized weakness but has been up and walking Physical exam: GENERAL: The patient is alert and oriented x3, not in any acute distress. Well developed, elderly appearing, thin built HEENT: Pupils are round and equally reacting to light. EOMI. No scleral icterus. No conjunctival pallor. Normocephalic, atraumatic. No pharyngeal erythema. No thyromegaly. CARDIOVASCULAR: S1 and S2 muffled PULMONARY: Diminished breath sounds bilaterally otherwise chest is clear to auscultation, no wheezing , no crackles. ABDOMEN: Soft, thin, nontender, nondistended, normoactive bowel sounds. No pa lpable organomegaly. Fullness in the suprapubic area has subsided, drainage catheter noted with dark serous fluid in the drainage bag MUSCULOSKELETAL: No joint swelling or deformity. EXTREMITIES: No cyanosis, clubbing, or pedal edema. NEUROLOGICAL: Gross neurological examination did not reveal any focal deficits. Diffuse weakness SKIN: No rashes. no petechiae. Assessment: Right retroperitoneal complex fluid collection, differential diagnosis including abscess versus hematoma, urological causes unlikely by urologist. Status post catheter drainage by IR on 08/01, small sample of serous fluid sent to pathology which is pending. Cultures remain negative Elevated D-dimer with negative CT of the chest for PE Mild bilateral feet and leg swelling. With mild right thigh pain, negative for DVT Mild anemia Continued ongoing nicotine dependence Noncompliance with outpatient follow-up, currently has no insurance GI prophylaxis DVT prophylaxis Full code Plan: Patient was started on Zosyn and is continued on this. Infectious disease following and awaiting finalized cultures to determine discharge antibiotics. Ultrasound remain negative and ID recommend monitoring off antibiotic therapy. Concerns for possible perforation of this retroperitoneal area as the fluid in the drainage bag appears to be somewhat like urine. cytology sent and pending and urinalysis from the bag showed dark turbid. Urogram was done showing no evidence of urolithiasis or renal urothelial neoplasm, and asymmetrically decreased excretion of contrast into the right ureter with poor visualization of the right ureter considering a follow-up exam of the right renal collecting system, right perinephric fluid collection with percutaneous catheter placed and fluid remains extending down into the pelvis with cholelithiasis. Per urology unsure if there was a vascular insult and vascular surgery evaluated the patient with no plans of intervention at this time recommend to continue monitoring the drainage output. Follow-up pathology result. Remains pending at this time Continue with other medications, recommend limiting narcotic use General Surgery on the case with no plans for surgical intervention. Interventional radiology following and is status post drainage tube of this retroperitoneal mass. Will need to discuss regarding removal of drainage tube with IR Overall prognosis is guarded at this time The impression and plan of care has been dictated by Shraddha Arguelles, Nurse Practitioner as directed. Dr. Rodrigue MD I have performed a history and examination and MDM of this patient, discussed the same with the dictator, and agree with the dictator's assessment and plan as written ,documented as a scribe. Based on total visit time, I have performed more than 50% of the visit. Objective - Vital Signs Vital signs: Vital Signs Temp 97.8 F 08/05/24 07:41 Pulse 70 08/05/24 07:41 Resp 18 08/05/24 07:41 BP 110/74 08/05/24 07:41 Pulse Ox 95 08/05/24 07:41 FiO2 Intake & Output 08/04/24 08/05/24 08/05/24 18:59 06:59 18:59 Intake Total 100 Output Total 25 60 Balance -25 40 Weight 72.575 kg Intake: Intake, IV Titration 100 Amount Piperacillin-Tazobactam 3 100 .375 gm In Sodium Chloride 0.9% 100 ml @ 25 mls/hr IVPB Q8HR [facility] Rx# :[id number] Output: Drainage 25 60 Right lower back 25 60 Other: # Voids 4 3 # Bowel Movements 1 - Labs CBC & Chem 7: 08/04/24 07:47 08/04/24 07:47 Labs: Microbiology - Last 24 Hours (Table) 08/03/24 18:35 Urine Culture - Final Urine,Catheterized 08/01/24 12:30 Gram Stain - Preliminary Peritoneal Fluid Body Fluid Culture - Preliminary
--- NOTE | 2024-08-06 10:21 | P.PN ---
Subjective Patient seen and evaluated at bedside. Patient's abd pain improved, tolerating diet, denies fevers, chills, shortness of breath or chest pain. Objective - Vital Signs Vital signs: Vital Signs Temp 98.0 F 08/06/24 07:28 Pulse 85 08/06/24 07:28 Resp 16 08/06/24 08:25 BP 100/64 08/06/24 07:28 Pulse Ox 95 08/06/24 07:28 FiO2 Intake & Output 08/05/24 08/06/24 08/06/24 18:59 06:59 18:59 Intake Total 760 Balance 760 Weight 72.575 kg 72.575 kg Intake: Oral 760 Other: # Voids 2 2 - Exam gen: nad cv: rrr pul: non labored breathing abd: soft, min tenderness to palpation in the left lower quadrant, no guarding or rebound tenderness - Labs CBC & Chem 7: 08/04/24 07:47 08/04/24 07:47 Labs: Microbiology - Last 24 Hours (Table) 08/01/24 12:30 Anaerobic Culture - Final Peritoneal Fluid 08/01/24 12:30 Gram Stain - Final Peritoneal Fluid Body Fluid Culture - Final 08/03/24 18:35 Urine Culture - Final Urine,Catheterized Assessment and Plan Assessment: 63 year old male with complex retroperitoneal right sided fluid collection possibly representing a hematoma or abscess. Status post IR drain placement PLAN: -Continue to monitor drain output -Continue antibiotics -Continue pain management -Continue regular diet -Continue monitor hemoglobin -No surgical intervention planned, ok discharge from surgical standpoint. Time with Patient: Less than 30
--- NOTE | 2024-08-06 12:07 | P.PN ---
Subjective Progress Note Date: 08/06/24 This is a pleasant 63 years old male who presents with feeling a lump above his pubic symphysis area with little pain and bilateral leg swelling Patient fully awake oriented, denies overt abdominal pain vomiting or diarrhea. However he complains from mild pain about 2/10 in the right lower quadrant for about 1 week. Also has pain proximal to his right thigh. Denies urological symptoms like dysuria or urgency No chest pain or dyspnea. No headache dizziness weakness or numbness He smokes about 5 to 6 cigarettes/day and he was counseled to quit but he agrees. He declines nicotine patch. He denies alcohol or illicit drugs He states that his urine is little tight therefore we are going to check bladder scan Nicotine dependence Patient is afebrile Labs reviewed, no leukocytosis, hemoglobin 12.4 and 11.0 Platelet count 714 BMP, liver enzymes, INR and troponin x 1 were unremarkable Urinalysis is not significantly abnormal CT of the abdomen and pelvis showing massive retroperitoneal complex fluid collection on the right side extending into the presacral region and about 2 pubic symphysis, abscess versus chronic hematoma CTA of the chest is negative for PE D-dimer was elevated 1.76 Patient currently covered with Zosyn 07/31 Patient clinically the same, with some suprapubic fullness and mild pain He has no fever, no leukocytosis He remains on Zosyn for his complex retroperitoneal cyst collection Plan for IR consult tomorrow/Thursday as there is no IR team on weekends Surgery team following closely Urologist also evaluated the patient today and he does not feel it is related to his renal system besides his UA and bladder scan were unremarkable 08/01 Patient s/p catheter drainage of his retroperitoneal fluid collection with IR team A small sample of serous fluid obtained and sent for pathology, No suspicion of hematoma now is low Patient remains on Zosyn. Urology team following, general surgery team following 08/02/2024 Patient is seen and evaluated in follow-up with interventional radiology, general surgery, and urology following. Patient is status post drainage of the retroperitoneal fluid collection with interventional radiology yesterday. Patient remains on IV antibiotics with urology and general surgery following. No plans for surgical intervention at this time. Preliminary cultures awaiting finalized cultures to determine discharge antibiotics. Will consult and appreciate input and recommendations from infectious disease. Patient continues with the drainage bag and will continue to monitor output. Patient is afebrile with no reports of chest pain or shortness of breath. Patient reports plans on going home on discharge. Case management is following in the event patient needs antibiotics on discharge. Hopeful for oral as patient has no insurance currently. 08/03/2024 Patient is seen and evaluated in follow-up today with no acute overnight issues noted. Patient continues to have drainage noted in the groin catheter and appears serous and somewhat milky although also appears to be with urine. Will obtain a specimen and run urinalysis as well as discussing further with infectious disease with concerns of possible perforation will order cystogram for further evaluation. Patient is afebrile and white count remains stable and patient denies significant pain. Patient reports is voiding and urine is yellow and clear. Patient continues on antibiotics and cultures thus far negative. Awaiting repeat cultures to finalize to determine discharge antibiotics. 08/04/2024 Patient is seen in follow-up today being followed by multiple consultations including urology, general surgery, infectious disease. Patient is status post IR drainage of the retroperitoneal mass versus hematoma and continues on IV antibiotics. Cultures thus far remain negative. Patient is having improvements in his abdominal pain and continues to have some drainage that is dark but has lessened. Patient did undergo CT urogram for evaluation of possible leak or perforation which was not detected although there was some decreased flow noted on the right. Urology evaluated recommending vascular surgery with concerns of possible vascular insult that would cause this bleeding into the retroperitoneum. Patient is afebrile and white count is within normal limits and again cultures have been negative. 08/05/2024 Patient is seen in follow-up today with multiple consultations following. Cultures remain negative of the drainage and patient continues to have some drainage output noted. Surgery following with no plans of surgical intervention. Vascular surgery evaluated the patient with no plans of intervention recommend to continue monitoring the output of the drainage bag. Patient is afebrile and white count remains negative. Infectious disease fol lowharriett recommending monitoring off antibiotics. Will need to reconsult interventional radiology regarding drainage catheter removal and discuss further with other consultations regarding removing the drain. REVIEW OF SYSTEMS: CONSTITUTIONAL: No fever, no malaise,. CARDIOVASCULAR: No chest pain, no palpitations, no syncope. PULMONARY: No shortness of breath, no cough, GASTROINTESTINAL: No diarrhea, no nausea, no vomiting, no abdominal pain. NEUROLOGICAL: No headaches, no weakness, PHYSICAL EXAMINATION: GENERAL: The patient is alert and oriented x3, not in any acute distress. Well developed, well nourished. HEENT: Pupils are round and equally reacting to light. EOMI. No scleral icterus. No conjunctival pallor. Normocephalic, atraumatic. No pharyngeal erythema. No thyromegaly. CARDIOVASCULAR: S1 and S2 present. No murmurs, rubs, or gallops. PULMONARY: Chest is clear to auscultation, no wheezing or crackles. ABDOMEN: Soft, nontender, nondistended, drainage catheter is seen MUSCULOSKELETAL: No joint swelling or deformity. EXTREMITIES: No cyanosis, clubbing, or pedal edema. NEUROLOGICAL: Gross neurological examination did not reveal any focal deficits. SKIN: No rashes. Assessment and plan Right retroperitoneal complex fluid collection, differential diagnosis including abscess versus hematoma, urological causes unlikely by urologist. Status post catheter drainage by IR on 08/01, small sample of serous fluid sent to pathology which is pending. Cultures remain negative Elevated D-dimer with negative CT of the chest for PE Mild bilateral feet and leg swelling. With mild right thigh pain, negative for DVT Mild anemia Continued ongoing nicotine dependence Noncompliance with outpatient follow-up, currently has no insurance Monitor vital signs Monitor CBC Monitor CMP Patient was started on Zosyn and is continued on this. Infectious disease following and awaiting finalized cultures to determine discharge antibiotics. Urogram was done showing no evidence of urolithiasis or renal urothelial neoplasm, and asymmetrically decreased excretion of contrast into the right ureter with poor visualization of the right ureter considering a follow-up exam of the right renal collecting system, right perinephric fluid collection with percutaneous catheter placed and fluid remains extending down into the pelvis with cholelithiasis. Per urology unsure if there was a vascular insult and vascular surgery evaluated the patient with no plans of intervention at this t rj recommend to continue monitoring the drainage output. ID following Labs and medication were reviewed.. Continue same treatment. Continue with symptomatic treatment. Resume home medication. Monitor labs and vitals. DVT and GI prophylaxis. Further recommendations as per clinical course of the patient Dictation was produced using [employer] dictation software. please excuse any grammatical, word or spelling errors. Objective - Vital Signs Vital signs: Vital Signs Temp 98.0 F 08/06/24 07:28 Pulse 85 08/06/24 07:28 Resp 16 08/06/24 08:25 BP 100/64 08/06/24 07:28 Pulse Ox 95 08/06/24 07:28 FiO2 Intake & Output 08/05/24 08/06/24 08/06/24 18:59 06:59 18:59 Intake Total 760 Balance 760 Weight 72.575 kg 72.575 kg Intake: Oral 760 Other: # Voids 2 2 - Labs CBC & Chem 7: 08/04/24 07:47 08/04/24 07:47 Labs: Microbiology - Last 24 Hours (Table) 08/01/24 12:30 Anaerobic Culture - Final Peritoneal Fluid 08/01/24 12:30 Gram Stain - Final Peritoneal Fluid Body Fluid Culture - Final 08/03/24 18:35 Urine Culture - Final Urine,Catheterized
--- NOTE | 2024-08-06 16:14 | P.PN ---
Subjective Progress Note Date: 08/06/24 Principal diagnosis: Reason for follow-up is retroperitoneal/suprapubic fluid collection questionable abscess Patient is a 63-year-old male with no significant past medical history current everyday smoker presenting to the hospital for evaluation of increasing swelling to the right pubic area that the pain has been going on for about a week, patient did have a CT abdominal pelvis suggestive of massive retroperitoneal complex fluid collection extending into the presacral and pubic symphysis area status post CT-guided aspiration of the fluid patient has been treated with [facility] infectious disease consulted for management of antibiotic. On today's evaluation that is 08/06/2024, the patient continues to be afebrile, the patient is on room air and breathing comfortably, the Pt denies having any chest pain or cough, the patient denies having any abdominal pain no vomiting or any diarrhea has been reported by the nursing staff still have good output in the drainage catheter. No CBC was done today culture remains to be negative Objective - Vital Signs Vital signs: Vital Signs Temp 97.5 F L 08/06/24 13:47 Pulse 85 08/06/24 13:47 Resp 16 08/06/24 13:47 BP 99/64 08/06/24 13:47 Pulse Ox 96 08/06/24 13:47 FiO2 Intake & Output 08/05/24 08/06/24 08/06/24 18:59 06:59 18:59 Intake Total 760 Balance 760 Weight 72.575 kg 72.575 kg Intake: Oral 760 Other: # Voids 2 2 - Exam GENERAL DESCRIPTION: Middle-age male lying in bed in no distress RESPIRATORY SYSTEM: Unlabored breathing , decreased breath sounds at bases HEART: S1 S2 regular rate and rhythm , ABDOMEN: Soft , no tenderness EXTREMITIES: No edema feet - Labs CBC & Chem 7: 08/04/24 07:47 08/04/24 07:47 Labs: Microbiology - Last 24 Hours (Table) 08/01/24 12:30 Anaerobic Culture - Final Peritoneal Fluid 08/01/24 12:30 Gram Stain - Final Peritoneal Fluid Body Fluid Culture - Final Assessment and Plan (1) Groin mass Current Visit: Yes Status: Acute Code(s): R19.09 - OTHER INTRA-ABDOMINAL AND PELVIC SWELLING, MASS AND LUMP SNOMED Code(s): 762106593 (2) Retroperitoneal mass Current Visit: Yes Status: Acute Code(s): R19.00 - INTRA-ABD AND PELVIC SWELLING, MASS AND LUMP, UNSP SITE SNOMED Code(s): 82229723 Plan: 1patient presented to hospital initially with a swelling to the suprapubic abdominal area also have some difficulty urination patient noticed to have extensive retroperitoneal fluid collection with extension into the pubic symphysis status post CT-guided drainage however the fluid described was mostly serous the exact etiology currently not clear questionable urinary in origin patient did not have any fever or elevated white count we will make infection to be less likely but not entirely excluded excluded 2-patient has been evaluated by multiple consultants including neurology as well as vascular surgery and mentioning no evidence of any active bleeding or evidence of leakage from the right ureter 3-patient remains to be febrile culture has been negative will discontinue Zosyn monitor the patient closely off antibiotic Dictation was produced using [employer] dictation software. please excuse any grammatical, word or spelling errors. Time with Patient: Less than 30
[2024-08-07 02:36] VITALS: TEMP 98.2
[2024-08-07 08:59] LABS: Basophils # (A) 0.08 X 10*3/uL (0.00-0.10); Eosinophils # (A) 0.43 X 10*3/uL (0.04-0.35); Eosinophils % (A) 5.4 %; HCT 34.5 % (39.6-50.0); HGB 11.2 g/dL (13.0-17.0); Lymphocytes # (A) 2.54 X 10*3/uL (0.90-5.00); Lymphocytes % (A) 31.8 %; MCH 33.3 pg (27.0-32.0); MCHC 32.5 g/dL (32.0-37.0); MCV 102.7 FL (80.0-97.0); Monocytes # (A) 0.96 X 10*3/uL (0.20-1.00); NRBC Per 100 WBC 0 X 10*3/uL (0.00-0.01); Neutrophils # (A) 3.95 X 10*3/uL (1.80-7.70); Neutrophils % (A) 49.5 %; Platelet Count 521 X 10*3/uL (140-440); RBC 3.36 X 10*6/uL (4.40-5.60); WBC 7.98 X 10*3/uL (4.50-10.00)
[2024-08-07 09:05] VITALS: BP 104/62; PULSE 83; RESP 16
[2024-08-07 09:26] LABS: ALT 15 U/L (10-49); AST 19 U/L (14-35); Albumin 3.4 g/dL (3.8-4.9); Albumin/Globulin Ratio 1.13 Ratio (1.60-3.17); Alkaline Phosphatase 47 U/L (41-126); BUN/Creat Ratio 13.89 Ratio (12.00-20.00); Blood Urea Nitrogen 12.5 mg/dL (9.0-27.0); Calcium 9.2 mg/dL (8.7-10.3); Chloride 107 mmol/L (96-109); Glucose 90 mg/dL (70-110); Potassium 4.5 mmol/L (3.5-5.5); Sodium 141 mmol/L (135-145); Total Bilirubin 0.3 mg/dL (0.3-1.2); Total Protein 6.4 g/dL (6.2-8.2)
--- NOTE | 2024-08-07 13:16 | P.DS ---
Providers Date of admission: 07/29/24 17:05 Expected date of discharge: 08/07/24 Attending physician: Riley Franco Consults: 07/30/24 07:13 Consult Physician Routine Consulting Provider: Herman Dumont Consult Reason/Comments: Hematoma/Abscess Do you want consulting provider notified?: Already Contacted 07/30/24 19:11 Consult Physician Routine Consulting Provider: Sarthak Stone Consult Reason/Comments: reptroperitoneal collection, r/u urological causes Do you want consulting provider notified?: Yes, Notify in am 08/02/24 14:05 Consult Physician Urgent Consulting Provider: Nellie Gallagher Consult Reason/Comments: right groin abscess, drainage plcmt, abx recs Do you want consulting provider notified?: Yes 08/05/24 06:39 Consult Physician Urgent Consulting Provider: Dolores Atkinson Consult Reason/Comments: vascular insult? retroperitoneal fluid rachell/hematoma Do you want consulting provider notified?: Yes Primary care physician: [facility] Course: Discharge diagnoses; Right retroperitoneal complex fluid collection, differential diagnosis including abscess versus hematoma, urological causes unlikely by urologist. Status post catheter drainage by IR on 08/01, small sample of serous fluid sent to pathology which is pending. Cultures remain negative Elevated D-dimer with negative CT of the chest for PE Mild bilateral feet and leg swelling. With mild right thigh pain, negative for DVT Mild anemia Continued ongoing nicotine dependence Noncompliance with outpatient follow-up, currently has no insurance Hospital course; This is a pleasant 63 years old male who presents with feeling a lump above his pubic symphysis area with little pain and bilateral leg swelling Patient fully awake oriented, denies overt abdominal pain vomiting or diarrhea. However he complains from mild pain about 2/10 in the right lower quadrant for about 1 week. Also has pain proximal to his right thigh. Denies urological symptoms like dysuria or urgency No chest pain or dyspnea. No headache dizziness weakness or numbness He smokes about 5 to 6 cigarettes/day and he was counseled to quit but he agrees. He declines nicotine patch. He denies alcohol or illicit drugs He states that his urine is little tight therefore we are going to check bladder scan Nicotine dependence Patient is afebrile Labs reviewed, no leukocytosis, hemoglobin 12.4 and 11.0 Platelet count 714 BMP, liver enzymes, INR and troponin x 1 were unremarkable Urinalysis is not significantly abnormal CT of the abdomen and pelvis showing massive retroperitoneal complex fluid collection on the right side extending into the presacral region and about 2 pubic symphysis, abscess versus chronic hematoma CTA of the chest is negative for PE D-dimer was elevated 1.76 Patient currently covered with Zosyn 07/31 Patient clinically the same, with some suprapubic fullness and mild pain He has no fever, no leukocytosis He remains on Zosyn for his complex retroperitoneal cyst collection Plan for IR consult tomorrow/Thursday as there is no IR team on weekends Surgery team following closely Urologist also evaluated the patient today and he does not feel it is related to his renal system besides his UA and bladder scan were unremarkable 08/01 Patient s/p catheter drainage of his retroperitoneal fluid collection with IR team A small sample of serous fluid obtained and sent for pathology, No suspicion of hematoma now is low Patient remains on Zosyn. Urology team following, general surgery team following 08/02/2024 Patient is seen and evaluated in follow-up with interventional radiology, general surgery, and urology following. Patient is status post drainage of the retroperitoneal fluid collection with interventional radiology yesterday. Patient remains on IV antibiotics with urology and general surgery following. No plans for surgical intervention at this time. Preliminary cultures awaiting finalized cultures to determine discharge antibiotics. Will consult and apprec iate input and recommendations from infectious disease. Patient continues with the drainage bag and will continue to monitor output. Patient is afebrile with no reports of chest pain or shortness of breath. Patient reports plans on going home on discharge. Case management is following in the event patient needs antibiotics on discharge. Hopeful for oral as patient has no insurance currently. 08/03/2024 Patient is seen and evaluated in follow-up today with no acute overnight issues noted. Patient continues to have drainage noted in the groin catheter and appears serous and somewhat milky although also appears to be with urine. Will obtain a specimen and run urinalysis as well as discussing further with infectious disease with concerns of possible perforation will order cystogram fo r further evaluation. Patient is afebrile and white count remains stable and patient denies significant pain. Patient reports is voiding and urine is yellow and clear. Patient continues on antibiotics and cultures thus far negative. Awaiting repeat cultures to finalize to determine discharge antibiotics. 08/04/2024 Patient is seen in follow-up today being followed by multiple consultations i ncluding urology, general surgery, infectious disease. Patient is status post IR drainage of the retroperitoneal mass versus hematoma and continues on IV antibiotics. Cultures thus far remain negative. Patient is having improvements in his abdominal pain and continues to have some drainage that is dark but has lessened. Patient did undergo CT urogram for evaluation of possible leak or perforation which was not detected although there was some decreased flow noted on the right. Urology evaluated recommending vascular surgery with concerns of possible vascular insult that would cause this bleeding into the retroperitoneum. Patient is afebrile and white count is within normal limits and again cultures have been negative. 08/05/2024 Patient is seen in follow-up today with multiple consultations following. Cultures remain negative of the drainage and patient continues to have some drainage output noted. Surgery following with no plans of surgical intervention. Vascular surgery evaluated the patient with no plans of intervention recommend to continue monitoring the output of the drainage bag. Patient is afebrile and white count remains negative. Infectious disease following recommending monitoring off antibiotics. Will need to reconsult interventional radiology regarding drainage catheter removal and discuss further with other consultations regarding removing the drain. 08/07. Patient seen and examined. No acute issues overnight. Antibiotics have been discontinued by ID. Patient to follow-up outpatient with PCP and surgery and infectious disease. Patient being discharged with drain PHYSICAL EXAMINATION: GENERAL: The patient is alert and oriented x3, not in any acute distress. Well developed, well nourished. HEENT: Pupils are round and equally reacting to light. EOMI. No scleral icterus. No conjunctival pallor. Normocephalic, atraumatic. No pharyngeal erythema. No thyromegaly. CARDIOVASCULAR: S1 and S2 present. No murmurs, rubs, or gallops. PULMONARY: Chest is clear to auscultation, no wheezing or crackles. ABDOMEN: Soft, nontender, nondistended, normoactive bowel sounds. No palpable organomegaly. Drain catheter seen MUSCULOSKELETAL: No joint swelling or deformity. EXTREMITIES: No cyanosis, clubbing, or pedal edema. NEUROLOGICAL: Gross neurological examination did not reveal any focal deficits. SKIN: No rashes. Dictation was produced using byydation software. please excuse any grammatical, word or spelling errors. Patient Condition at Discharge: Stable Plan - Discharge Summary Discharge Rx Participant: No New Discharge Prescriptions: No Action No Known Home Medications Discharge Medication List No Known Home Medications 07/29/24 [History] Follow up Appointment(s)/Referral(s): Kristin Cavanaugh MD [Primary Care Provider] - 1-2 days Bayron Mckeon DO [Doctor of Osteopathic Medicine] - 1 Week Nellie Gallagher MD [STAFF PHYSICIAN] - 1 Week Discharge Disposition: HOME SELF-CARE
--- NOTE | 2024-08-09 12:35 | P.PN ---
Subjective Progress Note Date: 08/07/24 Principal diagnosis: Reason for follow-up is retroperitoneal/suprapubic fluid collection questionable abscess Patient is a 63-year-old male with no significant past medical history current everyday smoker presenting to the hospital for evaluation of increasing swelling to the right pubic area that the pain has been going on for about a week, patient did have a CT abdominal pelvis suggestive of massive retroperitoneal complex fluid collection extending into the presacral and pubic symphysis area status post CT-guided aspiration of the fluid patient has been treated with [facility] infectious disease consulted for management of antibiotic. On today's evaluation that is 08/07/2024, patient has been afebrile, patient is breathing comfortably and is currently on room air, patient denies having any significant cough no chest pain, patient denies nausea vomiting or diarrhea and no abdominal pain still have good output in the drainage catheter. Patient white count 7.98, creatinine 0.9 culture remains to be negative Objective - Vital Signs Vital signs: Vital Signs Temp 98.2 F 08/07/24 07:42 Pulse 83 08/07/24 07:42 Resp 16 08/07/24 08:20 BP 104/62 08/07/24 07:42 Pulse Ox 97 08/07/24 07:42 FiO2 Intake & Output 08/06/24 08/07/24 08/07/24 18:59 06:59 18:59 Intake Total 760 Output Total 140 50 Balance -140 760 -50 Weight 72.575 kg Intake: Oral 760 Output: Drainage 140 50 Right lower back 140 50 Other: # Voids 4 3 - Exam GENERAL DESCRIPTION: Middle-age male lying in bed in no distress RESPIRATORY SYSTEM: Unlabored breathing , decreased breath sounds at bases HEART: S1 S2 regular rate and rhythm , ABDOMEN: Soft , no tenderness EXTREMITIES: No edema feet - Labs CBC & Chem 7: 08/07/24 03:04 08/07/24 03:04 Labs: Abnormal Lab Results - Last 24 Hours (Table) 08/07/24 08/07/24 Range/Units 03:04 03:04 RBC 3.36 L (4.40-5.60) X 10*6/uL Hgb 11.2 L (13.0-17.0) g/dL Hct 34.5 L (39.6-50.0) % MCV 102.7 H (80.0-97.0) FL MCH 33.3 H (27.0-32.0) pg Plt Count 521 H (140-440) X 10*3/uL Eosinophils # 0.43 H (0.04-0.35) X 10*3/uL Albumin 3.4 L (3.8-4.9) g/dL Albumin/Globulin Ratio 1.13 L (1.60-3.17) Ratio Assessment and Plan (1) Groin mass Status: Acute Code(s): R19.09 - OTHER INTRA-ABDOMINAL AND PELVIC SWELLING, MASS AND LUMP SNOMED Code(s): 846830661 (2) Retroperitoneal mass Status: Acute Code(s): R19.00 - INTRA-ABD AND PELVIC SWELLING, MASS AND LUMP, UNSP SITE SNOMED Code(s): 58665763 Plan: 1patient presented to hospital initially with a swelling to the suprapubic abdominal area also have some difficulty urination patient noticed to have extensive retroperitoneal fluid collection with extension into the pubic symphysis status post CT-guided drainage however the fluid described was mostly serous the exact etiology currently not clear questionable urinary in origin patient did not have any fever or elevated white count we will make infection to be less likely but not entirely excluded excluded 2-patient has been evaluated by multiple consultants including neurology as well as vascular surgery and mentioning no evidence of any active bleeding or evidence of leakage from the right ureter 3-patient remains to be afebrile culture has been negative and seem to have done well over the last 24-hour after discontinuation of his antibiotic making infection to be less likely etiology and will watch him closely off antibiotics Dictation was produced using [employer] dictation software. please excuse any grammatical, word or spelling errors. Time with Patient: Less than 30
== END 2024-08-07 14:33 | disposition home or self-care (01) | DRG 372 ==
LOC: EC 12:28 → 4SSUR 17:05
PROVIDERS: ADMIT Hospitalist; ATTEND Hospitalist
PROC: 0W9H30Z Drainage of Retroperitoneum with Drainage Device, Percutaneous Approach (ICD-10-PCS; principal; 2024-08-01)
DX: K68.9 Other disorders of retroperitoneum (principal); L02.214 Cutaneous abscess of groin; F17.210 Nicotine dependence, cigarettes, uncomplicated; D64.9 Anemia, unspecified; Z59.71 Insufficient health insurance coverage; Z91.190 Patient's noncompliance with other medical treatment and regimen due to financial hardship
CPT/HCPCS: 36415; 71046; 71275; 74177; 74178; 74400; 75989; 80048; 80053; 81001; 81003; 83605; 84145; 84484; 85025; 85379; 85610; 85730; 86140; 87040; 87070; 87075; 87086; 87205; 88173; 88305; 89050; 93005; 93970; 96365; 96366; 99285

== ENCOUNTER 2024-09-02 15:23 | Emergency (ER) | payer OTHER ==
[2024-09-02 15:39] VITALS: TEMP 97.5
[2024-09-02 16:07] LABS: Basophils % (A) 1 %; Eosinophils # (A) 0.3 k/uL (0-0.7); Eosinophils % (A) 4 %; HCT 36.3 % (39.0-53.0); HGB 11.6 gm/dL (13.0-17.5); Lymphocytes % (A) 27 %; MCH 31.5 pg (25.0-35.0); MCV 98.5 fL (80.0-100.0); Mean Platelet Volume 7.5; Monocytes # (A) 0.6 k/uL (0-1.0); Monocytes % (A) 9 %; Neutrophils # (A) 4.3 k/uL (1.3-7.7); Neutrophils % (A) 59 %; Platelet Count 355 k/uL (150-450); RBC 3.69 m/uL (4.30-5.90); RDW 12.9 % (11.5-15.5); WBC 7.4 k/uL (3.8-10.6)
[2024-09-02 16:29] LABS: ALT 16 U/L (4-49); AST 25 U/L (17-59); African American GFR (CKD) >90 (>60 ml/min/1.73 sqM); Albumin 4.4 g/dL (3.5-5.0); Alkaline Phosphatase 52 U/L (38-126); Anion Gap 10 mmol/L; Blood Urea Nitrogen 7 mg/dL (9-20); Calcium 9.1 mg/dL (8.4-10.2); Carbon Dioxide 23 mmol/L (22-30); Chloride 106 mmol/L (98-107); Glucose 96 mg/dL (74-99); Non-African American GFR(CKD) >90 (>60 ml/min/1.73 sqM); Sodium 139 mmol/L (137-145); Total Bilirubin 0.7 mg/dL (0.2-1.3); Total Protein 7.5 g/dL (6.3-8.2)
--- NOTE | 2024-09-02 16:31 | XR ---
EXAMINATION TYPE: XR tibia fibula RT, XR foot complete RT DATE OF EXAM: 09/02/2024 4:24 PM COMPARISON: None CLINICAL INDICATION: Male, 63 years old with history of swelling redness; [facility] TECHNIQUE: XR tibia fibula RT, XR foot complete RT; 2 views of the leg and 3 views of the foot. FINDINGS: No evidence of any acute osseous pathology, joint dislocation, or soft tissue swelling is n oted. Remote injury to the tibial tuberosity. Soft tissue swelling anterior to the knee and along the leg e xtending down around the ankle. Metallic linear body in the medial malleolus and projecting over the soft tissues of the medial ankle/5. Accessory ossicle present near the navicular bone. Mild multileve l degeneration changes throughout the joints of the foot with joint space narrowing and osteophyte fo rmation. IMPRESSION: 1. Diffuse soft tissue swelling throughout the foot and leg, correlate for cellulitis. 2. Metallic linear foreign body in the medial malleolus as well as another within the subcutaneous t issues of the medial foot likely a fracture fragment of the medial malleolus piece. Correlate with hi story of fixation. 3. No evidence of acute fracture. 4. Mild multilevel degeneration changes of the foot. 5. Remote injury to the tibial tuberosity. [facility], , 09/02/2024 4:28 PM
--- NOTE | 2024-09-02 17:47 | ED ---
Extremity Problem HPI - General Source: patient, RN notes reviewed Mode of arrival: ambulatory Limitations: no limitations - History of Present Illness MD Complaint: extremity swelling Onset/Timin -: days(s) Location: right, lower extremity <Antonio Vann - Last Filed: 09/02/24 17:45> <Teressa Isbell - Last Filed: 09/03/24 23:27> - General Chief complaint: Extremity Problem,Nontraumatic Stated complaint: R foot swelling Time Seen by Provider: 09/02/24 15:41 - History of Present Illness Initial comments: Quick note: This is a 63-year-old male complaining of RLE swelling and erythema x 3 days. Patient states color change and edema are moving approximately without known cause. [place] with no recent trauma or open wound. Denies associated pain or tenderness. Denies history of DVT, PE, blood clots, blood thinner use. Denies fever, chills, chest pain, dyspnea, abdominal pain, N/V/D. (Antonio Vann) 63-year-old man presents to the emergency department complaining of right lower extremity swelling and erythema. States that he has been on his feet recently and thought the increase swelling was due to this however he noticed that there was redness associated with the swelling which is now streaking up the leg. He denies any pain. No history of DVT or PE. No chest pain or shortness of breath. Does admit to previous injury to that right ankle 48 years ago where he had pins placed. He has been able to ambulate on the extremity without difficulty. No history of congestive heart failure. No reported fevers. No other alleviating, precipitating or modifying factors (Teressa Isbell) - Related Data Previous Rx's Medication Instructions Recorded Cephalexin [Keflex] 500 mg PO Q6HR #28 cap 09/02/24 Allergies Allergy/AdvReac Type Severity Reaction Status Date / Time No Known Allergies Allergy Verified 07/29/24 17:35 Review of Systems ROS Other: All systems not noted in ROS Statement are negative. <Antonio Vann - Last Filed: 09/02/24 17:45> ROS Other: All systems not noted in ROS Statement are negative. <Teressa Isbell - Last Filed: 09/03/24 23:27> ROS Statement: Those systems with pertinent positive or pertinent negative responses have been documented in the HPI. Past Medical History Past Medical History: No Reported History History of Any Multi-Drug Resistant Organisms: None Reported Past Surgical History: Orthopedic Surgery Past Psychological History: No Psychological Hx Reported Smoking Status: Current every day smoker Past Alcohol Use History: Rare Past Drug Use History: None Reported <Antonio Vann - Last Filed: 09/02/24 17:45> General Exam Limitations: no limitations <Antonio Vann - Last Filed: 09/02/24 17:45> General appearance: alert, in no apparent distress Head exam: Present: atraumatic, normocephalic, normal inspection Eye exam: Present: normal appearance, PERRL, EOMI. Absent: scleral icterus, conjunctival injection, periorbital swelling ENT exam: Present: normal exam, mucous membranes moist Neck exam: Present: normal inspection. Absent: tenderness, meningismus, lymphadenopathy Respiratory exam: Present: normal lung sounds bilaterally. Absent: respiratory distress, wheezes, rales, rhonchi, stridor Cardiovascular Exam: Present: regular rate, normal rhythm, normal heart sounds. Absent: systolic murmur, diastolic murmur, rubs, gallop, clicks GI/Abdominal exam: Present: soft, normal bowel sounds. Absent: distended, tenderness, guarding, rebound, rigid Extremities exam: Present: normal capillary refill, pedal edema, other (Patient has some edema and erythema to the right leg which spans from the right ankle up to the mid calf. Patient does have very dry skin with cracking). Absent: tenderness, joint swelling, calf tenderness Back exam: Present: normal inspection Neurological exam: Present: alert, oriented X3, CN II-XII intact Psychiatric exam: Present: normal affect, normal mood Skin exam: Present: warm, dry, intact, normal color. Absent: rash <Teressa Isbell - Last Filed: 09/03/24 23:27> - General Exam Comments Initial Comments: Visual Physical Exam Vital signs reviewed General: Well-appearing, nontoxic, no acute distress. Head: Normocephalic, atraumatic Eyes: PERRLA, EOMI ENT: Airway patent Chest: Nonlabored breathing Skin: No visual rash, normal skin tone Neuro: Alert and oriented 3 Musculoskeletal: No gross abnormalities. Positive RLE Homans' sign (Antonio Vann) Course Vital Signs 09/02/24 09/02/24 15:36 20:49 Temperature 97.5 F L Pulse Rate 69 68 Respiratory 16 20 Rate Blood Pressure 149/87 171/96 O2 Sat by Pulse 98 100 Oximetry Medical Decision Making - Lab Data Result diagrams: 09/02/24 15:55 09/02/24 15:55 <Antonio Vann - Last Filed: 09/02/24 17:45> - Lab Data Result diagrams: 09/02/24 15:55 09/02/24 15:55 <SukhiTeressa Talat - Last Filed: 09/03/24 23:27> - Medical Decision Making I completed the quick note portion of this chart signed IGNACIO Costa (Antonio Vann) Was pt. sent in by a medical professional or institution ([facility] Moore, S[employer] [facility], urgent care, hospital, or shelter...) When possible be specific @ -No Did you speak to anyone other than the patient for history (EMS, parent, family, police, friend...)? What history was obtained from this source @ -No Did you review nursing and triage notes (agree or disagree)? Why? @ -I reviewed and agree with nursing and triage notes Were old charts reviewed (outside hosp., previous admission, EMS record, old EKG, old radiological studies, urgent care reports/EKG's, shelter records)? Report findings @ -No old charts were reviewed Differential Diagnosis (chest pain, altered mental status, abdominal pain women, abdominal pain men, vaginal bleeding, weakness, fever, dyspnea, syncope, headache, dizziness, GI bleed, back pain, seizure, CVA, palpatations, mental health, musculoskeletal)? @ -Cellulitis, DVT, lymphedema EKG interpreted by me (3pts min.). @ -Not done X-rays interpreted by me (1pt min.). @ -None done CT interpreted by me (1pt min.). @ -None done U/S interpreted by me (1pt. min.). @ -Yes which demonstrates no DVT What testing was considered but not performed or refused? (CT, X-rays, U/S, labs)? Why? @ -None What meds were considered but not given or refused? Why? @ -None Did you discuss the management of the patient with other professionals (professionals i.e. , PA, SPOOL FIXER, lab, RT, psych nurse, drug abuse social worker, client service and consulting manager, teacher, chairman & chief executive officer, behavioral health case manager)? Give summary @ -No Was smoking cessation discussed for >3mins.? @ -No Was critical care preformed (if so, how long)? @ -No Were there social determinants of health that impacted care today? How? (Homelessness, low income, unemployed, alcoholism, drug addiction, transportation, low edu. Level, literacy, decrease access to med. care, group home, rehab)? @ -No Was there de-escalation of care discussed even if they declined (Discuss DNR or withdrawal of care, Hospice)? DNR status @ -No What co-morbidities impacted this encounter? (DM, HTN, Smoking, COPD, CAD, Cancer, CVA, ARF, Chemo, Hep., AIDS, mental health diagnosis, sleep apnea, morbi d obesity)? @ -None Was patient admitted / discharged? Hospital course, mention meds given and rout e, prescriptions, significant lab abnormalities, going to OR and other pertinent info. @ -Upon arrival patient seen and evaluated in bed 9. Thorough history and physical exam was performed. Laboratory studies have been conducted. Ultrasound was performed. X-ray was also performed. Results were discussed with patient. He does have retained hardware that he was unaware was still in his ankle. It does not appear to be a joint related infection. I do feel that the patient is suffering from cellulitis. He will be initiated on antibiotics. His leg is wrapped with an Chaim bandage. He is to elevate his extremity. Follow-up with his primary care doctor in 2 to 4 days. If he does not have any improvement in his swelling in 72 hours, he needs to return to the emergency department. Patient was agreeable with plan and was discharged in stable condition Undiagnosed new problem with uncertain prognosis? @ -No Drug Therapy requiring intensive monitoring for toxicity (Heparin, Nitro, Ins ulin, Cardizem)? @ -No Were any procedures done? @ -No Diagnosis/symptom? @ -Acute right leg swelling and redness, acute right leg cellulitis Acute, or Chronic, or Acute on Chronic? @ -Acute Uncomplicated (without systemic symptoms) or Complicated (systemic symptoms)? @ -Complicated Side effects of treatment? @ -No Exacerbation, Progression, or Severe Exacerbation? @ -No Poses a threat to life or bodily function? How? (Chest pain, [place], [place], pneumonia, PE, COPD, DKA, ARF, appy, cholecystitis, CVA, Diverticulitis, Homicidal, Suicidal, threat to staff... and all critical care pts) @ -No (Teressa Isbell) - Lab Data Lab Results 09/02/24 09/02/24 09/02/24 Range/Units 15:51 15:51 15:55 WBC 7.4 (3.8-10.6) k/uL RBC 3.69 L (4.30-5.90) m/uL Hgb 11.6 L (13.0-17.5) gm/dL Hct 36.3 L (39.0-53.0) % MCV 98.5 (80.0-100.0) fL MCH 31.5 (25.0-35.0) pg MCHC 32.0 (31.0-37.0) g/dL RDW 12.9 (11.5-15.5) % Plt Count 355 (150-450) k/uL MPV 7.5 Neutrophils % 59 % Lymphocytes % 27 % Monocytes % 9 % Eosinophils % 4 % Basophils % 1 % Neutrophils # 4.3 (1.3-7.7) k/uL Lymphocytes # 2.0 (1.0-4.8) k/uL Monocytes # 0.6 (0-1.0) k/uL Eosinophils # 0.3 (0-0.7) k/uL Basophils # 0.0 (0-0.2) k/uL PT 10.5 (10.0-12.5) sec INR 0.9 (<1.2) APTT 26.7 (22.0-30.0) sec Sodium 140 (137-145) mmol/L Potassium 3.9 (3.5-5.1) mmol/L Chloride 106 (98-107) mmol/L Carbon Dioxide 25 (22-30) mmol/L Anion Gap 9 mmol/L BUN 7 L (9-20) mg/dL Creatinine 0.71 (0.66-1.25) mg/dL Est GFR (CKD-EPI)AfAm >90 (>60 ml/min/1.73 sqM) Est GFR (CKD-EPI)NonAf >90 (>60 ml/min/1.73 sqM) Glucose 96 (74-99) mg/dL Plasma Lactic Acid Magan (0.7-2.0) mmol/L Calcium 9.1 (8.4-10.2) mg/dL Total Bilirubin 0.7 (0.2-1.3) mg/dL AST 50 (17-59) U/L ALT 18 (4-49) U/L Alkaline Phosphatase 56 (38-126) U/L Total Protein 7.8 (6.3-8.2) g/dL Albumin 4.5 (3.5-5.0) g/dL 09/02/24 09/02/24 Range/Units 15:55 15:57 WBC (3.8-10.6) k/uL RBC (4.30-5.90) m/uL Hgb (13.0-17.5) gm/dL Hct (39.0-53.0) % MCV (80.0-100.0) fL MCH (25.0-35.0) pg MCHC (31.0-37.0) g/dL RDW (11.5-15.5) % Plt Count (150-450) k/uL MPV Neutrophils % % Lymphocytes % % Monocytes % % Eosinophils % % Basophils % % Neutrophils # (1.3-7.7) k/uL Lymphocytes # (1.0-4.8) k/uL Monocytes # (0-1.0) k/uL Eosinophils # (0-0.7) k/uL Basophils # (0-0.2) k/uL PT (10.0-12.5) sec INR (<1.2) APTT (22.0-30.0) sec Sodium 139 (137-145) mmol/L Potassium 4.0 (3.5-5.1) mmol/L Chloride 106 (98-107) mmol/L Carbon Dioxide 23 (22-30) mmol/L Anion Gap 10 mmol/L BUN 7 L (9-20) mg/dL Creatinine 0.69 (0.66-1.25) mg/dL Est GFR (CKD-EPI)AfAm >90 (>60 ml/min/1.73 sqM) Est GFR (CKD-EPI)NonAf >90 (>60 ml/min/1.73 sqM) Glucose 96 (74-99) mg/dL Plasma Lactic Acid Magan 1.0 (0.7-2.0) mmol/L Calcium 9.1 (8.4-10.2) mg/dL Total Bilirubin 0.7 (0.2-1.3) mg/dL AST 25 (17-59) U/L ALT 16 (4-49) U/L Alkaline Phosphatase 52 (38-126) U/L Total Protein 7.5 (6.3-8.2) g/dL Albumin 4.4 (3.5-5.0) g/dL Disposition <Antonio Vann - Last Filed: 09/02/24 17:45> Is patient prescribed a controlled substance at d/c from ED?: No Time of Disposition: 20:20 <Teressa Isbell - Last Filed: 09/03/24 23:27> Clinical Impression: Edema, Cellulitis, leg Disposition: HOME SELF-CARE Condition: Stable Instructions (If sedation given, give patient instructions): Cellulitis (ED) Additional Instructions: Take the antibiotics as they are prescribed. Follow-up with your primary care doctor for reevaluation of your symptoms. If you do not have improvement in your symptoms within the next 72 hours, return to the emergency department. You need to keep your leg elevated so I do not recommend that you are on your feet. Prescriptions: Cephalexin [Keflex] 500 mg PO Q6HR #28 cap Referrals: Krisitn Cavanaugh MD [Primary Care Provider] - 1-2 days
[2024-09-02 18:12] LABS: INR 0.9 (<1.2); Partial Thromboplastin Time 26.7 sec (22.0-30.0); Prothrombin Time 10.5 sec (10.0-12.5)
[2024-09-02 18:21] LABS: ALT 18 U/L (4-49); AST 50 U/L (17-59); African American GFR (CKD) >90 (>60 ml/min/1.73 sqM); Albumin 4.5 g/dL (3.5-5.0); Alkaline Phosphatase 56 U/L (38-126); Anion Gap 9 mmol/L; Blood Urea Nitrogen 7 mg/dL (9-20); Calcium 9.1 mg/dL (8.4-10.2); Carbon Dioxide 25 mmol/L (22-30); Chloride 106 mmol/L (98-107); Glucose 96 mg/dL (74-99); Non-African American GFR(CKD) >90 (>60 ml/min/1.73 sqM); Potassium 3.9 mmol/L (3.5-5.1); Sodium 140 mmol/L (137-145); Total Bilirubin 0.7 mg/dL (0.2-1.3); Total Protein 7.8 g/dL (6.3-8.2)
--- NOTE | 2024-09-02 19:06 | US ---
EXAMINATION TYPE: US venous doppler duplex LE RT DATE OF EXAM: 09/02/2024 6:39 PM COMPARISON: Previous study 07/30/2024. CLINICAL INDICATION: Male, 63 years old with history of s/o RLE edema with color change; Right leg sw elling. , Pain TECHNIQUE: The lower extremity deep venous system is examined utilizing real time linear array sonog sally with graded compression, color doppler sonography, and spectral doppler. SIDE PERFORMED: Right FINDINGS: VESSELS IMAGED: Common Femoral Vein Deep Femoral Vein Greater Saphenous Vein Femoral Vein Popliteal Vein Small Saphenous Vein Proximal Calf Veins Right Leg: Negative for DVT, Color Doppler imaging shows patency of the vessels. Spectral waveforms are within normal limits. IMPRESSION: No ultrasound evidence for deep venous thrombosis. [facility], , 09/02/2024 7:04 PM
[2024-09-02] MEDS: cefTRIAXone IN SWFI 1,000 MG/10 ML SYRINGE IVP STA (20:35)
[2024-09-02 20:50] VITALS: BP 171/96; PULSE 68; RESP 20
== END 2024-09-02 20:50 | disposition home or self-care (01) ==
LOC: EC 15:23
DX: L03.115 Cellulitis of right lower limb (principal); F17.200 Nicotine dependence, unspecified, uncomplicated
CPT/HCPCS: 36415; 80053; 83605; 85025; 85610; 85730; 87040; 73590; 73630; 93971; 99284; 96374; J0696

== ENCOUNTER 2024-12-10 11:41 | Emergency (ER) | payer OTHER ==
--- NOTE | 2024-12-10 12:09 | ED ---
General Adult HPI - General Chief complaint: Extremity Problem,Nontraumatic Stated complaint: L shoulder pain Time Seen by Provider: 12/10/24 12:05 Source: patient Mode of arrival: ambulatory Limitations: no limitations - History of Present Illness Initial comments: Patient presents the ED complaining of having intermittent left-sided chest pain that radiates to the left side of his back for the past couple of days. Patient also states that he has had associated pain and "tingling" that radiates down his left arm. Patient states that his pain is currently mild in severity. Patient denies any known trauma or injury, fever or chills, headache, focal weakness, visual changes, speech difficulty, neck/lower back pain, pleuritic pain, dyspnea, cough or cold symptoms, nausea/vomiting/diaphoresis, abdominal pain, diarrhea, bloody or melanotic stool, dysuria or urinary symptoms, decreased urine output, leg or calf swelling or pain, or any other symptoms or complaints. - Related Data Previous Rx's Medication Instructions Recorded Cephalexin [Keflex] 500 mg PO Q6HR #28 cap 09/02/24 methylPREDNISolone Dose Pack 24 mg PO DAILY #1 tab 12/10/24 [Medrol Dose Pack] Allergies Allergy/AdvReac Type Severity Reaction Status Date / Time No Known Allergies Allergy Verified 07/29/24 17:35 Review of Systems ROS Statement: Those systems with pertinent positive or pertinent negative responses have been documented in the HPI. ROS Other: All systems not noted in ROS Statement are negative. Past Medical History Past Medical History: No Reported History History of Any Multi-Drug Resistant Organisms: None Reported Past Surgical History: Orthopedic Surgery Past Psychological History: No Psychological Hx Reported Smoking Status: Current every day smoker Past Alcohol Use History: Rare Past Drug Use History: None Reported General Exam Limitations: no limitations General appearance: alert, in no apparent distress Head exam: Present: atraumatic Eye exam: Present: normal appearance ENT exam: Present: mucous membranes moist Neck exam: Present: normal inspection, full ROM, other (Trachea is in midline). Absent: tenderness Respiratory exam: Present: normal lung sounds bilaterally. Absent: respiratory distress, wheezes, rales, rhonchi, stridor, chest wall tenderness Cardiovascular Exam: Present: regular rate, normal rhythm, normal heart sounds, other (Normal radial pulses bilaterally) GI/Abdominal exam: Present: soft. Absent: distended, tenderness, guarding Extremities exam: Present: normal inspection, full ROM, other (Negative Homans' sign bilaterally). Absent: tenderness, pedal edema, calf tenderness Back exam: Present: normal inspection, full ROM. Absent: tenderness Neurological exam: Present: alert, oriented X3, CN II-XII intact. Absent: motor sensory deficit Skin exam: Present: warm, dry, normal color Course Vital Signs 12/10/24 11:54 Temperature 97.5 F L Pulse Rate 72 Respiratory 20 Rate Blood Pressure 138/93 O2 Sat by Pulse 96 Oximetry - Reevaluation(s) Reevaluation #1: 12/10/24 14:02 Patient denies development of any new pain or symptoms while in the ED. Patient continues to have a normal neurological exam. Patient remains alert and breathing comfortably. Patient is aware of his test results, and he feels comfortable being discharged home at this time. He was counseled about chest/back pain and arm paresthesias/cervical radiculopathy. He was clearly explained return and follow-up instructions. He was instructed to follow-up closely with his primary care provider. He feels comfortable with this plan. EKG Findings - EKG Comments: EKG Findings:: ED physician interpretation (interpreted by me): Normal sinus rhythm, no ectopy, ventricular rate of 70 bpm, normal HI and QRS intervals, normal QT interval, normal axis, no ST or T wave abnormality Medical Decision Making - Medical Decision Making Was pt. sent in by a medical professional or institution (SINDHU Moore, MANAGER OF SELECTION AND ASSESSMENT, urgent care, hospital, or fci...) When possible be specific @ -No Did you speak to anyone other than the patient for history (EMS, parent, family, police, friend...)? What history was obtained from this source @ -No Did you review nursing and triage notes (agree or disagree)? Why? @ -I reviewed and agree with nursing and triage notes Were old charts reviewed (outside hosp., previous admission, EMS record, old EK G, old radiological studies, urgent care reports/EKG's, fci records)? Report findings @ -No old charts were reviewed Differential Diagnosis (chest pain, altered mental status, abdominal pain women, abdominal pain men, vaginal bleeding, weakness, fever, dyspnea, syncope, headache, dizziness, GI bleed, back pain, seizure, CVA, palpatations, mental health, musculoskeletal)? @ -ACS/OR, chest wall pain/strain, back pain, DDD, DJD, herniated disc disease, radiculopathy, neuropathy, paresthesias, fracture, muscle spasm, GERD, pneumothorax, pleurisy, pleural effusion, PE, dissection, this is not meant to be a complete list. EKG interpreted by me (3pts min.). @ -As above X-rays interpreted by me (1pt min.). @ -Chest x-ray was reviewed myself and shows no acute pulmonary process. I a gree with the radiologist's interpretation as above. CT interpreted by me (1pt min.). @ -Noncontrast head and cervical spine CTs were reviewed myself. Head CT shows no acute intracranial abnormality. Cervical spine CT shows no acute fracture, but does demonstrate degenerative disc disease. I agree with the radiologist's interpretations as above. U/S interpreted by me (1pt. min.). @ -None done What testing was considered but not performed or refused? (CT, X-rays, U/S, labs)? Why? @ -None What meds were considered but not given or refused? Why? @ -None Did you discuss the management of the patient with other professionals (professionals i.e. , PA, MANAGER OF SELECTION AND ASSESSMENT, lab, RT, psych nurse, psychiatric social worker supervisor, project archivist, teacher, residential care officer, briefcase sewer)? Give summary @ -No Was smoking cessation discussed for >3mins.? @ -No Was critical care preformed (if so, how long)? @ -No Were there social determinants of health that impacted care today? How? (Homelessness, low income, unemployed, alcoholism, drug addiction, transportation, low edu. Level, literacy, decrease access to med. care, longterm, rehab)? @ -No Was there de-escalation of care discussed even if they declined (Discuss DNR or withdrawal of care, Hospice)? DNR status @ -No What co-morbidities impacted this encounter? (DM, HTN, Smoking, COPD, CAD, Cancer, CVA, ARF, Chemo, Hep., AIDS, mental health diagnosis, sleep apnea, morbid obesity)? @ -None Was patient admitted / discharged? Hospital course, mention meds given and route, prescriptions, significant lab abnormalities, going to OR and other pertinent info. @ -Patient's labs are fairly unremarkable, including normal troponin and d- dimer levels. Patient's EKG and chest X-ray are also fairly unremarkable. Patient's imaging studies are remarkable for cervical degenerative disc disease and neural foraminal narrowing. Given these findings and the patient's symptoms, I suspect that his left arm pain/tingling is likely due to cervical radiculopathy. I do not think that the patient's symptoms are likely cardiac in etiology, and I do not suspect an emergent medical condition at this time. Will discharge patient home at this time. Clear return and follow-up instructions were provided. Patient feels comfortable with this plan. Will provide patient with a prescription for a Medrol Dosepak. A work restriction form was also completed for the patient, limiting him to less than 5 pounds of lifting. Undiagnosed new problem with uncertain prognosis? @ -No Drug Therapy requiring intensive monitoring for toxicity (Heparin, Nitro, Insulin, Cardizem)? @ -No Were any procedures done? @ -No Diagnosis/symptom? @ -Chest pain, back pain, left arm pain and paresthesias, suspected cervical radiculopathy Acute, or Chronic, or Acute on Chronic? @ -Acute Uncomplicated (without systemic symptoms) or Complicated (systemic symptoms)? @ -Default Side effects of treatment? @ -No Exacerbation, Progression, or Severe Exacerbation? @ -No Poses a threat to life or bodily function? How? (Chest pain, USA, OR, pneumonia, PE, COPD, DKA, ARF, appy, cholecystitis, CVA, Diverticulitis, Homicidal, Suicidal, threat to staff... and all critical care pts) @ -No - Lab Data Result diagrams: 12/10/24 12:32 12/10/24 12:32 Lab Results 12/10/24 12/10/24 12/10/24 Range/Units 12:32 12:32 12:32 WBC 5.7 (3.8-10.6) k/uL RBC 4.31 (4.30-5.90) m/uL Hgb 12.9 L (13.0-17.5) gm/dL Hct 39.7 (39.0-53.0) % MCV 92.1 (80.0-100.0) fL MCH 30.1 (25.0-35.0) pg MCHC 32.6 (31.0-37.0) g/dL RDW 12.7 (11.5-15.5) % Plt Count 327 (150-450) k/uL MPV 7.6 Neutrophils % 53 % Lymphocytes % 34 % Monocytes % 7 % Eosinophils % 4 % Basophils % 1 % Neutrophils # 3.0 (1.3-7.7) k/uL Lymphocytes # 1.9 (1.0-4.8) k/uL Monocytes # 0.4 (0-1.0) k/uL Eosinophils # 0.2 (0-0.7) k/uL Basophils # 0.0 (0-0.2) k/uL PT 10.4 (10.0-12.5) sec INR 0.9 (<1.2) APTT 26.4 (22.0-30.0) sec D-Dimer 0.48 (<0.60) mg/L FEU Sodium 137 (137-145) mmol/L Potassium 4.3 (3.5-5.1) mmol/L Chloride 104 (98-107) mmol/L Carbon Dioxide 24 (22-30) mmol/L Anion Gap 9 mmol/L BUN 14 (9-20) mg/dL Creatinine 0.66 (0.66-1.25) mg/dL Est GFR (CKD-EPI)AfAm >90 (>60 ml/min/1.73 sqM) Est GFR (CKD-EPI)NonAf >90 (>60 ml/min/1.73 sqM) Glucose 113 H (74-99) mg/dL Calcium 9.4 (8.4-10.2) mg/dL Magnesium 1.9 (1.6-2.3) mg/dL Total Bilirubin 0.4 (0.2-1.3) mg/dL AST 24 (17-59) U/L ALT 20 (4-49) U/L Alkaline Phosphatase 42 (38-126) U/L Troponin I (0.000-0.034) ng/mL NT-Pro-B Natriuret Pep 249 pg/mL Total Protein 7.5 (6.3-8.2) g/dL Albumin 4.4 (3.5-5.0) g/dL 12/10/24 Range/Units 12:32 WBC (3.8-10.6) k/uL RBC (4.30-5.90) m/uL Hgb (13.0-17.5) gm/dL Hct (39.0-53.0) % MCV (80.0-100.0) fL MCH (25.0-35.0) pg MCHC (31.0-37.0) g/dL RDW (11.5-15.5) % Plt Count (150-450) k/uL MPV Neutrophils % % Lymphocytes % % Monocytes % % Eosinophils % % Basophils % % Neutrophils # (1.3-7.7) k/uL Lymphocytes # (1.0-4.8) k/uL Monocytes # (0-1.0) k/uL Eosinophils # (0-0.7) k/uL Basophils # (0-0.2) k/uL PT (10.0-12.5) sec INR (<1.2) APTT (22.0-30.0) sec D-Dimer (<0.60) mg/L FEU Sodium (137-145) mmol/L Potassium (3.5-5.1) mmol/L Chloride (98-107) mmol/L Carbon Dioxide (22-30) mmol/L Anion Gap mmol/L BUN (9-20) mg/dL Creatinine (0.66-1.25) mg/dL Est GFR (CKD-EPI)AfAm (>60 ml/min/1.73 sqM) Est GFR (CKD-EPI)NonAf (>60 ml/min/1.73 sqM) Glucose (74-99) mg/dL Calcium (8.4-10.2) mg/dL Magnesium (1.6-2.3) mg/dL Total Bilirubin (0.2-1.3) mg/dL AST (17-59) U/L ALT (4-49) U/L Alkaline Phosphatase (38-126) U/L Troponin I <0.012 (0.000-0.034) ng/mL NT-Pro-B Natriuret Pep pg/mL Total Protein (6.3-8.2) g/dL Albumin (3.5-5.0) g/dL - Radiology Data Chest x-ray: No acute pulmonary process. Noncontrast CT head: No acute intracranial process. Follow-up MRI can be performed as clinically indicated. Noncontrast CT cervical spine: 1. No acute osseous abnormality cervical spine. 2. Severe bilateral foraminal narrowing due to advanced uncovertebral joint hypertrophy. 3. Degenerative disc changes greatest at C4-5 C5-6 and C6-7. Disposition Clinical Impression: Chest pain, Back pain, Arm paresthesia, left Narrative: Suspected cervical radiculopathy Disposition: HOME SELF-CARE Condition: Stable Instructions (If sedation given, give patient instructions): Chest Pain (ED), Paresthesia (ED), Cervical Radiculopathy (ED), Back Pain (ED) Additional Instructions: Return to the ER immediately should you develop new or worsening pain, new area of numbness/tingling, weakness, shortness of breath, a fever, vomiting, feeling dizzy or faint, or new or worsening symptoms. Follow-up closely with your primary care provider. Prescriptions: methylPREDNISolone Dose Pack [Medrol Dose Pack] 24 mg PO DAILY #1 tab Is patient prescribed a controlled substance at d/c from ED?: No Referrals: Kristin Cavanaugh MD [Primary Care Provider] - 1-2 days Time of Disposition: 14:05
[2024-12-10 12:52] LABS: Basophils % (A) 1 %; Eosinophils # (A) 0.2 k/uL (0-0.7); Eosinophils % (A) 4 %; HCT 39.7 % (39.0-53.0); HGB 12.9 gm/dL (13.0-17.5); Lymphocytes # (A) 1.9 k/uL (1.0-4.8); Lymphocytes % (A) 34 %; MCH 30.1 pg (25.0-35.0); MCHC 32.6 g/dL (31.0-37.0); MCV 92.1 fL (80.0-100.0); Mean Platelet Volume 7.6; Monocytes # (A) 0.4 k/uL (0-1.0); Monocytes % (A) 7 %; Neutrophils % (A) 53 %; Platelet Count 327 k/uL (150-450); RBC 4.31 m/uL (4.30-5.90); RDW 12.7 % (11.5-15.5); WBC 5.7 k/uL (3.8-10.6)
[2024-12-10 12:58] LABS: ALT 20 U/L (4-49); AST 24 U/L (17-59); African American GFR (CKD) >90 (>60 ml/min/1.73 sqM); Albumin 4.4 g/dL (3.5-5.0); Alkaline Phosphatase 42 U/L (38-126); Anion Gap 9 mmol/L; Blood Urea Nitrogen 14 mg/dL (9-20); Calcium 9.4 mg/dL (8.4-10.2); Carbon Dioxide 24 mmol/L (22-30); Chloride 104 mmol/L (98-107); Glucose 113 mg/dL (74-99); Magnesium 1.9 mg/dL (1.6-2.3); Non-African American GFR(CKD) >90 (>60 ml/min/1.73 sqM); Potassium 4.3 mmol/L (3.5-5.1); Sodium 137 mmol/L (137-145); Total Bilirubin 0.4 mg/dL (0.2-1.3); Total Protein 7.5 g/dL (6.3-8.2)
[2024-12-10 13:07] LABS: NT-Pro-B-Type Natriuretic Pept 249 pg/mL
[2024-12-10 13:08] LABS: INR 0.9 (<1.2); Partial Thromboplastin Time 26.4 sec (22.0-30.0); Prothrombin Time 10.4 sec (10.0-12.5)
--- NOTE | 2024-12-10 13:32 | XR ---
EXAMINATION TYPE: XR chest 2V DATE OF EXAM: 12/10/2024 12:49 PM COMPARISON: 07/29/2024 CLINICAL INDICATION: Male, 64 years old with history of Chest Pain, TECHNIQUE: XR chest 2V view(s) obtained. FINDINGS: The heart size is normal. The pulmonary vasculature is normal. The lungs are clear. IMPRESSION: 1. No acute pulmonary process. [facility], , 12/10/2024 1:29 PM
--- NOTE | 2024-12-10 13:37 | CT ---
EXAMINATION TYPE: CT brain baldoine wo con DATE OF EXAM: 12/10/2024 12:54 PM COMPARISON: None. CLINICAL INDICATION: Male, 64 years old with history of left arm tingling, Left arm tingling and shou lder pain, pain TECHNIQUE: CT of the brain is performed utilizing 3 mm thick sections through the posterior fossa and 3 mm thick sections through the remaining calvarium. Study is performed within 24 hours of arrival to the hospital. Contrast used: mL of , (none if empty) CT DLP: 1288.8 mGycm, Automated exposure control for dose reduction was used. FINDINGS: No abnormal hyperdensity is present to suggest an acute intracranial hemorrhage. No mass lesion is evident. There is calcification along the right falx could be an old calcified meni ngioma. No significant mass effect on the adjacent brain is evident. No acute infarcts are evident. Ventricles and sulci are appropriate for the patient age. Paranasal sinuses and mastoid air cells within the [id number] are clear. IMPRESSIONS: 1. No acute intracranial process. Follow-up MRI can be performed as clinically indicated. CT cervical spine. COMPARISON: None TECHNIQUE: CT of the cervical spine is performed in the axial plane at 2 mm thick sections. Reconstr ucted images in the coronal, and sagittal plane are reviewed on the computer. FINDINGS: No acute fractures are evident. Vertebral body alignment is normal. There is narrowing of disc height present C4-5 C5-6 C6-7. Anterior vertebral body spurring is present through these levels. Vertebral body heights are preserved. No spinal canal stenosis is evident. Severe left foraminal stenosis C2-3 is present from uncovertebral joint hypertrophy. Severe foraminal stenosis present C3-4 from uncovertebral joint hypertrophy and facet hypertrophy. More moderate righ t foraminal narrowing from uncovertebral joint hypertrophy is present at this level. Moderate to dory re bilateral foraminal narrowing from uncovertebral joint hypertrophy is present C4-5 C5-6 and C6-7. IMPRESSION: 1. No acute osseous abnormality cervical spine. 2. Severe bilateral foraminal narrowing due to advanced uncovertebral joint hypertrophy. 3. Degenerative disc changes greatest C4-5 C5-6 and C6-7. [facility], , 12/10/2024 1:35 PM
[2024-12-10 14:25] VITALS: BP 151/90; PULSE 67; RESP 18; TEMP 97.6
== END 2024-12-10 14:43 | disposition home or self-care (01) ==
LOC: EC 11:41
DX: M54.9 Dorsalgia, unspecified (principal); R07.9 Chest pain, unspecified; R20.2 Paresthesia of skin; F17.200 Nicotine dependence, unspecified, uncomplicated
CPT/HCPCS: 36415; 70450; 71046; 72125; 80053; 83735; 83880; 84484; 85025; 85379; 85610; 85730; 93005; 99284